=== PATIENT | male | born 1945 | race Caucasian/White ===

== ENCOUNTER 2024-10-03 12:27 | Outpatient (AMB) | payer OTHER, SELFPAY ==
--- OUTSIDE RECORDS SUMMARY | 2003-08-25 14:45 | XMS_ITS | Continuity of Care Document ---
Author Organization [facility] Address [address] [place] [phone] Phone Care Team Providers Care Acquisition Marketing Manager Name Role Phone Unavailable Unavailable Unavailable Advance Directives Directive Yes / No Effective Date File Name No Information Encounters Encounter Description Practice Location Reason(s) For Visit Diagnoses Date Provider [facility], [address] [place] [address], [place], [place], [id number], [place] tel:[phone] [facility] No Information 2003 No Information Family History Family Member Type Diagnosis Age At Onset No Information Payers Payer name Insurance type Covered democrat ID Authoriza tion(s) No Information Social History Type Description Quantity Date Captured Comments Sex Male Smoking Status No Information Chief Complaint And Reason For Visit No Information History Of Present Illness Encounter Date Complaint History Of Prese nt Illness No Information Instructions Date Instruction Additional Infor mation No Information Assessments Type Assessment Date No Information
--- NOTE | 2024-10-03 12:31 | A.OFFVIS_ITS ---
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 He was actually referred by his prior PCP Dr. [place], but patient states that his new PCP is now Dr. Doe. Any case, he does not have any known cardiac issues including coronary disease or myocardial infarction or cardiomyopathy. He states that he can randomly feels some heart fluttering. He has had that for the last 6 months or so. He does not have any clear-cut exertional angina. However, he states that sometimes when he runs to catch a bus he has noticed some shortness of breath/pressure. [facility] Medical History Macular degeneration of left eye Thyroiditis Primary hypertension Surgical History (Updated 10/03/24 @ 13:01 by Kevin Oglesby MD) Hx of partial adrenalectomy History of cataract surgery Family History (Updated 10/03/24 @ 12:36 by Ana Rosa Yo CMA) Father Heart attack Cerebral hemorrhage Social History (Updated 10/03/24 @ 12:37 by Ana Rosa Yo CMA) Alcohol intake: current Alcohol type: beer and wine Patient Tobacco Use Status: Never used Tobacco Review of Systems Const Denies chills, Denies fatigue, Denies fever(s), Denies frequent falls, Denies weakness, Denies weight gain and Denies weight loss ENT Denies dizziness Card Denies chest pain, Denies leg edema, Denies lightheadedness, Denies palpitations, Denies dyspnea, Denies dyspnea on exertion and Denies orthopnea Resp Denies cough, Denies dyspnea and Denies dyspnea on exertion GI Denies bloating and Denies change in bowel habits Musc Denies muscle weakness, Denies numbness and Denies tingling Neuro Denies dizziness, Denies frequent falls, Denies numbness, Denies tingling and Denies weakness Endo Denies fatigue and Denies palpitations Physical Exam Vital Signs: Last Vital Signs Pulse 91 10/03/24 12:33 BP 142/80 H 10/03/24 12:33 BMI result Body Mass Index 16.8 Const General: comfortable and no acute distress Orientation/consciousness: patient oriented x3 HEENT Other: Unremarkable Head: Yes normal to inspection Neck Neck: Yes normal visual inspection Chest Chest palpation & inspection: normal inspection of the chest Resp Auscultation: clear to auscultation bilaterally Cardio Palpation: normal PMI Heart sounds: S1 normal heart sound present, S2 normal heart sound present, no gallops, no murmurs and no rubs GI Palpation (GI): Soft to palpation Back/Spine/Pelvis Other: unremarkable Skin General skin exam: no rashes or lesions noted Neuro General: patient oriented x3 Extrem General: Yes normal to inspection Psych Mental Status: mental status grossly normal Office Procedures EKG Details: EKG with underlying sinus rhythm at 91/Min; frequent PVCs with right bundle morphology. [id number], Complete Assessment & Plan Assessment & Plan (1) PVC (premature ventricular contraction): Code(s): I49.3 - Ventricular premature depolarization Category: Medical Plan: Frequent PVCs on EKG. We will start with a comprehensive workup including echocardiogram, Holter monitor and exercise stress test. We discussed about this today and he is agreeable. (2) Primary hypertension: Code(s): I10 - Essential (primary) hypertension Category: Medical Plan: On lisinopril. Borderline blood pressures. May possibly need higher dosage in the future. Plan Discussion Notes I discussed with the patient the need for further cardiac evaluation to better understand the irregular heart rhythm and chest pain experienced during exertion. We talked about the importance of monitoring blood pressure and potentially adjusting the lisinopril dosage. Patient was informed and verbally consented to the use of an ambient scribe for clinic note documentation during this visit. He will need to do the lab work ordered before his testing. Orders: Orders ECG 3 day holter monitor Today I49.3 - Ventricular premature depolarization, R00.2 - Palpitations CA echo transthoracic complete Today I49.3 - Ventricular premature depolarization CA stress test Today I49.3 - Ventricular premature depolarization, R07.2 - Precordial pain NM cardiolite stress test Today I49.3 - Ventricular premature depolarization, R07.2 - Precordial pain Patient Instructions: - Undergo the scheduled echocardiogram, Holter monitor, and stress test. - Monitor blood pressure regularly and report any significant changes. - Follow up with the physician to discuss test results and any necessary adjustments to medication. Coding Level of Care Code New Pt Level 4 (57279) Complex EM visit Add On G2211 Diagnoses PVC (premature ventricular contraction) I49.3 Primary hypertension I10 CPT Codes EKG - CPT: 51575-Emudbxorodjwsdeul, Complete ([id number])
[2024-10-03 12:33] VITALS: BP 142/80; PULSE 91; BMI 16.8
--- OUTSIDE RECORDS SUMMARY | 2024-10-03 12:43 | XMS_ITS | Encounter Summary ---
Author Organization [facility] Address [address] [place] [address] Care Team Providers Care Social Science Professor Name Role Phone Physician, Pcp Unknown Primary Care Provider Susan vailable Encounter Details Date Type Department Care Team (Late st Contact Info) Description 08/07/2024 Lab Requisition [facility] - Main Lab [address] [facility] [place] [address] Vikram Soto PA [address] [facility] [address] [place], [place] [id number] Essential (primary) hypertension; Unspecified abdominal hernia without obstruction or gangrene; Other snf (current) drug therapy; Encounter for screening for malignant neoplasm of prostate Social History Tobacco Use Types Packs/Day Years Used Date Smoking Tobacco: Never Assessed Sex and Gender Information Value Date Recorded Sex Assigned at Not on file Legal Sex Male 8:38 PM EST Gender Identity Not on file Sexual Orientation Not on file documented as of this encounter Plan of Treatment Not on file documented as of this encounter Procedures Procedure Name Priority Date/Time Associated Diagnosis Comments PROSTATE SPECIFIC ANTIGEN SCREEN Routine 08/07/2024 12:00 AM EDT Essential (primary) hypertension Unspecified abdominal hernia without obstruction or gangrene 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 Encounter for screening for malignant neoplasm of prostate URINALYSIS WITH REFLEX MICROSCOPIC AND CULTURE Routine 08/07/2024 12:00 AM EDT Essential (primary) hypertension Unspecified abdominal hernia without obstruction or gangrene Other snf (current) drug therapy Encounter for screening for malignant neoplasm of prostate STEWART URINE CULTURE TUBE Routine 08/07/2024 12:00 AM EDT Essential (primary) hypertension Unspecified abdominal hernia without obstruction or gangrene Other snf (current) drug therapy Encounter for screening for malignant neoplasm of prostate SST - GOLD Routine 08/07/2024 12:00 AM EDT Essential (primary) hypertension Unspecified abdominal hernia without obstruction or gangrene 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 Encounter for screening for malignant neoplasm of prostate DRUG ABUSE SCREEN 8A PANEL, URINE Routine 08/07/2024 12:00 AM EDT Essential (primary) hypertension Unspecified abdominal hernia without obstruction or gangrene 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 Encounter for screening for malignant neoplasm of prostate CBC WITH AUTO DIFFERENTIAL Routine 08/07/2024 12:00 AM EDT Essential (primary) hypertension Unspecified abdominal hernia without obstruction or gangrene 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 Encounter for screening for malignant neoplasm of prostate LAVENDER - EDTA Routine 08/07/2024 12:00 AM EDT Essential (primary) hypertension Unspecified abdominal hernia without obstruction or gangrene Other snf (current) drug therapy Encounter for screening for malignant neoplasm of prostate VITAMIN D 25 HYDROXY Routine 08/07/2024 12:00 AM EDT Essential (primary) hypertension Unspecified abdominal hernia without obstruction or gangrene 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 Encounter for screening for malignant neoplasm of prostate URINALYSIS WITH REFLEX MICROSCOPIC AND CULTURE Routine 08/07/2024 12:00 AM EDT Essential (primary) hypertension Unspecified abdominal hernia without obstruction or gangrene Other snf (current) drug therapy Encounter for screening for malignant neoplasm of prostate CBC AND DIFFERENTIAL Routine 08/07/2024 12:00 AM EDT Essential (primary) hypertension Unspecified abdominal hernia without obstruction or gangrene Other snf (current) drug therapy Encounter for screening for malignant neoplasm of prostate C-REACTIVE PROTEIN Routine 08/07/2024 12 :00 AM EDT Essential (primary) hypertension Unspecified abdominal hernia without obstruction or gangrene 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 Encounter for screening for malignant neoplasm of prostate THYROID STIMULATING HORMONE Routine 08/07/2024 12:00 AM EDT Essential (primary) hypertension Unspecified abdominal hernia without obstruction or gangrene Other snf (current) drug therapy Encounter for screening for malignant neoplasm of prostate THYROXINE FREE Routine 08/07/2024 12:00 AM EDT Essential (primary) hypertension Unspecified abdominal hernia without obstruction or gangrene Other snf (current) drug therapy Encounter for screening for malignant neoplasm of prostate MAGNESIUM Routine 08/07/2024 12:00 AM EDT Essential (primary) hypertension Unspecified abdominal hernia without obstruction or gangrene 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 Encounter for screening for malignant neoplasm of prostate HEMOGLOBIN A1C Routine 08/07/2024 12:00 AM EDT Essential (primary) hypertension Unspecified abdominal hernia without obstruction or gangrene 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 Encounter for screening for malignant neoplasm of prostate VITAMIN B12 Routine 08/07/2024 12:00 AM EDT Essential (primary) hypertension Unspecified abdominal hernia without obstruction or gangrene Other snf (current) drug therapy Encounter for screening for malignant neoplasm of prostate COMPREHENSIVE METABOLIC PANEL Routine 08/07/2024 12:00 AM EDT Essential (primary) hypertension Unspecified abdominal hernia without obstruction or gangrene Other snf (current) drug therapy Encounter for screening for malignant neoplasm of prostate documented in this encounter Results * Urinalysis with reflex microscopic and culture (08/07/2024 12:00 AM EDT) [facility] Specific [place] Urine 1.010 1.003 - 1.030 LAB URINALYSIS - AUTOMATED METHOD 08/07/2024 7:53 PM [facility] pH, Urine 7.0 5.0 - 8.0 pH LAB URINALYSIS - AUTOMATED METHOD 08/07/2024 7:53 PM [facility] Leukocytes, Urine Negative Negative LAB URINALYSIS - AUTOMATED METHOD 08/07/2024 7:[address] [facility] Nitrite, Urine Negative Negative LAB URINALYSIS - AUTOMATED METHOD 08/07/2024 7:[address] [facility] Protein, Urine Negative <=Trace mg/dL LAB UR[facility]ALYSIS - [facility]OMATED METHOD [facility]07[facility]2024 7[facility] Glucose, Urine Negative Negative mg/dL LAB URINALYSIS - AUTOMATED METHOD 08/07/2024 7:53 [facility] Ketones, Urine Negative Negative mg/dL LAB URINALYSIS - AUTOMATED METHOD 08/07/2024 7:53 PM [facility] Urobilinogen, Urine 0.2 0.2 - 1.0 mg/dL LAB URINALYSIS - AUTOMATED METHOD 08/07/2024 7:53 PM [facility] Bilirubin, Urine Negative Negative LAB URINALYSIS - AUTOMATED METHOD 08/07/2024 7:53 [facility] Blood, Urine Negative Negative LAB URINALYSIS - AUTOMATED METHOD 08/07/2024 7:53 PM [facility] Urine Urine specimen obtained by clean catch procedure / Unknown 08/07/2024 08/07/2024 7:11 PM EDT Vikram AMARO LAB URINE ORDERABLES Final Res ult [facility] [address] [place] [address], * Stewart urine culture tube (08/07/2024 12:00 AM EDT) Extra Tube Hold for add-ons. 08/07/2024 9:[address] [facility] Comment:Auto resulted. Urine Urine specimen obtained by clean catch procedure / Unknown 08/07/2024 08/07/2024 7:05 PM EDT Vikram AMARO LAB URINE ORDERABLES Final Res ult Performing Organization Address [facility]/ZIP Co de Phone Number [facility] [address] [place] [address], [place] [phone] * Lavender tube (08/07/2024 12:00 AM EDT) Extra Tube Hold for add-ons. 08/07/2024 9:[address] [facility] Comment:Auto resulted. Blood Venous blood specimen / Unknown 08/07/2024 08/07/2024 7:05 PM EDT Vikram AMARO LAB BLOOD ORDERABLES Final Res ult Performing Organization Address [facility] Co de Phone Number [facility] [address] [place] [address], [place] [phone] * SST tube (08/07/2024 12:00 AM EDT) Extra Tube Hold for add-ons. 08/07/2024 9:[address] [facility] Comment:Auto resulted. Blood Venous blood specimen / Unknown 08/07/2024 08/07/2024 7:05 PM EDT Vikram AMARO LAB BLOOD ORDERABLES Final Res ult Performing Organization Address City/[facility]/ZIP Co de Phone Number [facility] [address] [place] [address], [place] [phone] * (ABNORMAL) CBC auto differential (08/07/2024 12:00 AM EDT) WBC 5.1 4.8 - 10.8 K/[facility] LAB HEMETOLOGY METHOD 08/07/2024 7:[address] [facility] RBC 4.80 4.50 - 5.50 M/mcL LAB HEMETOLOGY METHOD 08/07/2024 7:[address] [facility] Hemoglobin 14.1 13.5 - 17.5 g/dL LAB HEMETOLOGY METHOD 08/07/2024 7:28 PM [facility] Hematocrit 42.6 42.0 - 54.0 % LAB HEMETOLOGY METHOD 08/07/2024 7:28 PM [facility] MCV 89.5 79.0 - 98.0 FL LAB HEMETOLOGY METHOD 08/07/2024 7:28 [facility] MCH 29.6 27.0 - 32.0 pcg LAB HEMETOLOGY METHOD 08/07/2024 7:28 PM [facility] MCHC 33.1 32.0 - 37.0 g/dL LAB HEMETOLOGY METHOD 08/07/2024 7:28 PM [facility] RDW 12.7 11.0 - 15.0 % LAB HEMETOLOGY METHOD 08/07/2024 7:28 PM [facility] Platelets 162 130 - 400 K/mcL LAB HEMETOLOGY METHOD 08/07/2024 7:28 PM [facility] MPV 11.5(H) 7.0 - 11.0 FL LAB HEMETOLOGY METHOD 08/07/2024 7:28 PM [facility] NRBC 0.0 <1.0 % LAB HEMETOLOGY METHOD 08/07/2024 7:28 PM [facility] NRBC Absolute 0.00 <0.10 K/mcL LAB HEMETOLOGY METHOD 08/07/2024 7:28 [facility] Neutrophils Relative 48.3 % LAB HEMETOLOGY METHOD 08/07/2024 7:28 PM [facility] Lymphocytes Relative 36.5 % LAB HEMETOLOGY METHOD 08/07/2024 7:[address] [facility] Monocytes Relative 7.7 % LAB HEMETOLOGY METHOD 08/07/2024 7:[address] [facility] Eosinophils Relative 6.7 % LAB HEMETOLOGY METHOD 08/07/2024 7:28 [facility] Basophils Relative 0.6 % LAB HEMETOLOGY METHOD 08/07/2024 7:[address] [facility] Immature Granulocytes Relative 0.2 % LAB HEMETOLOGY METHOD 08/07/2024 7:[address] [facility] Neutrophils Absolute 2.45 1.50 - 7.00 K/mcL LAB HEMETOLOGY METHOD 08/07/2024 7:28 [facility] Lymphocytes Absolute 1.85 1.00 - 5.00 K/mcL LAB HEMETOLOGY METHOD 08/07/2024 7:[address] [facility] Monocytes Absolute 0.39 0.20 - 1.00 K/mcL LAB HEMETOLOGY METHOD 08/07/2024 7:[address] [facility] Eosinophils Absolute 0.34 0.00 - 0.50 K/mcL LAB HEMETOLOGY METHOD 08/07/2024 7:28 [facility] Basophils Absolute 0.03 0.00 - 0.20 K/mcL LAB HEMETOLOGY METHOD 08/07/2024 7:28 [facility] Immature Granulocytes Absolute 0.01 0.00 - 0.03 K/mcL LAB HEMETOLOGY METHOD 08/07/2024 7:[address] [facility] Blood Venous blood specimen / Unknown 08/07/2024 08/07/2024 7:05 PM EDT us Vikram AMARO LAB BLOOD ORDERABLES Final Res ult [facility] [address] [place] [address], [place] [phone] * Vitamin D 25 hydroxy (08/07/2024 12:00 AM EDT) Vit D, 25-Hydroxy 66.8 30.0 - 80.0 ng/mL LAB CHEMISTRY METHOD 08/07/2024 9:[address] [facility] Blood Venous blood specimen / Unknown 08/07/2024 08/07/2024 7:05 PM EDT us Vikram AMARO LAB BLOOD ORDERABLES Final Res ult [facility] [address] [place] [address], [place] [phone] * Thyroid stimulating hormone (08/07/2024 12:00 AM EDT) Pathologist [facility] TSH 1.14 0.40 - 4.00 mcIU/mL LAB CHEMISTRY METHOD 08/07/2024 9:[address] [facility] Blood Venous blood specimen / Unknown 08/07/2024 08/07/2024 7:05 PM EDT us Vikram AMARO LAB BLOOD ORDERABLES Final Res ult [facility] [address] [place] [address], [place] [phone] * Prostate specific antigen screen (08/07/2024 12:00 AM EDT) PSA 1.33 0.00 - 4.00 ng/mL LAB CHEMISTRY METHOD 08/07/2024 9:[address] [facility] Blood Venous blood specimen / Unknown 08/07/2024 08/07/2024 7:[address] [facility] - 08/07/2024 9:12 PM EDT The Siemens Advia Centaur Chemiluminescent Immunoassay is used. Results obtained with different assay methods or kits cannot be used interchangeably. Results cannot be interpreted as absolute evidence of the presence or absence of malignant disease. Vikram AMARO LAB BLOOD ORDERABLES Final Res ult Performing Organization Address [facility]/ZIP Co de Phone Number [facility] [address] [place] [address], [place] [phone] * Magnesium (08/07/2024 12:00 AM EDT) Magnesium 2.1 1.9 - 2.6 mg/dL LAB CHEMISTRY METHOD 08/07/2024 8:[address] [facility] Blood Venous blood specimen / Unknown 08/07/2024 08/07/2024 7:05 PM EDT Vikram AMARO LAB BLOOD ORDERABLES Final Res ult Performing Organization Address [facility] Co de Phone Number [facility] [address] [place] [address], [place] [phone] * (ABNORMAL) Hemoglobin A1c (08/07/2024 12:00 AM EDT) Hemoglobin A1C 6.5(H) <6.5 % LAB CHEMISTRY METHOD 08/07/2024 9:[address] [facility] Mean Bld Glu Estim. 140 mg/dL LAB CHEMISTRY METHOD 08/07/2024 9:[address] [facility] Blood Venous blood specimen / Unknown 08/07/2024 08/07/2024 7:05 PM EDT Vikram AMARO LAB BLOOD ORDERABLES Final Res ult Performing Organization Address [facility]/ZIP Co de Phone Number [facility] [address] [place] [address], [place] [phone] * Thyroxine free (08/07/2024 12:00 AM EDT) Free T4 1.20 0.70 - 1.80 ng/dL LAB CHEMISTRY METHOD 08/07/2024 9:[address] [facility] Blood Venous blood specimen / Unknown 08/07/2024 08/07/2024 7:05 PM EDT us Vikram AMARO LAB BLOOD ORDERABLES Final Res ult [facility] [address] [place] [address], * C-reactive protein (08/07/2024 12:00 AM EDT) [facility] C-Reactive Protein <0.29 <=0.50 mg/dL LAB CHEMISTRY METHOD 08/07/2024 8:[address] [facility] Blood Venous blood specimen / Unknown 08/07/2024 08/07/2024 7:05 PM EDT us Vikram AMARO LAB BLOOD ORDERABLES Final Res ult [facility] [address] [place] [address], [place] [phone] * (ABNORMAL) Vitamin B12 (08/07/2024 12:00 AM EDT) Pathologist [facility] Vitamin B-12 939(H) 250 - 900 pcg/mL LAB CHEMISTRY METHOD 08/07/2024 9:[address] [facility] Blood Venous blood specimen / Unknown 08/07/2024 08/07/2024 7:05 PM EDT us Vikram AMARO LAB BLOOD ORDERABLES Final Res ult [facility] [address] [place] [address], * (ABNORMAL) Drug abuse screen 8a panel, urine (08/07/2024 12:00 AM EDT) Amphetamine Screen, Ur Negative Negative LAB CHEMISTRY METHOD 5 8:[address] [facility] Comment:Certain OTC medicati ons containing ephedrine, phenylephrine, pseudoephedrine and phenylpropanolamine can cause false positive results. Barbiturate Screen, Ur Negative Negative LAB CHEMISTRY METHOD 5 8:[address] [facility] Benzodiazepine Screen, Ur Positive(A ) Negative LAB CHEMISTRY METHOD 5 8:[address] [facility] Cocaine Screen, Ur Negative Negative [facility] Opiate Screen, Ur Negative Negative LAB CHEMISTRY METHOD 5 8:55 PM [facility] Cannabinoid (THC) Screen, Ur Negative Negative LAB CHEMISTRY METHOD 5 8:[address] [facility] Comment:Specimens from patie nts taking pantoprazole sodium (Protonix) have been shown to produce false positive results. Oxycodone Screen, Ur Negative Negative LAB CHEMISTRY METHOD 5 8:[address] [facility] Fentanyl, Ur Negative Negative LAB CHEMISTRY METHOD 5 8:55 PM [facility] Urine Urine specimen obtained by clean catch procedure / Unknown 08/07/2024 08/07/2024 7:[address] [facility] - 08/07/2024 8:55 PM EDT Assay cutoffs: Amphetamines 1000 ng/mL Barbiturates 200 ng/mL Benzodiazepines 200 ng/mL Cocaine 300 ng/mL Fentanyl 1 ng/mL Opiates 300 ng/mL Oxycodone 100 ng/mL THC 50 ng/mL Semi-quantitative assay for screening purposes only. Unconfirmed screening result should not be used for non-medical purposes. *ALTERNATE METHOD CONFIRMATION DONE UPON REQUEST ONLY* us Vikram AMARO LAB URINE ORDERABLES Final Res ult [facility] [address] [place] [address], [place] [phone] * (ABNORMAL) Comprehensive metabolic panel (08/07/2024 12:00 AM EDT) Sodium 140 133 - 145 mmol/L LAB CHEMISTRY METHOD 08/07/2024 9:16 PM [facility] Potassium 4.1 3.5 - 5.5 mmol/L LAB CHEMISTRY METHOD 08/07/2024 9:16 PM [facility] Chloride 109 96 - 110 mmol/L LAB CHEMISTRY METHOD 08/07/2024 9:16 PM [facility] CO2 25 21 - 32 mmol/L LAB CHEMISTRY METHOD 08/07/2024 9:16 PM [facility] Anion Gap 6 3 - 11 LAB CHEMISTRY METHOD 08/07/2024 9:16 PM [facility] Glucose 103(H) 70 - 100 mg/dL LAB CHEMISTRY METHOD 08/07/2024 9:16 PM [facility] BUN 20 5 - 25 mg/dL LAB CHEMISTRY METHOD 08/07/2024 9:16 PM [facility] Creatinine 1.06 0.70 - 1.30 mg/dL LAB CHEMISTRY METHOD 08/07/2024 9:16 PM [facility] eGFR 73 >=60 mL/min/1. 73m2 LAB CHEMISTRY METHOD 08/07/2024 9:16 PM [facility] Comment:Calculation based on the Chronic Kidney Disease Epidemiology Collaboration (CKD-EPI) equation refit without adjustment for race. BUN/Creatinine Ratio 18.9 LAB CHEMISTRY METHOD 08/07/2024 9:16 PM [facility] Calcium 8.9 8.5 - 10.5 mg/dL LAB CHEMISTRY METHOD 08/07/2024 9:16 PM [facility] AST (SGOT) 20 10 - 42 unit/L LAB CHEMISTRY METHOD 08/07/2024 9:16 PM [facility] ALT (SGPT) 27 10 - 60 unit/L LAB CHEMISTRY METHOD 08/07/2024 9:16 PM [facility] Alkaline Phosphatase 58 42 - 121 unit/L LAB CHEMISTRY METHOD 08/07/2024 9:16 PM [facility] Total Protein 7.3 6.0 - 8.0 g/dL LAB CHEMISTRY METHOD 08/07/2024 9:16 PM [facility] Albumin 4.1 3.2 - 5.0 g/dL LAB CHEMISTRY METHOD 08/07/2024 9:16 PM [facility] Total Bilirubin 0.6 0.0 - 1.4 mg/dL LAB CHEMISTRY METHOD 08/07/2024 9:16 PM [facility] Blood Venous blood specimen / Unknown 08/07/2024 08/07/2024 7:05 PM EDT us Vikram AMARO LAB BLOOD ORDERABLES Final Res ult 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
--- OUTSIDE RECORDS SUMMARY | 2024-10-03 12:43 | XMS_ITS | Encounter Summary ---
Author Organization [employer] Address [address] [place] [address] Care Team Providers Care Explosive Operator Name Role Phone Kd Eaton DMD Unavailable Reason for Visit * Reason Onset Date Comments emergency dental insurance 03/22/2024 Encounter Details Date Type Department Care Team (Late Contact Info) Description 03/22/2024 Telephone [facility] [address] [place] [address] Kd Eaton DMD [address] [place] [address] emergency dental insurance Social History Tobacco Use Types Packs/Day Years Used Date Smoking Tobacco: Never Smokeless Tobacco: Never Alcohol Use Standard Drinks/Week Comments Yes 5 (1 standard drink = 0.6 oz pur e alcohol) Sex and Gender Information Value Date Recorded Sex Assigned at Male 01/31/2022 10:23 AM EDT Legal Sex Male 10:23 AM EDT Gender Identity Male 11/02/2023 10:36 AM EDT Sexual Orientation Choose not to disclose 2021 10:23 AM EDT documented as of this encounter Miscellaneous Notes * Telephone Encounter - Anjelica Coppola - 03/22/2024 8:14 AM EST Patient states he has dentaquest but did not have the id number on hand. Coming in as emergency appt at 11:30. Informed he should be bringing his insurance card with him to visit and present at checkin. Patient understood DR documented in this encounter Plan of Treatment Upcoming Encounters Date Type Department Care Team (Late Contact Info) Description 01/27/2025 1:00 PM EDT Office Visit [facility] [address] [place] [address] Maribel Blanco documented as of this encounter Visit Diagnoses Not on filedocumented in this encounter Care Teams Explosive Operator Relationship Specialty Start Date End Date Kd Eaton DMD [address] [place] [address] Dental Corner Former 04/01/24 documented as of this encounter
== END 2024-10-03 13:16 | disposition home or self-care (01) ==
LOC: HO.HCS 12:27
PROVIDERS: PCP Internal Medicine; Visit Provider Internal Medicine
DX: I49.3 Ventricular premature depolarization (principal); I10 Essential (primary) hypertension
CPT/HCPCS: 93010; 99204; G2211

== ENCOUNTER → 2024-10-03 12:27 | Outpatient (BNVA) | payer OTHER, SELFPAY | PROVIDERS: PCP Internal Medicine; Visit Provider Internal Medicine | DX: I49.3 Ventricular premature depolarization (principal); I10 Essential (primary) hypertension; R07.2 Precordial pain | CPT/HCPCS: 93005; 99202 ==

== ENCOUNTER → 2024-11-14 12:47 | Outpatient (REF) | payer OTHER, SELFPAY ==
--- OUTSIDE RECORDS SUMMARY | 2003-08-25 14:45 | XMS_ITS | Continuity of Care Document ---
Author Organization [facility] Address [address] [place] [phone] Phone Care Team Providers Care Map And Chart Mounter Name Role Phone Unavailable Unavailable Unavailable Advance Directives Directive Yes / No Effective Date File Name No Information Encounters Encounter Description Practice Location Reason(s) For Visit Diagnoses Date Provider [facility], [address] [place] [address], [place], [place], [id number], [place] tel:[phone] [facility] No Information 2003 No Information Family History Family Member Type Diagnosis Age At Onset No Information Payers Payer name Insurance type Covered alliance party ID Authoriza tion(s) No Information Social History Type Description Quantity Date Captured Comments Sex Male Smoking Status No Information Chief Complaint And Reason For Visit No Information History Of Present Illness Encounter Date Complaint History Of Prese nt Illness No Information Instructions Date Instruction Additional Infor mation No Information Assessments Type Assessment Date No Information
--- NOTE | 2024-11-14 12:50 | CA_ITS ---
Transthoracic Echocardiogram Patient (Last, First, Middle): Edgar Ling, Gender: Male Date of : 1945 Age: 79 Procedure Date: 11/14/2024 Procedure Type: Transthoracic Echocardiogram Location: OP Height: 175.26 cm Weight: 89.36 kg BSA: 2.05 m2 Heart Rate: bpm BP: 150 / 64 mmHg Mat Linker: TO Referring MD: Kevin Oglesby MD Bulk Pigment Reducer: Jaiden Carmona MD Symptoms: I49.3 - Ventricular premature depolarization Study Quality: Adequate ECG Rhythm: Frequent ventricular premature beats Conclusions: - 1. Normal LV ejection fraction of 60 65% with impaired relaxation filling pattern 2. Mild left atrial enlargement 3. Mild mitral regurgitation 4. Mildly dilated ascending aorta at 4 cm 5. No gross pericardial effusion Findings Left Ventricle Normal left ventricular size, thickness, and systolic function. The visually estimated ejection fraction is between 60-65%. Spectral Doppler is indicative of an impaired relaxation filling pattern. E/E prime ratio is between 8 and 15 consistent with indeterminate filling pressures. Right Ventricle Normal right ventricular cavity size and systolic function. Atria The left atrium is mildly dilated. There is no evidence of interatrial shunt. The right atrium is normal in size. Aortic Valve Normal aortic valve structure and function. There is no aortic valve stenosis. There is no aortic valve regurgitation. Mitral Valve Normal mitral valve structure and function. There is mild mitral valve regurgitation. There is no mitral valve stenosis. Pulmonic Valve The pulmonic valve is likely normal. There is trace pulmonic valve regurgitation. Tricuspid Valve Normal tricuspid valve structure. Tricuspid regurgitation envelope is inadequate for calculation of right ventricular systolic pressure. Normal right atrial pressure. Great Vessels The pulmonary artery was not well visualized. There is mild dilatation of the ascending aorta measuring 4.00 cm. Venous The inferior vena cava is normal in size and collapses greater than 50% with inspiration. Pericardium/Pleural There is no evidence of pericardial effusion. Prior Study Comparison No prior study available for comparison. Measurements 2D Linear Measurements IVSd: 0.93 0.6-0.9/0.6-1.0 cm LVIDd: 5.12 3.9-5.3/4.2-5.9 cm LVIDd Index: 2.50 2.4-3.2/2.2-3.1 cm/m2 LVIDs: 3.98 2.0-3.6 cm LVPWd: 0.70 0.7-1.1 cm LA Diam: 3.90 2.7-3.8/3.0-4.0 cm LAIDs Index: 1.90 1.5-2.3 cm/m2 LV Mass: 180.55 67-162/88-224 g LV Mass Index: 88.07 43-95/49-115 g/m2 LVOT Diam: 2.50 3.0+(-)1.3 cm 2D Systolic Function EF 4C: 62.70 >55% EF 2C: 60.10 >55% EF BiP: 61.20 >55% Mitral Valve E'Lateral: 8.49 E'Medial: 7.83 Aortic Valve AoV Pk Patrick: 0.98 AoV Pk Grad: 4.00 LVOT LVOT Pk Patrick: 1.16 LVOT Mn Patrick: 0.83 LVOT VTI: 0.22 LVOT Pk Grad: 5.00 LVOT Mn Grad: 3.00 LVOT Diam: 2.50 LVOT Area: 4.91 Diastolic Function E'Medial: 7.83 E' Laterial: 8.49 Right Ventricle TAPSE (mm): 27.40 TVS' Patrick: 12.00 Tricuspid Valve RA Press: 3.00 Great Vessels Aorta Sinus of Valsalva: 3.52 2.0-3.5 cm Ao Asc: 4.00 2.1-3.4 cm Updated in Other Vendor System with Status of Final Jaiden Carmona MD electronically signed on 11/14/2024 4:18:54 PM with status of Final
--- NOTE | 2024-11-14 12:50 | HM_ITS ---
* Total monitoring time 3 days. * Underlying rhythm is sinus with an average rate of 79/Min. * Frequent supraventricular ectopy with a burden of 27%. * Rare ventricular ectopy. Rare couplets and triplets. * No significant pauses or high-grade AV blocks. * No patient markers or diary events. * No patient markers. * Diary entries without any specific times. MTDD
--- OUTSIDE RECORDS SUMMARY | 2024-11-14 13:31 | XMS_ITS | Encounter Summary ---
Author Organization [facility] Address [address] [facility] [address] [place] [address] Phone Care Team Providers Care Cook'S Assistant Name Role Phone Dorian Villalobos MD Unavailable [phone] Vladimir Jones MD Unavailable [phone] Karen Love MD Primary Care Provide r Roger Benedict MD Primary Care Provider + Encounter Details Date Type Department Care Team (Latest Contact Info) Description 06/17/2020 Transcribe Orders [facility] [address] [place] [address] Karen Love MD [address] [place] [address] Essential hypertension, malignant (Primary Dx); Anxiety hyperventilation Social History Tobacco Use Types Packs/Day Years Used Date Smoking Tobacco: Never Smokeless Tobacco: Never Alcohol Use Standard Drinks/Week Comments Yes 0 (1 standard drink = 0.6 oz pur e alcohol) 1 shot per day Sex and Gender Information Value Date Recorded Sex Assigned at Male 05/14/2020 12:12 PM EST Legal Sex Male 6:52 PM EST Gender Identity Male 05/14/2020 12:12 PM EST Sexual Orientation Something else 05/29/2020 4: 19 PM EST documented as of this encounter Functional Status * Calculated C-SSRS Risk Score (Lifetime/Recent) Answer Date of Assessment Author No Risk Indicated 06/17/2020 12:40 PM EDT Luz Lin RN * [place] Suicide Severity Rating Scale (Screener/Recent Self-Report) Question Answer Date of Assessment Author 1. Wish to be (Past 1 Month) No 021 12:40 PM EDT Luz Lin, KAYY 2. Non-Specific Active Suici cory Thoughts (Past 1 Month) No 06/17/2020 12:40 PM EDT Qian Lin RN 6. Suicidal Behavior (Lifetime) No 12:40 PM EDT Luz Lin, KAYY documented as of this encounter Plan of Treatment Not on file documented as of this encounter Results * Microalbumin/creatinine ratio, random urine (06/17/2020 2:24 PM EDT) URINE MICROALBUMIN <1.2 0 - 2.3 mg/dL [facility] URINE CREATININE 61 mg/dL [facility] MICROALB/CRE RATIO NOT CALCULATED 0 - 20 mg/g Cre [facility] Comment:due to Microalbumin <1.2 Urine (Urine) 06/17/2020 2:2 4 PM EDT 06/17/2020 2:30 PM EDT us Karen Love MD URINE ORDERABLES Мария l Result Performing Organization Address [facility]/ZIP Co de Phone Number [address] [address] * (ABNORMAL) Hemoglobin A1c (06/17/2020 2:24 PM EDT) HEMOGLOBIN A1C 6.1(H) 4.3 - 5.8 % [facility] Blood 06/17/2020 2:24 PM EDT 06/17/2020 2:29 PM EDT us Karen Love MD LAB BLOOD ORDERABLES Final Result Performing Organization Address City/[facility]/ZIP Co de Phone Number [address] [address] * TSH with reflex (06/17/2020 2:24 PM EDT) TSH 1.14 0.27 - 4.20 uIU/mL [facility] Blood 06/17/2020 2:24 PM EDT 06/17/2020 2:29 PM EDT Karen Love MD LAB BLOOD ORDERABLES Final Result [address] [address] * PSA (screening) (06/17/2020 2:24 PM EDT) PSA 1.57 0 - 4.00 ng/mL [facility] Blood 06/17/2020 2:24 PM EDT 06/17/2020 2:30 PM EDT Karen Love MD LAB BLOOD ORDERABLES Final Result Performing Organization Address City/[facility]/ZIP Co de Phone Number [address] [address] * (ABNORMAL) Lipid panel (06/17/2020 2:24 PM EDT) HDL 59 mg/dL [facility] Comment: Interpretation <40 mg/dL: Low HDL cholesterol (major risk factor for CHD) Greater than or equal to 60 mg/dL: High HDL cholesterol ( negative risk factor for CHD) HDL - cholesterol is affected by a number of factors, e.g. smoking, excerise, hormones, sex and age. CHOLESTEROL 196 0 - 240 mg/dL [facility] TRIGLYCERIDES 106 30 - 160 mg/dL [facility] LDL 116 50 - 129 mg/dL [facility] Comment: LDL levels in terms of risk for coronary heart disease: <100 mg/dL: Optimal 100-129 mg/dL: Near or above optimal 130-159 mg/dL: Borderline high 160-189 mg/dL: High >190 mg/dL: Very High CARDIAC RISK RATIO 3.3(L) 3.4 - 5.0 C [facility] Blood 06/17/2020 2:24 PM EDT 06/17/2020 2:29 PM EDT us Karen Love MD LAB BLOOD ORDERABLES Final Result Performing Organization Address City/[facility] Co de Phone Number [address] [address] * (ABNORMAL) Comprehensive metabolic panel (06/17/2020 2:24 PM EDT) SODIUM 140 133 - 146 mmol/L [facility] POTASSIUM 4.7 3.3 - 5.1 mmol/L [facility] CHLORIDE 104 96 - 108 mmol/L [facility] CO2 27 21 - 35 mmol/L [facility] BUN 19 6 - 19 mg/dL [facility] CREATININE 0.90 0.5 - 1.5 mg/dL [facility] GLUCOSE 105(H) 70 - 99 mg/dL [facility] ALBUMIN 4.6 3.9 - 4.8 g/dL [facility] TOTAL PROTEIN 7.4 6.5 - 8.0 g/dL [facility] CALCIUM 9.5 8.4 - 10.3 mg/dL [facility] ALKALINE PHOSPHATASE 52 39 - 117 U/L [facility] TOTAL BILIRUBIN 0.4 0.0 - 1.2 mg/dL [facility] AST 24 0 - 37 U/L [facility] ALT 20 0 - 40 U/L [facility] GLOBULIN 2.8 1 - 4.8 g/dL [facility] EGFR 85 >59 mL/min/1.7 3m2 [facility] Comment:Estimated glomerular filtration rate calculated using the CKD-EPI equation. ANION GAP 14 10 - 20 mmol/L [facility] Blood 06/17/2020 2:24 PM EDT 06/17/2020 2:29 PM EDT us Karen Love MD LAB BLOOD ORDERABLES Final Result [facility] [address] [place] [address] * CBC and differential (06/17/2020 2:24 PM EDT) WBC 4.71 4.00 - 11.00 K/uL [facility] RBC 4.70 3.90 - 5.69 M/uL [facility] HGB 14.4 12.4 - 17.3 g/dL [facility] HCT 42.0 37.0 - 51.0 % [facility] PLT 154 140 - 430 K/uL [facility] MCV 89.4 78.0 - 97.0 fL [facility] MCH 30.6 25.0 - 33.0 pg [facility] MCHC 34.3 32.0 - 36.0 g/dL [facility] RDW 12.1 11.0 - 15.0 % [facility] MPV 11.3 8.4 - 12.8 fl [facility] NRBC 0.00 0 /100 WBCs [facility] ABSOLUTE NRBC 0.00 0 K/uL [facility] DIFF METHOD Auto [facility] NEUTS 50.2 43.0 - 75.0 % [facility] LYMPHS 33.5 18.2 - 47.4 % [facility] MONOS 7.6 4.00 - 11.00 % [facility] EOS 7.4 0.0 - 8.0 % [facility] BASOS 1.1 0.0 - 2.0 % [facility] Granulocytes, immature (%) 0.2 0.0 - 0.9 % [facility] ABSOLUTE NEUTS 2.36 1.80 - 7.70 K/uL [facility] ABSOLUTE LYMPHS 1.58 1.00 - 3.10 K/uL [facility] ABSOLUTE MONOS 0.36 0.20 - 0.80 K/uL [facility] ABSOLUTE EOS 0.35 0.00 - 0.80 K/uL [facility] ABSOLUTE BASOS 0.05 0.00 - 0.09 K/uL [facility] Granulocytes, immature 0.01 0.00 - 0.05 K/uL [facility] Blood 06/17/2020 2:24 PM EDT 06/17/2020 2:29 PM EDT Karen Love MD LAB BLOOD ORDERABLES Final Result [facility] [address] [place] [address] documented in this encounter Visit Diagnoses Diagnosis Essential hypertension, malignant- Primary Anxiety hyperventilation Respiratory malfunction arising from mental factors documented in this encounter Care Teams Cook'S Assistant Relationship Specialty Start Date End Date Karen Love MD [address] [place] [address] PCP - General Internal Medicine 05/29/20 12/21/21 Roger Benedict MD [address] [place] [id number] PCP - General Internal Medicine 12/22/21 Dorian Villalobos MD [address] [place] [address] [address] [place] [address] [email or web address] Historical LMR Provider 01/18/17 04/10/21 Vladimir Jones MD [address] [place] [id number] Historical LMR Provider 01/18/17 documented as of this encounter Additional Source Comments The information contained in this document represents components of the legal health record. It is not the complete legal health record.[facility]
--- OUTSIDE RECORDS SUMMARY | 2024-11-14 13:31 | XMS_ITS | Clinical Summary ---
Author Organization [employer] Address [address] [facility] [address] [place] [address] Care Team Providers Care Tools Developer Name Role Phone Kd Eaton DMD Unavailable Allergies Active Allergy Reactions Criticality Noted Date Comments Acetaminophen 08/20/2018 Makes him ill Clindamycin 03/09/2020 Bleeding when patient uses bathroom Clonazepam 06/17/2020 Fluoxetine 06/30/2020 Penicillins Itching 07/21/2016 Propranolol Other 03/29/2015 paresthesia Medications ALPRAZolam (Xanax) 1 MG tablet Take 1 tablet by mouth every 8 (eight) hours. 07/21/2016 Active lisinopril 5 MG tablet Take 15 mg by mouth Once per day. Active Active Problems Problem Noted Date Diagnosed Date Severe dental caries 04/17/2024 Retained dental root 04/17/2024 Social History Tobacco Use Types Packs/Day Years Used Date Smoking Tobacco: Never Smokeless Tobacco: Never Tobacco Cessation:Counseling Given: Not Answered Alcohol Use Standard Drinks/Week Comments Yes 5 (1 standard drink = 0.6 oz pur e alcohol) Sex and Gender Information Value Date Recorded Sex Assigned at Male 01/31/2022 10:23 AM EDT Legal Sex Male 10:23 AM EDT Gender Identity Male 11/02/2023 10:36 AM EDT Sexual Orientation Choose not to disclose 2021 10:23 AM EDT Last Filed Vital Signs Vital Sign Reading Time Taken Comments Blood Pressure 140/66 08/05/2024 10:36 AM EDT Pulse 48 08/05/2024 10:36 AM EDT Temperature - - Respiratory Rate - - Oxygen Saturation - - Inhaled Oxygen Concentration - - Weight - - Height - - Body Mass Index - - Plan of Treatment Upcoming Encounters Date Type Department Care Team (Late st Contact Info) Description 01/27/2025 1:00 PM EDT Office Visit [facility] [address] [place] [address] Maribel Blanco Health Maintenance Due Date Last Done Comments Depression Screening 1945 Lipid Panel 1945 SDOH Screening 1945 Alcohol/Substance Use Screening 1959 Hepatitis C Screening 09/12/1965 Zoster Vaccines (1 of 2) 09/12/1997 Pneumococcal Vaccine: 50+ Years (2 of 2 - PPSV23) 12/01/2020 12/02/2019 RSV Patients and Patients Aged 60 years or older (1 - 1-dose 75+ series) 09/12/2022 COVID-19 Vaccine (3 - season) 2023 02/16/2021, 07/29/2020 Dental Oral Exam 11/15/2024 05/17/2024 Influenza Vaccine (#1) 2024 , 01/15/2022, 12/30/2020, Additional history exists Dental Prophylaxis 01/08/2025 07/08/2024 Dental X-Ray: Bitewings 05/18/2025 05/17/2024, 03/22 Tobacco Screening 08/05/2025 08/05/2024 Dental X-Ray: Full Mouth 05/18/2027 05/17/2024 DTaP/Tdap/Td Vaccines (2 - Td or Tdap) 08/01/2030 08/01/2020 HIB Vaccines Aged Out No longer eligi ble based on patient's age to complete this topic HPV Vaccines Aged Out No longer eligi ble based on patient's age to complete this topic Hepatitis A Vaccines Aged Out No long er eligible based on patient's age to complete this topic Hepatitis B Vaccines Aged Out No long er eligible based on patient's age to complete this topic IPV Vaccines Aged Out No longer eligi ble based on patient's age to complete this topic Meningococcal B Vaccine Aged Out No l onger eligible based on patient's age to complete this topic Meningococcal Vaccine Aged Out No geeta charan eligible based on patient's age to complete this topic RSV under 20 months Aged Out No longe r eligible based on patient's age to complete this topic Rotavirus Vaccines Aged Out No longer eligible based on patient's age to complete this topic Procedures Procedure Name Priority Date/Time Associated Diagnosis Comments PROPHYLAXIS - ADULT Routine 07/08/2024 1 1:00 AM EDT Dental calculus Dental plaque INTRAORAL - COMPLETE SERIES OF RADIOGRAPHIC IMAGES Routine 05/17/2024 1:30 PM EST PERIODIC ORAL EVALUATION - ESTABLISHED PATIENT Routine 05/17/2024 1:30 PM EST from Last 3 Months or Most Recently Relevant to Health Maintenance Insurance DENTAL - DQ [facility] [employer] Care Teams Tools Developer Relationship Specialty Start Date End Date Kd Eaton DMD [address] [place] [id number] Dental Fire Boss 04/01/24
--- OUTSIDE RECORDS SUMMARY | 2024-11-14 13:32 | XMS_ITS | Encounter Summary ---
Author Organization [facility] Address [address] [place] [address] Care Team Providers Care Acoustical Material Worker Name Role Phone Physician, Pcp Unknown Primary Care Provider Susan vailable Encounter Details Date Type Department Care Team (Late st Contact Info) Description 08/07/2024 Lab Requisition [facility] - Main Lab [address] [facility] [place] [address] Vikram Soto PA [address] [facility] [address] [place], [place] [id number] Essential (primary) hypertension; Unspecified abdominal hernia without obstruction or gangrene; 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; Encounter for screening for [...] abdominal hernia without obstruction or gangrene Other prison (current) drug therapy Encounter for screening for malignant neoplasm of prostate URINALYSIS WITH REFLEX MICROSCOPIC AND CULTURE Routine 08/07/2024 12:00 AM EDT Essential (primary) hypertension Unspecified abdominal hernia without obstruction or gangrene 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 Encounter for screening for malignant neoplasm of prostate STEWART URINE CULTURE TUBE Routine 08/07/2024 12:00 AM EDT Essential (primary) hypertension Unspecified abdominal hernia without obstruction or gangrene Other prison (current) drug therapy Encounter for screening for malignant neoplasm of prostate SST - GOLD Routine 08/07/2024 12:00 AM EDT Essential (primary) hypertension Unspecified abdominal hernia without obstruction or gangrene 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 Encounter for screening for malignant neoplasm of prostate DRUG ABUSE SCREEN 8A PANEL, URINE Routine 08/07/2024 12:00 AM EDT Essential (primary) hypertension Unspecified abdominal hernia without obstruction or gangrene 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 Encounter for screening for malignant neoplasm of prostate CBC WITH AUTO DIFFERENTIAL Routine 08/07/2024 12:00 AM EDT Essential (primary) hypertension Unspecified abdominal hernia without obstruction or gangrene Other prison (current) drug therapy Encounter for screening for malignant neoplasm of prostate LAVENDER - EDTA Routine 08/07/2024 12:00 AM EDT Essential (primary) hypertension Unspecified abdominal hernia without obstruction or gangrene Other prison (current) drug therapy Encounter for screening for malignant neoplasm of prostate VITAMIN D 25 HYDROXY Routine 08/07/2024 12:00 AM EDT Essential (primary) hypertension Unspecified abdominal hernia without obstruction or gangrene 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 Encounter for screening for malignant neoplasm of prostate URINALYSIS WITH REFLEX MICROSCOPIC AND CULTURE Routine 08/07/2024 12:00 AM EDT Essential (primary) hypertension Unspecified abdominal hernia without obstruction or gangrene 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 Encounter for screening for malignant neoplasm of prostate CBC AND DIFFERENTIAL Routine 08/07/2024 12:00 AM EDT Essential (primary) hypertension Unspecified abdominal hernia without obstruction or gangrene Other prison (current) drug therapy Encounter for screening for malignant neoplasm of prostate C-REACTIVE PROTEIN Routine 08/07/2024 12 :00 AM EDT Essential (primary) hypertension Unspecified abdominal hernia without obstruction or gangrene 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 Encounter for screening for malignant neoplasm of prostate THYROID STIMULATING HORMONE Routine 08/07/2024 12:00 AM EDT Essential (primary) hypertension Unspecified abdominal hernia without obstruction or gangrene 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 Encounter for screening for malignant neoplasm of prostate THYROXINE FREE Routine 08/07/2024 12:00 AM EDT Essential (primary) hypertension Unspecified abdominal hernia without obstruction or gangrene 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 Encounter for screening for malignant neoplasm of prostate MAGNESIUM Routine 08/07/2024 12:00 AM EDT Essential (primary) hypertension Unspecified abdominal hernia without obstruction or gangrene 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 Encounter for screening for malignant neoplasm of prostate HEMOGLOBIN A1C Routine 08/07/2024 12:00 AM EDT Essential (primary) hypertension Unspecified abdominal hernia without obstruction or gangrene 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 Encounter for screening for malignant neoplasm of prostate VITAMIN B12 Routine 08/07/2024 12:00 AM EDT Essential (primary) hypertension Unspecified abdominal hernia without obstruction or gangrene Other prison (current) drug therapy Encounter for screening for malignant neoplasm of prostate COMPREHENSIVE METABOLIC PANEL Routine 08/07/2024 12:00 AM EDT Essential (primary) hypertension Unspecified abdominal hernia without obstruction or gangrene Other prison (current) drug therapy Encounter for screening for malignant neoplasm of prostate documented in this encounter Results * Urinalysis with reflex microscopic and culture (08/07/2024 12:00 AM EDT) [facility] Specific [place]ott Urine 1.010 1.003 - 1.030 LAB URINALYSIS - AUTOMATED METHOD 08/07/2024 7:53 PM [facility] pH, Urine 7.0 5.0 - 8.0 pH LAB URINALYSIS - AUTOMATED METHOD 08/07/2024 7:53 PM [facility] Leukocytes, Urine Negative Negative LAB URINALYSIS - AUTOMATED METHOD 08/07/2024 7:53 PM EDT [facility] Nitrite, Urine Negative Negative LAB URINALYSIS - AUTOMATED METHOD 08/07/2024 7:53 PM EDT [facility] Protein, Urine Negative <=Trace mg/dL LAB URINALYSIS - AUTOMATED METHOD [facility]07[facility]24 [facility] Glucose, Urine Negative Negative mg/dL LAB URINALYSIS - AUTOMATED METHOD 08/07/2024 7:[facility] Ketones, Urine Negative Negative mg/dL LAB URINALYSIS - AUTOMATED METHOD 08/07/2024 7:53 PM [facility] Urobilinogen, Urine 0.2 0.2 - 1.0 mg/dL LAB URINALYSIS - AUTOMATED METHOD 08/07/2024 7:53 PM [facility] Bilirubin, Urine Negative Negative LAB URINALYSIS - AUTOMATED METHOD 08/07/2024 7:53 [facility] Blood, Urine Negative Negative LAB URINALYSIS - AUTOMATED METHOD 08/07/2024 7:53 PM [facility] Urine Urine specimen obtained by clean catch procedure / Unknown 08/07/2024 08/07/2024 7:11 PM EDT Vikram AMARO LAB URINE ORDERABLES Final Res ult [facility] [address] [place] [address], * Stewart urine culture tube (08/07/2024 12:00 AM EDT) Extra Tube Hold for add-ons. 08/07/2024 9:01 PM EDT [facility] Comment:Auto resulted. Urine Urine specimen obtained by clean catch procedure / Unknown 08/07/2024 08/07/2024 7:05 PM EDT Vikram AMARO LAB URINE ORDERABLES Final Res ult Performing Organization Address [facility]/ZIP Co de Phone Number [facility] [address] [place] [address], [place] [phone] * Lavender tube (08/07/2024 12:00 AM EDT) Extra Tube Hold for add-ons. 08/07/2024 9:01 PM EDT [facility] Comment:Auto resulted. Blood Venous blood specimen / Unknown 08/07/2024 08/07/2024 7:05 PM EDT Vikram AMARO LAB BLOOD ORDERABLES Final Res ult Performing Organization Address [facility] Co de Phone Number [facility] [address] [place] [address], [place] [phone] * SST tube (08/07/2024 12:00 AM EDT) Extra Tube Hold for add-ons. 08/07/2024 9:01 PM EDT [facility] Comment:Auto resulted. Blood Venous blood specimen / Unknown 08/07/2024 08/07/2024 7:05 PM EDT Vikram AMARO LAB BLOOD ORDERABLES Final Res ult Performing Organization Address City/[facility]/ZIP Co de Phone Number [facility] [address] [place] [address], [place] [phone] * (ABNORMAL) CBC auto differential (08/07/2024 12:00 AM EDT) WBC 5.1 4.8 - 10.8 K/[facility] LAB HEMETOLOGY METHOD 08/07/2024 7:28 PM EDT [facility] RBC 4.80 4.50 - 5.50 M/mcL LAB HEMETOLOGY METHOD 08/07/2024 7:28 PM EDT [facility] Hemoglobin 14.1 13.5 - 17.5 g/dL LAB HEMETOLOGY METHOD 08/07/2024 7:28 PM [facility] Hematocrit 42.6 42.0 - 54.0 % LAB HEMETOLOGY METHOD 08/07/2024 7:28 PM [facility] MCV 89.5 79.0 - 98.0 FL LAB HEMETOLOGY METHOD 08/07/2024 7:28 [facility] MCH 29.6 27.0 - 32.0 pcg LAB HEMETOLOGY METHOD 08/07/2024 7:28 PM [facility] MCHC 33.1 32.0 - 37.0 g/dL LAB HEMETOLOGY METHOD 08/07/2024 7:28 PM [facility] RDW 12.7 11.0 - 15.0 % LAB HEMETOLOGY METHOD 08/07/2024 7:28 PM [facility] Platelets 162 130 - 400 K/mcL LAB HEMETOLOGY METHOD 08/07/2024 7:28 PM [facility] MPV 11.5(H) 7.0 - 11.0 FL LAB HEMETOLOGY METHOD 08/07/2024 7:28 PM [facility] NRBC 0.0 <1.0 % LAB HEMETOLOGY METHOD 08/07/2024 7:28 PM [facility] NRBC Absolute 0.00 <0.10 K/mcL LAB HEMETOLOGY METHOD 08/07/2024 7:28 PM [facility] Neutrophils Relative 48.3 % LAB HEMETOLOGY METHOD 08/07/2024 7:28 PM [facility] Lymphocytes Relative 36.5 % LAB HEMETOLOGY METHOD 08/07/2024 7:28 PM EDT [facility] Monocytes Relative 7.7 % LAB HEMETOLOGY METHOD 08/07/2024 7:28 PM EDT [facility] Eosinophils Relative 6.7 % LAB HEMETOLOGY METHOD 08/07/2024 7:28 [facility] Basophils Relative 0.6 % LAB HEMETOLOGY METHOD 08/07/2024 7:28 PM EDT [facility] Immature Granulocytes Relative 0.2 % LAB HEMETOLOGY METHOD 08/07/2024 7:28 PM EDT [facility] Neutrophils Absolute 2.45 1.50 - 7.00 K/mcL LAB HEMETOLOGY METHOD 08/07/2024 7:28 PM [facility] Lymphocytes Absolute 1.85 1.00 - 5.00 K/mcL LAB HEMETOLOGY METHOD 08/07/2024 7:28 PM EDT [facility] Monocytes Absolute 0.39 0.20 - 1.00 K/mcL LAB HEMETOLOGY METHOD 08/07/2024 7:28 PM EDT [facility] Eosinophils Absolute 0.34 0.00 - 0.50 K/mcL LAB HEMETOLOGY METHOD 08/07/2024 7:[facility] Basophils Absolute 0.03 0.00 - 0.20 K/mcL LAB HEMETOLOGY METHOD 08/07/2024 7:28 [facility] Immature Granulocytes Absolute 0.01 0.00 - 0.03 K/mcL LAB HEMETOLOGY METHOD 08/07/2024 7:28 PM EDT [facility] Blood Venous blood specimen / Unknown 08/07/2024 08/07/2024 7:05 PM EDT us Vikram AMARO LAB BLOOD ORDERABLES Final Res ult [facility] [address] [place] [address], [place] [phone] * Vitamin D 25 hydroxy (08/07/2024 12:00 AM EDT) Vit D, 25-Hydroxy 66.8 30.0 - 80.0 ng/mL LAB CHEMISTRY METHOD 08/07/2024 9:11 PM EDT [facility] Blood Venous blood specimen / Unknown 08/07/2024 08/07/2024 7:05 PM EDT us Vikram AMARO LAB BLOOD ORDERABLES Final Res ult [facility] [address] [place] [address], [place] [phone] * Thyroid stimulating hormone (08/07/2024 12:00 AM EDT) Pathologist [facility] TSH 1.14 0.40 - 4.00 mcIU/mL LAB CHEMISTRY METHOD 08/07/2024 9:50 PM EDT [facility] Blood Venous blood specimen / Unknown 08/07/2024 08/07/2024 7:05 PM EDT us Vikram AMARO LAB BLOOD ORDERABLES Final Res ult [facility] [address] [place] [address], [place] [phone] * Prostate specific antigen screen (08/07/2024 12:00 AM EDT) PSA 1.33 0.00 - 4.00 ng/mL LAB CHEMISTRY METHOD 08/07/2024 9:12 PM EDT [facility] Blood Venous blood specimen / Unknown 08/07/2024 08/07/2024 7:05 PM EDT Narrative [facility] - 08/07/2024 9:12 PM EDT The Siemens Advia Centaur Chemiluminescent Immunoassay is used. Results obtained with different assay methods or kits cannot be used interchangeably. Results cannot be interpreted as absolute evidence of the presence or absence of malignant disease. Vikram AMARO LAB BLOOD ORDERABLES Final Res ult Performing Organization Address [facility]/ZIP Co de Phone Number [facility] [address] [place] [address], [place] [phone] * Magnesium (08/07/2024 12:00 AM EDT) Magnesium 2.1 1.9 - 2.6 mg/dL LAB CHEMISTRY METHOD 08/07/2024 8:48 PM EDT [facility] Blood Venous blood specimen / Unknown 08/07/2024 08/07/2024 7:05 PM EDT Vikram AMARO LAB BLOOD ORDERABLES Final Res ult Performing Organization Address [facility] Co de Phone Number [facility] [address] [place] [address], [place] [phone] * (ABNORMAL) Hemoglobin A1c (08/07/2024 12:00 AM EDT) Hemoglobin A1C 6.5(H) <6.5 % LAB CHEMISTRY METHOD 08/07/2024 9:36 PM EDT [facility] Mean Bld Glu Estim. 140 mg/dL LAB CHEMISTRY METHOD 08/07/2024 9:36 PM EDT [facility] Blood Venous blood specimen / Unknown 08/07/2024 08/07/2024 7:05 PM EDT Vikram AMARO LAB BLOOD ORDERABLES Final Res ult Performing Organization Address [facility]/ZIP Co de Phone Number [facility] [address] [place] [address], [place] [phone] * Thyroxine free (08/07/2024 12:00 AM EDT) Free T4 1.20 0.70 - 1.80 ng/dL LAB CHEMISTRY METHOD 08/07/2024 9:11 PM EDT [facility] Blood Venous blood specimen / Unknown 08/07/2024 08/07/2024 7:05 PM EDT us Vikram AMARO LAB BLOOD ORDERABLES Final Res ult [facility] [address] [place] [address], * C-reactive protein (08/07/2024 12:00 AM EDT) [facility] C-Reactive Protein <0.29 <=0.50 mg/dL LAB CHEMISTRY METHOD 08/07/2024 8:48 PM EDT [facility] Blood Venous blood specimen / Unknown 08/07/2024 08/07/2024 7:05 PM EDT us Vikram AMARO LAB BLOOD ORDERABLES Final Res ult [facility] [address] [place] [address], [place] [phone] * (ABNORMAL) Vitamin B12 (08/07/2024 12:00 AM EDT) Pathologist [facility] Vitamin B-12 939(H) 250 - 900 pcg/mL LAB CHEMISTRY METHOD 08/07/2024 9:16 PM EDT [facility] Blood Venous blood specimen / Unknown 08/07/2024 08/07/2024 7:05 PM EDT us Vikram AMARO LAB BLOOD ORDERABLES Final Res ult [facility] [address] [place] [address], * (ABNORMAL) Drug abuse screen 8a panel, urine (08/07/2024 12:00 AM EDT) Amphetamine Screen, Ur Negative Negative LAB CHEMISTRY METHOD 5 8:55 PM EDT [facility] Comment:Certain OTC medicati ons containing ephedrine, phenylephrine, pseudoephedrine and phenylpropanolamine can cause false positive results. Barbiturate Screen, Ur Negative Negative LAB CHEMISTRY METHOD 5 8:55 PM EDT [facility] Benzodiazepine Screen, Ur Positive(A ) Negative LAB CHEMISTRY METHOD 5 8:55 PM EDT [facility] Cocaine Screen, Ur Negative Negative [facility] Opiate Screen, Ur Negative Negative LAB CHEMISTRY METHOD 5 8:55 PM [facility] Cannabinoid (THC) Screen, Ur Negative Negative LAB CHEMISTRY METHOD 5 8:55 PM T [facility] Comment:Specimens from patie nts taking pantoprazole sodium (Protonix) have been shown to produce false positive results. Oxycodone Screen, Ur Negative Negative LAB CHEMISTRY METHOD 5 8:55 PM EDT [facility] Fentanyl, Ur Negative Negative LAB CHEMISTRY METHOD 5 8:55 PM [facility] Urine Urine specimen obtained by clean catch procedure / Unknown 08/07/2024 08/07/2024 7:05 PM EDT Narrative [facility] - 08/07/2024 8:55 PM EDT [...] AMARO LAB URINE ORDERABLES Final Res ult [facility] [address] [place] [address], [place] [phone] * (ABNORMAL) Comprehensive metabolic panel (08/07/2024 12:00 AM EDT) Sodium 140 133 - 145 mmol/L LAB CHEMISTRY METHOD 08/07/2024 9:16 PM [facility] Potassium 4.1 3.5 - 5.5 mmol/L LAB CHEMISTRY METHOD 08/07/2024 9:16 PM [facility] Chloride 109 96 - 110 mmol/L LAB CHEMISTRY METHOD 08/07/2024 9:16 PM [facility] CO2 25 21 - 32 mmol/L LAB CHEMISTRY METHOD 08/07/2024 9:16 PM [facility] Anion Gap 6 3 - 11 LAB CHEMISTRY METHOD 08/07/2024 9:16 PM [facility] Glucose 103(H) 70 - 100 mg/dL LAB CHEMISTRY METHOD 08/07/2024 9:16 PM [facility] BUN 20 5 - 25 mg/dL LAB CHEMISTRY METHOD 08/07/2024 9:16 PM [facility] Creatinine 1.06 0.70 - 1.30 mg/dL LAB CHEMISTRY METHOD 08/07/2024 9:16 PM [facility] eGFR 73 >=60 mL/min/1. 73m2 LAB CHEMISTRY METHOD 08/07/2024 9:16 PM [facility] Comment:Calculation based on the Chronic Kidney Disease Epidemiology Collaboration (CKD-EPI) equation refit without adjustment for race. BUN/Creatinine Ratio 18.9 LAB CHEMISTRY METHOD 08/07/2024 9:16 PM [facility] Calcium 8.9 8.5 - 10.5 mg/dL LAB CHEMISTRY METHOD 08/07/2024 9:16 PM [facility] AST (SGOT) 20 10 - 42 unit/L LAB CHEMISTRY METHOD 08/07/2024 9:16 PM [facility] ALT (SGPT) 27 10 - 60 unit/L LAB CHEMISTRY METHOD 08/07/2024 9:16 PM [facility] Alkaline Phosphatase 58 42 - 121 unit/L LAB CHEMISTRY METHOD 08/07/2024 9:16 PM [facility] Total Protein 7.3 6.0 - 8.0 g/dL LAB CHEMISTRY METHOD 08/07/2024 9:16 PM [facility] Albumin 4.1 3.2 - 5.0 g/dL LAB CHEMISTRY METHOD 08/07/2024 9:16 PM [facility] Total Bilirubin 0.6 0.0 - 1.4 mg/dL LAB CHEMISTRY METHOD 08/07/2024 9:16 PM [facility] Blood Venous blood specimen / Unknown 08/07/2024 08/07/2024 7:05 PM EDT us Vikram AMARO LAB BLOOD ORDERABLES Final Res ult [facility] [address] [place] [address], [place] [phone] documented in this encounter Visit Diagnoses Diagnosis Essential (primary) hypertension Unspecified essential hypertension Unspecified abdominal hernia without obstruction or gangrene Other prison (current) drug therapy Encounter for screening for malignant neoplasm of prostate documented in this encounter Care Teams Acoustical Material Worker Relationship Specialty Start Date End Date Physician, Pcp Unknown PCP - General 08/08/24 documented as of this encounter
== END ==
LOC: HO.CARD 12:47
PROVIDERS: PCP Internal Medicine; Visit Provider Internal Medicine
DX: I49.3 Ventricular premature depolarization (principal); R00.2 Palpitations
CPT/HCPCS: 93242; 93306

== ENCOUNTER → 2024-11-14 12:50 | Outpatient (BNV) | payer OTHER, SELFPAY | PROVIDERS: PCP Internal Medicine; Visit Provider Internal Medicine Cardiovascular Disease | DX: I49.3 Ventricular premature depolarization (principal) | CPT/HCPCS: 93306 ==

== ENCOUNTER → 2024-12-03 09:46 | Outpatient (REF) | payer OTHER, SELFPAY ==
--- OUTSIDE RECORDS SUMMARY | 2003-08-25 14:45 | XMS_ITS | Continuity of Care Document ---
Author Organization [facility] Address [address] [place] [phone] Phone Care Team Providers Care Plexiglas Former Name Role Phone Unavailable Unavailable Unavailable Advance Directives Directive Yes / No Effective Date File Name No Information Encounters Encounter Description Practice Location Reason(s) For Visit Diagnoses Date Provider [facility], [address] [place] [address], [place], [place], [id number], [place] tel:[phone] [facility] No Information 2003 No Information Family History Family Member Type Diagnosis Age At Onset No Information Payers Payer name Insurance type Covered green party ID Authoriza tion(s) No Information Social History Type Description Quantity Date Captured Comments Sex Male Smoking Status No Information Chief Complaint And Reason For Visit No Information History Of Present Illness Encounter Date Complaint History Of Prese nt Illness No Information Instructions Date Instruction Additional Infor mation No Information Assessments Type Assessment Date No Information
--- NOTE | ~2024-12-03 | NM_ITS ---
EXERCISE MYOCARDIAL PERFUSION STUDY INDICATION: Premature ventricular contraction TECHNIQUE: The patient was brought in for an exercise perfusion study on 12/03/2024. Patient performed exercise as per Zeyad protocol and was injected 25 mCi of sestamibi once target heart rate was achieved. Images were obtained using the SPECT gamma camera interlaced with the gating device. Images were obtained in supine position. Patient refused to complete resting acquisition Images were processed with the software and compared side to side in short axis, horizontal long axis and vertical long axis views. FINDINGS: Raw aquisition reviewed. The stress perfusion study showed mildly diminished tracer uptake in the inferior wall. There is improvement with CT attenuation correction suggestive of diaphragmatic attenuation artifact. The gated study shows mildly reduced LV systolic function with calculated LVEF of 49%. LV cavity is normal in size. The gated study shows reduced inferior wall contractility in the basal portion. The findings are consistent with inferior perfusion defect, most prominent in base. Cannot distinguish ischemia versus artifactual. NM/NM delores perf SPECT rest or str IMPRESSION: 1. Myocardial perfusion imaging study shows inferior perfusion defect. Cannot distinguish ischemia versus infarct vs artifactual. Patient refused resting acquisition. 2. Gated LVEF is 49% during stress. EKG component of the test reported separately. Electronically signed by: Kevin Oglesby MD 12/05/2024 03:57 PM EDT
--- NOTE | 2024-12-03 09:49 | CA_ITS ---
Acquisition Time: 2024-12-03 10:07:35 Total Exercise Time: 00:05:05 Test Indications: PVC'S,Palpitations HTN Medications: ALPRAZOLAM LISINOPRIL Protocol: GINI Max HR: 151 BPM 105% of Pred: 143 BPM Max BP: 210/100 mmHG Max Work Load: 4.6 METS Exercise stress test with exercise 5 mins 5 secs of Gini Protocol held at Stage 1, achieving 105% MPHR, with reports of 4/10 chest pressure and SOB, with isolated PACs adn frequent PVCs, with vent couplets, with hypertensive response to exercise- max BP at 210/100. Without any EKG changes meeting criteria for ischemia. In recovery, chest pressure resolved and breathing returned to baseline. BP improved to 128/90. Nuclear images pending.Test reviewed with Dr. Arora. Referred By: Kevin Oglesby Electronically Signed By: Bobby Silva
--- OUTSIDE RECORDS SUMMARY | 2024-12-03 10:53 | XMS_ITS | Encounter Summary ---
Author Organization [facility] Address [address] [facility] [address] [place] [id number] Phone Care Team Providers Care Grill Cook Name Role Phone Dorian Villalobos MD Unavailable [phone] Vladimir Jones MD Unavailable [phone] Karen Love MD Primary Care Provide r Roger Benedict MD Primary Care Provider + Encounter Details Date Type Department Care Team (Latest Contact Info) Description 06/17/2020 Transcribe Orders [facility] Laboratory [address] [place] [address] Karen Love MD [address] [place] [address] Essential hypertension, malignant (Primary Dx); Anxiety hyperventilation [...] 12:40 PM EDT Luz Lin RN * [place] Suicide Severity Rating Scale (Screener/Recent Self-Report) Question [...] URINE MICROALBUMIN <1.2 0 - 2.3 mg/dL [facility] URINE CREATININE 61 mg/dL [facility] MICROALB/CRE RATIO NOT CALCULATED 0 - 20 mg/g Cre [facility] Comment:due to Microalbumin <1.2 Urine (Urine) 06/17/2020 2:2 4 PM EDT 06/17/2020 2:30 PM EDT us Karen Love MD URINE ORDERABLES Мария l Result Performing Organization Address [facility]/ZIP Co de Phone Number [address] [address] * (ABNORMAL) Hemoglobin A1c (06/17/2020 2:24 PM EDT) HEMOGLOBIN A1C 6.1(H) 4.3 - 5.8 % [facility] Blood 06/17/2020 2:24 PM EDT 06/17/2020 2:29 PM EDT us Karen Love MD LAB BLOOD ORDERABLES Final Result Performing Organization Address City/[facility]/ZIP Co de Phone Number [address] [phone] * TSH with reflex (06/17/2020 2:24 PM EDT) TSH 1.14 0.27 - 4.20 uIU/mL [facility] Blood 06/17/2020 2:24 PM EDT 06/17/2020 2:29 PM EDT Kraen Love MD LAB BLOOD ORDERABLES Final Result [address] [address] * PSA (screening) (06/17/2020 2:24 PM EDT) PSA 1.57 0 - 4.00 ng/mL [facility] Blood 06/17/2020 2:24 PM EDT 06/17/2020 2:30 PM EDT Karen Love MD LAB BLOOD ORDERABLES Final Result Performing Organization Address City/[facility]/ZIP Co de Phone Number [address] [address] * (ABNORMAL) Lipid panel (06/17/2020 2:24 PM EDT) HDL 59 mg/dL [facility] Comment: Interpretation <40 mg/dL: Low HDL cholesterol (major risk factor for CHD) Greater than or equal to 60 mg/dL: High HDL cholesterol ( negative risk factor for CHD) HDL - cholesterol is affected by a number of factors, e.g. smoking, excerise, hormones, sex and age. CHOLESTEROL 196 0 - 240 mg/dL [facility] TRIGLYCERIDES 106 30 - 160 mg/dL [facility] LDL 116 50 - 129 mg/dL [facility] Comment: LDL levels in terms of risk for coronary heart disease: <100 mg/dL: Optimal 100-129 mg/dL: Near or above optimal 130-159 mg/dL: Borderline high 160-189 mg/dL: High >190 mg/dL: Very High CARDIAC RISK RATIO 3.3(L) 3.4 - 5.0 [facility] Blood 06/17/2020 2:24 PM EDT 06/17/2020 2:29 PM EDT us Karen Love MD LAB BLOOD ORDERABLES Final Result Performing Organization Address City/[facility] Co de Phone Number [address] [address] * (ABNORMAL) Comprehensive metabolic panel (06/17/2020 2:24 PM EDT) SODIUM 140 133 - 146 mmol/L [facility] POTASSIUM 4.7 3.3 - 5.1 mmol/L [facility] CHLORIDE 104 96 - 108 mmol/L [facility] CO2 27 21 - 35 mmol/L [facility] BUN 19 6 - 19 mg/dL [facility] CREATININE 0.90 0.5 - 1.5 mg/dL [facility] GLUCOSE 105(H) 70 - 99 mg/dL [facility] ALBUMIN 4.6 3.9 - 4.8 g/dL [facility] TOTAL PROTEIN 7.4 6.5 - 8.0 g/dL [facility] CALCIUM 9.5 8.4 - 10.3 mg/dL [facility] ALKALINE PHOSPHATASE 52 39 - 117 U/L [facility] TOTAL BILIRUBIN 0.4 0.0 - 1.2 mg/dL [facility] AST 24 0 - 37 U/L [facility] ALT 20 0 - 40 U/L [facility] GLOBULIN 2.8 1 - 4.8 g/dL [facility] EGFR 85 >59 mL/min/1.7 3m2 [facility] Comment:Estimated glomerular filtration rate calculated using the CKD-EPI equation. ANION GAP 14 10 - 20 mmol/L [facility] Blood 06/17/2020 2:24 PM EDT 06/17/2020 2:29 PM EDT us Karen Love MD LAB BLOOD ORDERABLES Final Result [facility] [address] [place] [address] * CBC and differential (06/17/2020 2:24 PM EDT) WBC 4.71 4.00 - 11.00 K/uL [facility] RBC 4.70 3.90 - 5.69 M/uL [facility] HGB 14.4 12.4 - 17.3 g/dL [facility] HCT 42.0 37.0 - 51.0 % [facility] PLT 154 140 - 430 K/uL [facility] MCV 89.4 78.0 - 97.0 fL [facility] MCH 30.6 25.0 - 33.0 pg [facility] MCHC 34.3 32.0 - 36.0 g/dL [facility] RDW 12.1 11.0 - 15.0 % [facility] MPV 11.3 8.4 - 12.8 fl [facility] NRBC 0.00 0 /100 WBCs [facility] ABSOLUTE NRBC 0.00 0 K/uL [facility] DIFF METHOD Auto [facility] NEUTS 50.2 43.0 - 75.0 % [facility] LYMPHS 33.5 18.2 - 47.4 % [facility] MONOS 7.6 4.00 - 11.00 % [facility] EOS 7.4 0.0 - 8.0 % [facility] BASOS 1.1 0.0 - 2.0 % [facility] Granulocytes, immature (%) 0.2 0.0 - 0.9 % [facility] ABSOLUTE NEUTS 2.36 1.80 - 7.70 K/uL [facility] ABSOLUTE LYMPHS 1.58 1.00 - 3.10 K/uL [facility] ABSOLUTE MONOS 0.36 0.20 - 0.80 K/uL [facility] ABSOLUTE EOS 0.35 0.00 - 0.80 K/uL [facility] ABSOLUTE BASOS 0.05 0.00 - 0.09 K/uL [facility] Granulocytes, immature 0.01 0.00 - 0.05 K/uL [facility] Blood 06/17/2020 2:24 PM EDT 06/17/2020 2:29 PM EDT Karen Love MD LAB BLOOD ORDERABLES Final Result [facility] [address] [place] [address] documented in this encounter Visit Diagnoses Diagnosis Essential hypertension, malignant- Primary Anxiety hyperventilation Respiratory malfunction arising from mental factors documented in this encounter Care Teams Grill Cook Relationship Specialty Start Date End Date Karen Love MD [address] [place] [address] PCP - General Internal Medicine 05/29/20 12/21/21 Roger Benedict MD [address] [place] [id number] PCP - General Internal Medicine 12/22/21 Dorian Villalobos MD [address] [place] [address] [address] [place] [address] [email or web address] Historical LMR Provider 01/18/17 04/10/21 Vladimir Jones MD [address] [place] [id number] Historical LMR Provider 01/18/17 documented as of this encounter Additional Source Comments The information contained in this document represents components of the legal health record. It is not the complete legal health record.[facility]
--- OUTSIDE RECORDS SUMMARY | 2024-12-03 10:54 | XMS_ITS | Encounter Summary ---
Author Organization [facility] Address [address] [place] [address] Care Team Providers Care Papier Mache Molder Name Role Phone Physician, Pcp Unknown Primary Care Provider Susan vailable Encounter Details Date Type Department Care Team (Late st Contact Info) Description 08/07/2024 Lab Requisition [facility] - Main Lab [address] [facility] [place] [address] Vikram Soto PA [address] [facility] [address] [place], [place] [address] Essential (primary) hypertension; Unspecified abdominal hernia without obstruction or gangrene; Other half-way (current) drug therapy; Encounter for screening for [...] abdominal hernia without obstruction or gangrene Other half-way (current) drug therapy Encounter for screening for malignant neoplasm of prostate URINALYSIS WITH REFLEX MICROSCOPIC AND CULTURE Routine 08/07/2024 12:00 AM EDT Essential (primary) hypertension Unspecified abdominal hernia without obstruction or gangrene 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 Encounter for screening for malignant neoplasm of prostate STEWART URINE CULTURE TUBE Routine 08/07/2024 12:00 AM EDT Essential (primary) hypertension Unspecified abdominal hernia without obstruction or gangrene Other half-way (current) drug therapy Encounter for screening for malignant neoplasm of prostate SST - GOLD Routine 08/07/2024 12:00 AM EDT Essential (primary) hypertension Unspecified abdominal hernia without obstruction or gangrene Other half-way (current) drug therapy Encounter for screening for malignant neoplasm of prostate DRUG ABUSE SCREEN 8A PANEL, URINE Routine 08/07/2024 12:00 AM EDT Essential (primary) hypertension Unspecified abdominal hernia without obstruction or gangrene 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 Encounter for screening for malignant neoplasm of prostate CBC WITH AUTO DIFFERENTIAL Routine 08/07/2024 12:00 AM EDT Essential (primary) hypertension Unspecified abdominal hernia without obstruction or gangrene Other half-way (current) drug therapy Encounter for screening for malignant neoplasm of prostate LAVENDER - EDTA Routine 08/07/2024 12:00 AM EDT Essential (primary) hypertension Unspecified abdominal hernia without obstruction or gangrene 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 Encounter for screening for malignant neoplasm of prostate VITAMIN D 25 HYDROXY Routine 08/07/2024 12:00 AM EDT Essential (primary) hypertension Unspecified abdominal hernia without obstruction or gangrene 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 Encounter for screening for malignant neoplasm of prostate URINALYSIS WITH REFLEX MICROSCOPIC AND CULTURE Routine 08/07/2024 12:00 AM EDT Essential (primary) hypertension Unspecified abdominal hernia without obstruction or gangrene 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 Encounter for screening for malignant neoplasm of prostate CBC AND DIFFERENTIAL Routine 08/07/2024 12:00 AM EDT Essential (primary) hypertension Unspecified abdominal hernia without obstruction or gangrene 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 Encounter for screening for malignant neoplasm of prostate C-REACTIVE PROTEIN Routine 08/07/2024 12 :00 AM EDT Essential (primary) hypertension Unspecified abdominal hernia without obstruction or gangrene 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 Encounter for screening for malignant neoplasm of prostate THYROID STIMULATING HORMONE Routine 08/07/2024 12:00 AM EDT Essential (primary) hypertension Unspecified abdominal hernia without obstruction or gangrene Other half-way (current) drug therapy Encounter for screening for malignant neoplasm of prostate THYROXINE FREE Routine 08/07/2024 12:00 AM EDT Essential (primary) hypertension Unspecified abdominal hernia without obstruction or gangrene 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 Encounter for screening for malignant neoplasm of prostate MAGNESIUM Routine 08/07/2024 12:00 AM EDT Essential (primary) hypertension Unspecified abdominal hernia without obstruction or gangrene 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 Encounter for screening for malignant neoplasm of prostate HEMOGLOBIN A1C Routine 08/07/2024 12:00 AM EDT Essential (primary) hypertension Unspecified abdominal hernia without obstruction or gangrene Other half-way (current) drug therapy Encounter for screening for malignant neoplasm of prostate VITAMIN B12 Routine 08/07/2024 12:00 AM EDT Essential (primary) hypertension Unspecified abdominal hernia without obstruction or gangrene Other half-way (current) drug therapy Encounter for screening for malignant neoplasm of prostate COMPREHENSIVE METABOLIC PANEL Routine 08/07/2024 12:00 AM EDT Essential (primary) hypertension Unspecified abdominal hernia without obstruction or gangrene Other half-way (current) drug therapy Encounter for screening for malignant neoplasm of prostate documented in this encounter Results * Urinalysis with reflex microscopic and culture (08/07/2024 12:00 AM EDT) [facility] Specific [place] Urine 1.010 1.003 - 1.030 LAB URINALYSIS - AUTOMATED METHOD 08/07/2024 7:53 PM [facility] pH, Urine 7.0 5.0 - 8.0 pH LAB URINALYSIS - AUTOMATED METHOD 08/07/2024 7:53 PM [facility] Leukocytes, Urine Negative Negative LAB URINALYSIS - AUTOMATED METHOD 08/07/2024 7:53 PM EDT [facility] Nitrite, Urine Negative Negative LAB URINALYSIS - AUTOMATED METHOD 08/07/2024 7:53 PM EDT [facility] Protein, Urine Negative <=Trace mg/dL LAB URINALYSIS - AUTOMATED METHOD [facility]/07[facility]2024 7:[facility] Glucose, Urine Negative Negative mg/dL LAB URINALYSIS - AUTOMATED METHOD 08/07/2024 7:53 [facility] Ketones, Urine Negative Negative mg/dL LAB URINALYSIS - AUTOMATED METHOD 08/07/2024 7:53 PM [facility] Urobilinogen, Urine 0.2 0.2 - 1.0 mg/dL LAB URINALYSIS - AUTOMATED METHOD 08/07/2024 7:53 PM [facility] Bilirubin, Urine Negative Negative LAB URINALYSIS - AUTOMATED METHOD 08/07/2024 7:53 PM [facility] Blood, Urine Negative Negative LAB URINALYSIS - AUTOMATED METHOD 08/07/2024 7:53 PM [facility] Urine Urine specimen obtained by clean catch procedure / Unknown 08/07/2024 08/07/2024 7:11 PM EDT Vikram AMARO LAB URINE ORDERABLES Final Res ult [facility] [address] [place] [address], * Stewart urine culture tube (08/07/2024 12:00 AM EDT) Extra Tube Hold for add-ons. 08/07/2024 9:01 PM EDT [facility] Comment:Auto resulted. Urine Urine specimen obtained by clean catch procedure / Unknown 08/07/2024 08/07/2024 7:05 PM EDT Vikram AMARO LAB URINE ORDERABLES Final Res ult Performing Organization Address [facility]/ZIP Co de Phone Number [facility] [address] [place] [address], [place] [phone] * Lavender tube (08/07/2024 12:00 AM EDT) Extra Tube Hold for add-ons. 08/07/2024 9:01 PM EDT [facility] Comment:Auto resulted. Blood Venous blood specimen / Unknown 08/07/2024 08/07/2024 7:05 PM EDT Vikram AMARO LAB BLOOD ORDERABLES Final Res ult Performing Organization Address [facility] Co de Phone Number [facility] [address] [place] [address], [place] [phone] * SST tube (08/07/2024 12:00 AM EDT) Extra Tube Hold for add-ons. 08/07/2024 9:01 PM EDT [facility] Comment:Auto resulted. Blood Venous blood specimen / Unknown 08/07/2024 08/07/2024 7:05 PM EDT Vikram AMARO LAB BLOOD ORDERABLES Final Res ult Performing Organization Address City/[facility]/ZIP Co de Phone Number [facility] [address] [place] [address], [place] [phone] * (ABNORMAL) CBC auto differential (08/07/2024 12:00 AM EDT) WBC 5.1 4.8 - 10.8 K/[facility] LAB HEMETOLOGY METHOD 08/07/2024 7:28 PM EDT [facility] RBC 4.80 4.50 - 5.50 M/mcL LAB HEMETOLOGY METHOD 08/07/2024 7:28 PM EDT [facility] Hemoglobin 14.1 13.5 - 17.5 g/dL LAB HEMETOLOGY METHOD 08/07/2024 7:28 PM [facility] Hematocrit 42.6 42.0 - 54.0 % LAB HEMETOLOGY METHOD 08/07/2024 7:28 PM [facility] MCV 89.5 79.0 - 98.0 FL LAB HEMETOLOGY METHOD 08/07/2024 7:28 PM [facility] MCH 29.6 27.0 - 32.0 pcg LAB HEMETOLOGY METHOD 08/07/2024 7:28 PM [facility] MCHC 33.1 32.0 - 37.0 g/dL LAB HEMETOLOGY METHOD 08/07/2024 7:28 PM [facility] RDW 12.7 11.0 - 15.0 % LAB HEMETOLOGY METHOD 08/07/2024 7:28 PM [facility] Platelets 162 130 - 400 K/mcL LAB HEMETOLOGY METHOD 08/07/2024 7:28 PM [facility] MPV 11.5(H) 7.0 - 11.0 FL LAB HEMETOLOGY METHOD 08/07/2024 7:28 PM [facility] NRBC 0.0 <1.0 % LAB HEMETOLOGY METHOD 08/07/2024 7:28 PM [facility] NRBC Absolute 0.00 <0.10 K/mcL LAB HEMETOLOGY METHOD 08/07/2024 7:28 PM [facility] Neutrophils Relative 48.3 % LAB HEMETOLOGY METHOD 08/07/2024 7:28 PM [facility] Lymphocytes Relative 36.5 % LAB HEMETOLOGY METHOD 08/07/2024 7:28 PM EDT [facility] Monocytes Relative 7.7 % LAB HEMETOLOGY METHOD 08/07/2024 7:28 PM EDT [facility] Eosinophils Relative 6.7 % LAB HEMETOLOGY METHOD 08/07/2024 7:28 PM [facility] Basophils Relative 0.6 % LAB HEMETOLOGY METHOD 08/07/2024 7:28 PM EDT [facility] Immature Granulocytes Relative 0.2 % LAB HEMETOLOGY METHOD 08/07/2024 7:28 PM EDT [facility] Neutrophils Absolute 2.45 1.50 - 7.00 K/mcL LAB HEMETOLOGY METHOD 08/07/2024 7:28 PM [facility] Lymphocytes Absolute 1.85 1.00 - 5.00 K/mcL LAB HEMETOLOGY METHOD 08/07/2024 7:28 PM EDT [facility] Monocytes Absolute 0.39 0.20 - 1.00 K/mcL LAB HEMETOLOGY METHOD 08/07/2024 7:28 PM EDT [facility] Eosinophils Absolute 0.34 0.00 - 0.50 K/mcL LAB HEMETOLOGY METHOD 08/07/2024 7:28 PM [facility] Basophils Absolute 0.03 0.00 - 0.20 K/mcL LAB HEMETOLOGY METHOD 08/07/2024 7:28 PM [facility] Immature Granulocytes Absolute 0.01 0.00 - 0.03 K/mcL LAB HEMETOLOGY METHOD 08/07/2024 7:28 PM EDT [facility] Blood Venous blood specimen / Unknown 08/07/2024 08/07/2024 7:05 PM EDT us Vikram AMARO LAB BLOOD ORDERABLES Final Res ult [facility] [address] [place] [address], [place] [phone] * Vitamin D 25 hydroxy (08/07/2024 12:00 AM EDT) Vit D, 25-Hydroxy 66.8 30.0 - 80.0 ng/mL LAB CHEMISTRY METHOD 08/07/2024 9:11 PM EDT [facility] Blood Venous blood specimen / Unknown 08/07/2024 08/07/2024 7:05 PM EDT us Vikram AMARO LAB BLOOD ORDERABLES Final Res ult [facility] [address] [place] [address], [place] [phone] * Thyroid stimulating hormone (08/07/2024 12:00 AM EDT) Pathologist [facility] TSH 1.14 0.40 - 4.00 mcIU/mL LAB CHEMISTRY METHOD 08/07/2024 9:50 PM EDT [facility] Blood Venous blood specimen / Unknown 08/07/2024 08/07/2024 7:05 PM EDT us Vikram AMARO LAB BLOOD ORDERABLES Final Res ult [facility] [address] [place] [address], [place] [phone] * Prostate specific antigen screen (08/07/2024 12:00 AM EDT) PSA 1.33 0.00 - 4.00 ng/mL LAB CHEMISTRY METHOD 08/07/2024 9:12 PM EDT [facility] Blood Venous blood specimen / Unknown 08/07/2024 08/07/2024 7:05 PM EDT Narrative [facility] - 08/07/2024 9:12 PM EDT The Siemens Advia Centaur Chemiluminescent Immunoassay is used. Results obtained with different assay methods or kits cannot be used interchangeably. Results cannot be interpreted as absolute evidence of the presence or absence of malignant disease. Vikram AMARO LAB BLOOD ORDERABLES Final Res ult Performing Organization Address [facility]/ZIP Co de Phone Number [facility] [address] [place] [address], [place] [phone] * Magnesium (08/07/2024 12:00 AM EDT) Magnesium 2.1 1.9 - 2.6 mg/dL LAB CHEMISTRY METHOD 08/07/2024 8:48 PM EDT [facility] Blood Venous blood specimen / Unknown 08/07/2024 08/07/2024 7:05 PM EDT Vikram AMARO LAB BLOOD ORDERABLES Final Res ult Performing Organization Address [facility] Co de Phone Number [facility] [address] [place] [address], [place] [phone] * (ABNORMAL) Hemoglobin A1c (08/07/2024 12:00 AM EDT) Hemoglobin A1C 6.5(H) <6.5 % LAB CHEMISTRY METHOD 08/07/2024 9:36 PM EDT [facility] Mean Bld Glu Estim. 140 mg/dL LAB CHEMISTRY METHOD 08/07/2024 9:36 PM EDT [facility] Blood Venous blood specimen / Unknown 08/07/2024 08/07/2024 7:05 PM EDT Vikram AMARO LAB BLOOD ORDERABLES Final Res ult Performing Organization Address [facility]/ZIP Co de Phone Number [facility] [address] [place] [address], [place] [phone] * Thyroxine free (08/07/2024 12:00 AM EDT) Free T4 1.20 0.70 - 1.80 ng/dL LAB CHEMISTRY METHOD 08/07/2024 9:11 PM EDT [facility] Blood Venous blood specimen / Unknown 08/07/2024 08/07/2024 7:05 PM EDT us Vikram AMARO LAB BLOOD ORDERABLES Final Res ult [facility] [address] [place] [address], * C-reactive protein (08/07/2024 12:00 AM EDT) [facility] C-Reactive Protein <0.29 <=0.50 mg/dL LAB CHEMISTRY METHOD 08/07/2024 8:48 PM EDT [facility] Blood Venous blood specimen / Unknown 08/07/2024 08/07/2024 7:05 PM EDT us Vikram AMARO LAB BLOOD ORDERABLES Final Res ult [facility] [address] [place] [address], [place] [phone] * (ABNORMAL) Vitamin B12 (08/07/2024 12:00 AM EDT) Pathologist [facility] Vitamin B-12 939(H) 250 - 900 pcg/mL LAB CHEMISTRY METHOD 08/07/2024 9:16 PM EDT [facility] Blood Venous blood specimen / Unknown 08/07/2024 08/07/2024 7:05 PM EDT us Vikram AMARO LAB BLOOD ORDERABLES Final Res ult [facility] [address] [place] [address], * (ABNORMAL) Drug abuse screen 8a panel, urine (08/07/2024 12:00 AM EDT) Amphetamine Screen, Ur Negative Negative LAB CHEMISTRY METHOD 5 8:55 PM EDT [facility] Comment:Certain OTC medicati ons containing ephedrine, phenylephrine, pseudoephedrine and phenylpropanolamine can cause false positive results. Barbiturate Screen, Ur Negative Negative LAB CHEMISTRY METHOD 5 8:55 PM EDT [facility] Benzodiazepine Screen, Ur Positive(A ) Negative LAB CHEMISTRY METHOD 5 8:55 PM EDT [facility] Cocaine Screen, Ur Negative Negative [facility]STR[facility] 5 8:[facility] Opiate Screen, Ur Negative Negative LAB CHEMISTRY METHOD 5 8:55 PM [facility] Cannabinoid (THC) Screen, Ur Negative Negative LAB CHEMISTRY METHOD 5 8:55 PM T [facility] Comment:Specimens from patie nts taking pantoprazole sodium (Protonix) have been shown to produce false positive results. Oxycodone Screen, Ur Negative Negative LAB CHEMISTRY METHOD 5 8:55 PM EDT [facility] Fentanyl, Ur Negative Negative LAB CHEMISTRY METHOD 5 8:55 PM [facility] Urine Urine specimen obtained by clean catch procedure / Unknown 08/07/2024 08/07/2024 7:05 PM EDT Narrative [facility] - 08/07/2024 8:55 PM EDT [...] AMARO LAB URINE ORDERABLES Final Res ult [facility] [address] [place] [address], [place] [phone] * (ABNORMAL) Comprehensive metabolic panel (08/07/2024 12:00 AM EDT) Sodium 140 133 - 145 mmol/L LAB CHEMISTRY METHOD 08/07/2024 9:16 PM [facility] Potassium 4.1 3.5 - 5.5 mmol/L LAB CHEMISTRY METHOD 08/07/2024 9:16 PM [facility] Chloride 109 96 - 110 mmol/L LAB CHEMISTRY METHOD 08/07/2024 9:16 PM [facility] CO2 25 21 - 32 mmol/L LAB CHEMISTRY METHOD 08/07/2024 9:16 PM [facility] Anion Gap 6 3 - 11 LAB CHEMISTRY METHOD 08/07/2024 9:16 PM [facility] Glucose 103(H) 70 - 100 mg/dL LAB CHEMISTRY METHOD 08/07/2024 9:16 PM [facility] BUN 20 5 - 25 mg/dL LAB CHEMISTRY METHOD 08/07/2024 9:16 PM [facility] Creatinine 1.06 0.70 - 1.30 mg/dL LAB CHEMISTRY METHOD 08/07/2024 9:16 PM [facility] eGFR 73 >=60 mL/min/1. 73m2 LAB CHEMISTRY METHOD 08/07/2024 9:16 PM [facility] Comment:Calculation based on the Chronic Kidney Disease Epidemiology Collaboration (CKD-EPI) equation refit without adjustment for race. BUN/Creatinine Ratio 18.9 LAB CHEMISTRY METHOD 08/07/2024 9:16 PM [facility] Calcium 8.9 8.5 - 10.5 mg/dL LAB CHEMISTRY METHOD 08/07/2024 9:16 PM [facility] AST (SGOT) 20 10 - 42 unit/L LAB CHEMISTRY METHOD 08/07/2024 9:16 PM [facility] ALT (SGPT) 27 10 - 60 unit/L LAB CHEMISTRY METHOD 08/07/2024 9:16 PM [facility] Alkaline Phosphatase 58 42 - 121 unit/L LAB CHEMISTRY METHOD 08/07/2024 9:16 PM [facility] Total Protein 7.3 6.0 - 8.0 g/dL LAB CHEMISTRY METHOD 08/07/2024 9:16 PM [facility] Albumin 4.1 3.2 - 5.0 g/dL LAB CHEMISTRY METHOD 08/07/2024 9:16 PM [facility] Total Bilirubin 0.6 0.0 - 1.4 mg/dL LAB CHEMISTRY METHOD 08/07/2024 9:16 PM [facility] Blood Venous blood specimen / Unknown 08/07/2024 08/07/2024 7:05 PM EDT us Vikram MAARO LAB BLOOD ORDERABLES Final Res ult [facility] [address] [place] [address], [place] [phone] documented in this encounter Visit Diagnoses Diagnosis Essential (primary) hypertension Unspecified essential hypertension Unspecified abdominal hernia without obstruction or gangrene Other half-way (current) drug therapy Encounter for screening for malignant neoplasm of prostate documented in this encounter Care Teams Papier Mache Molder Relationship Specialty Start Date End Date Physician, Pcp Unknown PCP - General 08/08/24 documented as of this encounter
--- OUTSIDE RECORDS SUMMARY | 2024-12-03 10:54 | XMS_ITS | Encounter Summary ---
Author Organization [facility] Address [address] [facility] [address] [place] [address] Phone Care Team Providers Care Charging Car Operator Name Role Phone Dorian Villalobos MD Unavailable [phone] Vladimir Jones MD Unavailable [phone] Karen Love MD Primary Care Provide r Roger Benedict MD Primary Care Provider + Encounter Details Date Type Department Care Team (Late st Contact Info) Description 08/01/2020 Procedure Pass [facility], Ct Scan - [address] [address] Social History Tobacco Use Types Packs/Day Years [...] Date of Assessment Author No Risk Indicated 08/01/2020 2:11 PM EDT Anna Addison, KAYY * [place] Suicide Severity Rating Scale (Screener/Recent Self-Report) Question Answer Date of Assessment Author 1. Wish to be (Past 1 Month) No 021 2:11 PM EDT Anna Addison, RN 2. Non-Specific Active Suici cory Thoughts (Past 1 Month) No 08/01/2020 2:11 PM EDT Carlin Addison, RN 6. Suicidal Behavior (Lifetime) No 2:11 PM EDT Anna Addison, RN documented as of this encounter Plan of Treatment Not on file documented as of this encounter Visit Diagnoses Not on filedocumented in this encounter Care Teams Charging Car Operator Relationship Specialty Start Date End Date Karen Love MD [address] [place] [address] PCP - General Internal Medicine 05/29/20 12/21/21 Roger Benedict MD [address] [place] [id number] PCP - General Internal Medicine 12/22/21 Dorian Villalobos MD [address] [place] [address] [place] [id number] [email or web address] Historical LMR Provider 01/18/17 04/10/21 Vladimir Jones MD [address] [place] [id number] Historical LMR Provider 01/18/17 documented as of this encounter Additional Source Comments The information contained in this document represents components of the legal health record. It is not the complete legal health record.[facility]
--- OUTSIDE RECORDS SUMMARY | 2024-12-03 10:54 | XMS_ITS | Encounter Summary ---
Author Organization [employer] Address [address] [facility] [address] [place] [address] Care Team Providers Care Ed Teacher Name Role Phone Kd Eaton DMD Unavailable Reason for Visit * Reason Onset Date Comments emergency dental insurance 03/22/2024 Encounter Details Date Type Department Care Team (Late Contact Info) Description 03/22/[address] [facility] [address] [place] [address] Kd Eaton DMD [address] [place] [address] emergency dental insurance Social History Tobacco Use [...] Description 01/27/2025 1:00 PM EDT Office Visit [facility] [address] [place] [address] Maribel Blanco documented as of this encounter Visit Diagnoses Not on filedocumented in this encounter Care Teams Ed Teacher Relationship Specialty Start Date End Date Kd Eaton DMD [address] [place] [address] Dental Painter Apprentice 04/01/24 documented as of this encounter
--- OUTSIDE RECORDS SUMMARY | 2024-12-03 10:54 | XMS_ITS | Encounter Summary ---
Author Organization [facility] Address [address] [place] [address] [place] [address] Phone Care Team Providers Care Sleeping Bag Filler Name Role Phone Vladimir Jones MD Primary Care Provider [phone] Dorian Villalobos MD Unavailable [phone] Vladimir Jones MD Unavailable [phone] Karen Love MD Primary Care Provide r Roger Benedict MD Primary Care Provider + Encounter Details Date Type Department Care Team (Late st Contact Info) Description 08/29/2017 Transcribe Orders [facility] Laboratory [address] [place] [address] Vladimir Jones MD [address] [place] [address] [place], [place] [phone] Hypertension, unspecified type (Primary Dx); Elevated cholesterol; Fatigue, unspecified type Social History Tobacco Use Types Packs/Day Years Used Date Smoking Tobacco: Never Assessed Sex and Gender Information Value Date Recorded Sex Assigned at Male 05/14/2020 12:12 PM EST Legal Sex Male 6:52 PM EST Gender Identity Male 05/14/2020 12:12 PM EST Sexual Orientation Something else 05/29/2020 4: 19 PM EST documented as of this encounter Plan of Treatment Not on file documented as of this encounter Results * Magnesium (08/29/2017 2:27 PM EDT) Pathologist [facility] MAGNESIUM 1.8 1.6 - 2.6 mg/dL [facility] Blood 08/29/2017 2:27 PM EDT 08/29/2017 2:31 PM EDT us Vladimir Jones MD LAB BLOOD ORDERABLES Final Res ult Performing Organization Address [facility]/ZIP Co de Phone Number [address] [address] * TSH (08/29/2017 2:27 PM EDT) [facility] TSH 1.38 0.27 - 4.20 uIU/mL [facility] Blood 08/29/2017 2:27 PM EDT 08/29/2017 2:31 PM EDT us Vladimir Jones MD LAB BLOOD ORDERABLES Final Res ult Performing Organization Address [facility]/ZIP Co de Phone Number [address] [address] * T4, total (08/29/2017 2:27 PM EDT) [facility] THYROXINE 6.6 4.6 - 12.0 ug/dL [facility] Blood 08/29/2017 2:27 PM EDT 08/29/2017 2:31 PM EDT us Vladimir Jones MD LAB BLOOD ORDERABLES Final Res ult Performing Organization Address [facility]/ZIP Co de Phone Number [address] [address] * (ABNORMAL) Lipid panel (08/29/2017 2:27 PM EDT) [facility] HDL 64 mg/dL [facility] Comment: Interpretation: Risk Level Males Decreased >45 mg/dL Average 40-45 mg/dL Increased <40 mg/dL CHOLESTEROL 178 0 - 240 mg/dL [facility] TRIGLYCERIDES 98 30 - 160 mg/dL [facility] LDL 94 50 - 129 mg/dL [facility] Comment: LDL levels in terms of risk for coronary heart disease: <100 mg/dL: Optimal 100-129 mg/dL: Near or above optimal 130-159 mg/dL: Borderline high 160-189 mg/dL: High >190 mg/dL: Very High CARDIAC RISK RATIO 2.8(L) 3.4 - 5.0 [facility] Blood 08/29/2017 2:27 PM EDT 08/29/2017 2:31 PM EDT us Vladimir Jones MD LAB BLOOD ORDERABLES Final Res ult [facility] [address] [place] [address] * (ABNORMAL) Comprehensive metabolic panel (08/29/2017 2:27 PM EDT) SODIUM 139 133 - 146 mmol/L [facility] POTASSIUM 4.3 3.3 - 5.1 mmol/L [facility] CHLORIDE 103 96 - 108 mmol/L [facility] CO2 21 21 - 35 mmol/L [facility] BUN 18 6 - 19 mg/dL [facility] CREATININE 1.10 0.5 - 1.5 mg/dL [facility] GLUCOSE 109(H) 70 - 99 mg/dL [facility] ALBUMIN 4.5 3.9 - 4.8 g/dL [facility] TOTAL PROTEIN 7.4 6.5 - 8.0 g/dL [facility] CALCIUM 9.1 8.4 - 10.3 mg/dL [facility] ALKALINE PHOSPHATASE 46 39 - 117 U/L [facility] TOTAL BILIRUBIN 0.5 0.0 - 1.2 mg/dL [facility] AST 22 0 - 37 U/L [facility] ALT 20 0 - 40 U/L [facility] GLOBULIN 2.9 1 - 4.8 g/dL [facility] EGFR 68 >59 mL/min/1.7 3m2 [facility] Comment:If patient is black, multiply result by 1.159. The eGFR calculation has changed from the MDRD equation to the CKD-EPI equation as of June 06, 2017. ANION GAP 19 10 - 20 mmol/L [facility] Blood 08/29/2017 2:27 PM EDT 08/29/2017 2:31 PM EDT us Vladimir Jones MD LAB BLOOD ORDERABLES Final Res ult Performing Organization Address City/[facility] Co de Phone Number [address] [address] * CBC (08/29/2017 2:27 PM EDT) WBC 5.24 3.40 - 11.20 K/uL [facility] RBC 4.64 4.50 - 5.50 M/uL [facility] HGB 14.0 13.0 - 17.0 g/dL [facility] HCT 40.1 40.0 - 51.0 % [facility] PLT 152 130 - 400 K/uL [facility] MCV 86.4 79.0 - 98.0 fL [facility] MCH 30.2 27.0 - 34.8 pg [facility] MCHC 34.9 31.5 - 36.0 g/dL [facility] RDW 12.6 10.8 - 14.6 % [facility] MPV 10.7 9.4 - 12.4 fl [facility] NRBC 0.00 /100 WBCs [facility] ABSOLUTE NRBC 0.00 K/uL [facility] Blood 08/29/2017 2:27 PM EDT 08/29/2017 2:31 PM EDT us Vladimir Jones MD LAB BLOOD ORDERABLES Final Res ult Performing Organization Address City/[facility]/ZIP Co de Phone Number [address] [address] documented in this encounter Visit Diagnoses Diagnosis Hypertension, unspecified type- Primary Elevated cholesterol Pure hypercholesterolemia Fatigue, unspecified type documented in this encounter Care Teams Sleeping Bag Filler Relationship Specialty Start Date End Date Vladimir Jones MD [address] [place] [address] [place] [address] PCP - General 01/17/17 05/28/20 Karen Love MD [address] [place] [address] PCP - General Internal Medicine 05/29/20 12/21/21 Roger Benedict MD [address] [place] [address] PCP - General Internal Medicine 12/22/21 Dorian Villalobos MD [address] [place] [address] [address] [place] [address] [email or web address] Historical LMR Provider 01/18/17 04/10/21 Vladimir Jones MD [address] [place] [address] Historical LMR Provider 01/18/17 documented as of this encounter Additional Source Comments The information contained in this document represents components of the legal health record. It is not the complete legal health record.[facility]
--- OUTSIDE RECORDS SUMMARY | 2024-12-03 10:54 | XMS_ITS | Clinical Summary ---
Author Organization [facility] Address [address] [place] [address] Phone Care Team Providers Care Mechanical Manufacturing Technician Name Role Phone Physician, Pcp Unknown Primary Care Provider Susan vailable Social History Tobacco Use Types Packs/Day Years Used Date Smoking Tobacco: Never Assessed Sex and Gender Information Value Date Recorded Sex Assigned at Not on file Legal Sex Male 8:38 PM EST Gender Identity Not on file Sexual Orientation Not on file Plan of Treatment Health Maintenance Due Date Last Done Comments DTaP,Tdap,and Td Vaccines (1 - Tdap) 09/12/1966 Pneumococcal Vaccine: 50+ Ye ars (1 of 1 - PCV) 09/12/1997 Zoster Vaccines (1 of 2) 09/12/1997 RSV Immunization Adult Patie nts (1 - 1-dose 75+ series) 09/12/2022 Cholesterol Screening (Lipid Panel) 04/28/2023 Falls Risk Assessment 04/28/2023 Hepatitis C Screening 04/28/2023 Social Influencers of Health Screening 04/28/2023 Depression Screening 04/03/2024 COVID-19 Vaccine (1 - 2023-2 5 season) 2024 Influenza Vaccine (#1) 2024 Hypertension/CHF/CAD Annual BMP Blood Test 08/07/2025 08/07/2024 HIB Vaccines Aged Out No longer eligi [...] on patient's age to complete this topic MMR Vaccines Aged Out No longer eligi ble based on patient's age to complete this topic Meningococcal ACWY Vaccine Aged Out N o longer eligible based on patient's age to complete this topic Meningococcal B Vaccine Aged Out No l onger eligible based on patient's age to complete this topic RSV Immunization Patients Un gretchen 20 months Aged Out No longer eligible b ased on patient's age to complete this topic Varicella Vaccines Aged Out No longer eligible based on patient's age to complete this topic Procedures Procedure Name Priority Date/Time Associated Diagnosis Comments COMPREHENSIVE METABOLIC PANEL Routine 08/07/2024 12:00 AM EDT Essential (primary) hypertension Unspecified abdominal hernia without obstruction or gangrene Other custodial (current) drug therapy Encounter for screening for malignant neoplasm of prostate from Last 3 Months or Most Recently Relevant to Health Maintenance Results * (ABNORMAL) Comprehensive metabolic panel (08/07/2024 12:00 AM EDT) Sodium 140 133 - 145 mmol/L LAB CHEMISTRY METHOD 08/07/2024 9:[address] [facility] Potassium 4.1 3.5 - 5.5 mmol/L LAB CHEMISTRY METHOD 08/07/2024 9:[address] [facility] Chloride 109 96 - 110 mmol/L LAB CHEMISTRY METHOD 08/07/2024 9:[address] [facility] CO2 25 21 - 32 mmol/L LAB CHEMISTRY METHOD 08/07/2024 9:[address] [facility] Anion Gap 6 3 - 11 LAB CHEMISTRY METHOD 08/07/2024 9:[address] [facility] Glucose 103(H) 70 - 100 mg/dL LAB CHEMISTRY METHOD 08/07/2024 9:[address] [facility] BUN 20 5 - 25 mg/dL LAB CHEMISTRY METHOD 08/07/2024 9:[address] [facility] Creatinine 1.06 0.70 - 1.30 mg/dL LAB CHEMISTRY METHOD 08/07/2024 9:[address] [facility] eGFR 73 >=60 mL/min/1. 73m2 LAB CHEMISTRY METHOD 08/07/2024 9:16 PM EDT [facility] Comment:Calculation based on the Chronic Kidney Disease Epidemiology Collaboration (CKD-EPI) equation refit without adjustment for race. BUN/Creatinine Ratio 18.9 LAB CHEMISTRY METHOD 08/07/2024 9:[address] [facility] Calcium 8.9 8.5 - 10.5 mg/dL LAB CHEMISTRY METHOD 08/07/2024 9:[address] [facility] AST (SGOT) 20 10 - 42 unit/L LAB CHEMISTRY METHOD 08/07/2024 9:[address] [facility] ALT (SGPT) 27 10 - 60 unit/L LAB CHEMISTRY METHOD 08/07/2024 9:[address] [facility] Alkaline Phosphatase 58 42 - 121 unit/L LAB CHEMISTRY METHOD 08/07/2024 9:[address] [facility] Total Protein 7.3 6.0 - 8.0 g/dL LAB CHEMISTRY METHOD 08/07/2024 9:[address] [facility] Albumin 4.1 3.2 - 5.0 g/dL LAB CHEMISTRY METHOD 08/07/2024 9:[address] [facility] Total Bilirubin 0.6 0.0 - 1.4 mg/dL LAB CHEMISTRY METHOD 08/07/2024 9:[address] [facility] Blood Venous blood specimen / Unknown 08/07/2024 08/07/2024 7:05 PM EDT us Vikram AMARO LAB BLOOD ORDERABLES Final Res ult [facility] [address] [place] [address], from Last 3 Months or Most Recently Relevant to Health Maintenance Insurance [facility] Care Teams Mechanical Manufacturing Technician Relationship Specialty Start Date End Date Physician, Pcp Unknown PCP - General 08/08/24
--- OUTSIDE RECORDS SUMMARY | 2024-12-03 10:54 | XMS_ITS | Clinical Summary ---
Author Organization [facility] Address [address] [place] [address] Phone Care Team Providers Care Director Of Family Service Center Name Role Phone Vladimir Jones MD Unavailable [phone] Roger Benedict MD Primary Care Provider + Allergies Active Allergy Reactions Criticality Noted Date Comments Amoxicillin 09/14/2018 Clindamycin Hcl 03/09/2020 Clonazepam 06/17/2020 Propranolol 08/20/2018 Penicillins 08/20/2018 Fluoxetine 06/30/2020 Acetaminophen 08/20/2018 Medications Medication-Free Text Bilberry 375 MG Capsule, Sig: Orally Active Medication-Free Text Flax Oil Xtra Capsule, Sig: as directed Orally Active DOCOSAHEXANOIC ACID/EPA (FISH OIL ORAL) as directed BID Acti ve lisinopril (PRINIVIL,ZESTR IL) 10 MG tablet 1 tablet Orally daily Active vitamin E 400 UNIT capsule Take 1 capsule by mouth daily. Active garlic (GARLIC OIL) 1,000 mg Cap as directed Orally Active cholecalciferol , vitamin D3, 1,000 unit capsule 1 capsule Orally Once a day Active vitamin B complex (B-50 COMPLEX) TbER as directed Orally Active Medication-Free Text Vitamin C Plus 1000 MG Tablet, Sig: as directed Orally Active ginkgo biloba leaf extract 60 mg Tab Orally Active amoxicillin (AMOXIL) 500 MG capsule Take 1 capsule (500 mg total) by mouth 3 (three) times a day. 45 capsule 9 Active Additional Information Patient not taking.Reported on 09/14/2018 clindamycin (CLEOCIN) 300 MG capsuleIndicati ons:Dental abscess Take 300 mg by mouth 3 (three) times a day. Indications: Dental abscess Active ALPRAZolam (XANAX) 1 MG tablet Take 0.5 tablets (0.5 mg total) by mouth every 6 (six) hours as needed for anxiety. 36 tablet Active Encounters Date Type Department Care Team Description 10/07/2024 11:11 AM EDT - 10/07/2024 11:59 PM EDT Hospital Encounter [facility] [address] [place] [address] Ana Doe MD Discharge Disposition: Home or Self Care 10/07/2024 Transcribe Orders [facility] Specimen Processing [address] [place] [address] Ana Doe MD Avulsion of cervical nerve root, initial encounter (Primary Dx) from Last 3 Months Immunizations Immunization Administration Dates Next Due Tdap 08/01/2020 Social History Tobacco Use Types Packs/Day Years Used Date Smoking Tobacco: Never Smokeless Tobacco: Never Alcohol Use Standard Drinks/Week Comments Yes 0 (1 standard drink = 0.6 oz pur e alcohol) 1 shot per day Education Answer Date Recorded Are you interested in more education? Not on enoch e 08/11/2022 Are you concerned about learning? Not on file 08/11/2022 No 08/11/2022 No 08/11/2022 Digital Access Answer Date Recorded No 08/28/2022 No 08/28/2022 Reliable internet access at home? Not on file 08/28/2022 Device with a working camera? Not on file Sex and Gender Information Value Date Recorded Sex Assigned at Male 05/14/2020 12:12 PM EST Legal Sex Male 6:52 PM EST Gender Identity Male 05/14/2020 12:12 PM EST Sexual Orientation Something else 05/29/2020 4: 19 PM EST Last Filed Vital Signs Vital Sign Reading Time Taken Comments Blood Pressure 180/94 12/22/2021 12:18 PM EDT Pulse 101 12/22/2021 12:18 PM EDT Temperature 36.1 C (97 F) 12/22/2021 12:18 PM EDT Respiratory Rate 18 12/22/2021 12:18 PM EDT Oxygen Saturation 97% 12/22/2021 12:18 PM EDT Inhaled Oxygen Concentration - - Weight 94.3 kg (208 lb) 12/22/2021 12:18 PM EDT Height 177.8 cm (5' 10 ) 12/22/2021 12:18 PM EDT Body Mass Index 29.84 12/22/2021 12:18 PM EDT Plan of Treatment Health Maintenance Due Date Last Done Comments DEPRESSION SCREENING 1957 HEPATITIS C SCREENING 09/12/1965 HEPATITIS A VACCINES (1 of 2 - Risk 2-dose series) 09/12/1966 ZOSTER VACCINES (1 of 2) 09/12/1997 PNEUMOCOCCAL VACCINES (50+ years) (2 of 2 - PPSV23) 12/01/2020 12/02/2019 RSV VACCINE (1 - 1-dose 75+ series) 09/12/2022 COVID-19 VACCINE (2 - season) 2023 07/29/2020 INFLUENZA VACCINE (#1) 2024 9, 12/05/2017, 05/05/2016, Additional history exists CREATININE LEVEL 10/07/2025 10/07/2024, , 06/17/2020, Additional history exists POTASSIUM LEVEL 10/07/2025 10/07/2024, 07/02, 06/17/2020, Additional history exists LIPID PANEL 10/07/2029 10/07/2024, 06/01, 06/03/2019, Additional history exists Adult Td,Tdap Booster 08/01/2030 08/01/2020 SMOKING STATUS SCREENING (Once After 26 Yrs) Completed 06/17/2020 HIB VACCINES Aged Out No longer eligi ble based on patient's age to complete this topic MENINGOCOCCAL VACCINES (ACWY) Aged Out No longer eligible based on patient's age to complete this topic MENINGOCOCCAL VACCINES (B) Aged Out N o longer eligible based on patient's age to complete this topic Medical Devices Not on file Procedures Procedure Name Priority Date/Time Associated Diagnosis Comments CBC AND DIFFERENTIAL Routine 10/07/2024 12:33 PM EDT Avulsion of cervical nerve root, initial encounter COMPREHENSIVE METABOLIC PANEL Routine 10/07/2024 12:33 PM EDT Avulsion of cervical nerve root, initial encounter LIPID PANEL Routine 10/07/2024 12:33 PM EDT Avulsion of cervical nerve root, initial encounter TSH Routine 10/07/2024 12:33 PM EDT Avulsion of cervical nerve root, initial encounter from Last 3 Months Results * (ABNORMAL) Comprehensive metabolic panel (10/07/2024 12:33 PM EDT) SODIUM 140 133 - 146 mmol/L [facility] POTASSIUM 4.5 3.3 - 5.1 mmol/L [facility] Comment:Specimen slightly he molyzed, result may be falsely elevated. CHLORIDE 105 96 - 108 mmol/L [facility] CO2 23 21 - 35 mmol/L [facility] BUN 20(H) 6 - 19 mg/dL [facility] CREATININE 1.00 0.5 - 1.5 mg/dL [facility] GLUCOSE 111(H) 70 - 99 mg/dL [facility] ALBUMIN 4.6 3.9 - 4.8 g/dL [facility] TOTAL PROTEIN 7.3 6.5 - 8.0 g/dL [facility] CALCIUM 9.6 8.4 - 10.3 mg/dL [facility] ALKALINE PHOSPHATASE 60 39 - 117 U/L [facility] TOTAL BILIRUBIN 0.5 0.0 - 1.2 mg/dL [facility] AST 24 0 - 37 U/L [facility] ALT 18 0 - 40 U/L [facility] GLOBULIN 2.7 1 - 4.8 g/dL [facility] EGFR 78 >59 mL/min/1.7 3m2 [facility] Comment:Estimated glomerular filtration rate calculated using the CKD-EPI refit equation. ANION GAP 17 10 - 20 mmol/L [facility] Blood 10/07/2024 12:3 3 PM EDT 10/07/2024 12:37 PM EDT us Ana Doe MD LAB BLOOD ORDERABLES F inal Result [facility] [address] [place], [place] [phone] * (ABNORMAL) CBC and differential (10/07/2024 12:33 PM EDT) WBC 5.50 4.00 - 11.00 K/uL [facility] RBC 4.86 4.50 - 5.90 M/uL [facility] HGB 14.3 13.5 - 17.5 g/dL [facility] HCT 42.5 41.0 - 53.0 % [facility] PLT 154 150 - 450 K/uL [facility] MCV 87.4 80.0 - 100.0 fL [facility] MCH 29.4 27.0 - 31.0 pg [facility] MCHC 33.6 32.0 - 36.0 g/dL [facility] RDW 12.6 11.5 - 14.5 % [facility] MPV 11.2 8.4 - 12.0 fL [facility] NRBC 0.00 0.00 /100 WBCs [facility] ABSOLUTE NRBC 0.00 0.00 K/uL [facility] DIFF METHOD Auto [facility] NEUTS 49.4 48.0 - 76.0 % [facility] LYMPHS 35.1 18.0 - 41.0 % [facility] MONOS 7.3 4.0 - 11.0 % [facility] EOS 7.3(H) 0.0 - 5.0 % [facility] BASOS 0.7 0.0 - 1.5 % [facility] Granulocytes, immature (%) 0.2 0.0 - 0.9 % [facility] ABSOLUTE NEUTS 2.72 1.92 - 7.60 K/uL [facility] ABSOLUTE LYMPHS 1.93 0.72 - 4.10 K/uL [facility] ABSOLUTE MONOS 0.40 0.16 - 1.10 K/uL [facility] ABSOLUTE EOS 0.40 0.00 - 0.50 K/uL [facility] ABSOLUTE BASOS 0.04 0.00 - 0.15 K/uL [facility] Granulocytes, immature 0.01 0.00 - 0.09 K/uL [facility] Blood 10/07/2024 12:3 3 PM EDT 10/07/2024 12:37 PM EDT us Ana Doe MD LAB BLOOD ORDERABLES F inal Result Performing Organization Address City/[facility]/ZIP Co de Phone Number [address] [address] * TSH (10/07/2024 12:33 PM EDT) TSH 1.03 0.27 - 4.20 uIU/mL [facility] Blood 10/07/2024 12:3 3 PM EDT 10/07/2024 12:37 PM EDT us Ana Doe MD LAB BLOOD ORDERABLES F inal Result Performing Organization Address [facility] Co de Phone Number [address] [address] * (ABNORMAL) Lipid panel (10/07/2024 12:33 PM EDT) HDL 61 mg/dL [facility] Comment: Interpretation <40 mg/dL: Low HDL cholesterol (major risk factor for CHD) Greater than or equal to 60 mg/dL: High HDL cholesterol ( negative risk factor for CHD) HDL - cholesterol is affected by a number of factors, e.g. smoking, excerise, hormones, sex and age. CHOLESTEROL 166 0 - 240 mg/dL [facility] TRIGLYCERIDES 122 30 - 160 mg/dL [facility] LDL 81 50 - 129 mg/dL [facility] Comment: LDL levels in terms of risk for coronary heart disease: <100 mg/dL: Optimal 100-129 mg/dL: Near or above optimal 130-159 mg/dL: Borderline high 160-189 mg/dL: High >190 mg/dL: Very High CARDIAC RISK RATIO 2.7(L) 3.4 - 5.0 [facility] Blood 10/07/2024 12:3 3 PM EDT 10/07/2024 12:37 PM EDT us Ana Doe MD LAB BLOOD ORDERABLES F inal Result [facility] [address] [place] [address] from Last 3 Months Insurance [facility] MED[facility] REPLACEMENT [facility] MEDICARE REPLACEMENT [facility] MEDICARE [facility]PLACEMENT [facility] MEDICARE REPLACEMENT [facility] MEDICARE REPLACEMENT Care Teams Director Of Family Service Center Relationship Specialty Start Date End Date Roger Benedict MD [address] [place] [phone] PCP - General Internal Medicine 12/22/21 Vladimir Jones MD [address] [place] [phone] Historical LMR Provider 01/18/17 Additional Source Comments The information contained in this document represents components of the legal health record. It is not the complete legal health record.[facility]
--- OUTSIDE RECORDS SUMMARY | 2024-12-03 10:54 | XMS_ITS | Clinical Summary ---
Author Organization [employer] Address [address] [facility] [address] [place] [address] Care Team Providers Care Battery Wrecker Operator Name Role Phone Kd Eaton DMD [...] Description 01/27/2025 1:00 PM EDT Office Visit [facility] [address] [place] [address] Maribel Blanco Health Maintenance Due Date Last [...] to Health Maintenance Insurance DENTAL - DQ [facility] Care Teams Battery Wrecker Operator Relationship Specialty Start Date End Date Kd Eaton DMD [address] [place] [phone] Dental [facility] 04/01/24
== END ==
LOC: HO.CARD 09:46
PROVIDERS: PCP Internal Medicine; Visit Provider Internal Medicine
DX: I49.3 Ventricular premature depolarization (principal); R07.2 Precordial pain
CPT/HCPCS: 78451; 93017; A9500

== ENCOUNTER → 2024-12-03 09:49 | Outpatient (BNV) | payer OTHER, SELFPAY | PROVIDERS: PCP Internal Medicine | DX: I49.1 Atrial premature depolarization (principal); I49.3 Ventricular premature depolarization; R07.89 Other chest pain; R06.02 Shortness of breath | CPT/HCPCS: 78451; 93016; 93018 ==

== ENCOUNTER 2024-12-30 13:45 | Outpatient (AMB) | payer OTHER, SELFPAY ==
--- OUTSIDE RECORDS SUMMARY | 2003-08-25 14:45 | XMS_ITS | Continuity of Care Document ---
Author Organization [facility] [place] [address] [place] [phone] Phone Care Team Providers Care Corporate Planning Manager Name Role Phone Unavailable Unavailable Unavailable Advance Directives Directive Yes / No Effective Date File Name No Information Encounters Encounter Description Practice Location Reason(s) For Visit Diagnoses Date Provider [facility], [address] [place] [address], [place], [place], [id number], [place] tel:[phone] [facility] No Information 2003 No Information Family History Family Member Type Diagnosis Age At Onset No Information Payers Payer name Insurance type Covered libertarian ID Authoriza tion(s) No Information Social History Type Description Quantity Date Captured Comments Sex Male Smoking Status No Information Chief Complaint And Reason For Visit No Information History Of Present Illness Encounter Date Complaint History Of Prese nt Illness No Information Instructions Date Instruction Additional Infor mation No Information Assessments Type Assessment Date No Information
[2024-12-30 13:47] VITALS: BP 130/72; PULSE 65; BMI 17.0
--- NOTE | 2024-12-30 13:47 | A.OFFVIS_ITS ---
Vital Signs 12/30/24 13:47 Height 7 ft 7 in Weight 199 lb 11.821 oz BMI 17.0 BP 130/72 Blood Pressure Location Lt brachial Position Sitting Pulse 65 Pulse Source Pulse Oximeter Intake Visit Reasons: f/up-testing Complaint Evaluation Supervisor Required: No Accompanied by: Self / Same As Patient Allergies amoxicillin Allergy (Intermediate, Verified 12/30/24 13:49) Facial Swelling clindamycin Adverse Reaction (Intermediate, Verified 12/30/24 13:50) Blister doxycycline Adverse Reaction (Mild, Verified 12/30/24 13:50) Blister Medication List - Last Reconciled 12/30/24 by KLEVER Diaz alprazolam 0.5 mg PO DAILY lisinopril 5 mg PO DAILY HPI HPI f/up-testing: Details: Edgar is a 79-year-old male past medical history of hypertension, heart palpitations who recently underwent a Holter monitor, echocardiogram and exer cise nuclear stress test and now presents for follow-up. He reports that following his stress test he had 3 weeks of feeling fatigued and short of breath. He believes it was from the radiation exposure. This symptom has resolved and he is now back to his normal self. He is very concerned about radiation exposure due to high exposures in the past. He states his heart palpitations have lessened recently. He is taking a new supplement that is helping him sleep better. No chest discomfort at rest or with activity. He states when he goes dancing he will notice something vague in his chest that he can not describe. He usually has no shortness of breath, no PND, orthopnea or edema. He says he can not take beta-blockers. 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 He prefers natural supplements. He will look into whether he would take a calcium channel jamison or not. He does not want tests with radiation exposure. HPI Comments Details: Edgar has been referred for cardiac consultation. He was actually referred by his prior PCP Dr. Benedict, but patient states that his new PCP is now Dr. Doe. Any case, he does not have any known cardiac issues including coronary disease or myocardial infarction or cardiomyopathy. He states that he can randomly feels some heart fluttering. He has had that for the last 6 months or so. He does not have any clear-cut exertional angina. However, he states that sometimes when he runs to catch a bus he has noticed some shortness of breath/pressure. [facility] Medical History Macular degeneration of left eye Thyroiditis Primary hypertension Surgical History Hx of partial adrenalectomy History of cataract surgery Family History Father Heart attack Cerebral hemorrhage Social History Alcohol intake: current Alcohol type: beer and wine Patient Tobacco Use Status: Never used Tobacco Review of Systems Const All systems reviewed & are unremarkable except as noted in HPI and below Denies chills, Reports fatigue, Denies fever(s), Denies frequent falls, Denies weakness, Denies weight gain and Denies weight loss ENT Denies dizziness Card Denies chest pain, Denies chest pain at rest, Denies chest pain with activity, Denies rapid heart rate, Denies pedal edema, Denies edema, Denies leg edema, Denies lightheadedness, Denies palpitations, Reports dyspnea and Denies orthopnea Resp Denies cough and Reports dyspnea GI Denies hematochezia and Denies change in stool character Musc Denies abnormal gait, Denies limited range of motion, Denies muscle cramps, Denies muscle weakness, Denies numbness, Denies radiating pain into limb, Denies stiffness and Denies tingling Neuro Denies abnormal gait, Denies dizziness, Denies frequent falls, Denies numbness, Denies tingling and Denies weakness Endo Reports fatigue and Denies palpitations Physical Exam Vital Signs: Last Vital Signs Pulse 65 12/30/24 13:47 BP 130/72 12/30/24 13:47 BMI result Body Mass Index 17.0 Const General: cooperative, healthy appearing, comfortable and no acute distress Orientation/consciousness: patient oriented x3 HEENT Other: Unremarkable Head: Yes normal to inspection Neck Neck: Yes normal visual inspection Chest Chest palpation & inspection: normal inspection of the chest Resp Auscultation: clear to auscultation bilaterally, no crackles, no rhonchi and no wheezes Cardio Palpation: normal PMI Heart sounds: S1 normal heart sound present, S2 normal heart sound present, no gallops, no murmurs and no rubs GI Palpation (GI): Soft to palpation Back/Spine/Pelvis Other: unremarkable Skin General skin exam: no rashes or lesions noted Neuro General: patient oriented x3 Extrem General: Yes normal to inspection Psych Mental Status: mental status grossly normal Assessment & Plan Assessment & Plan (1) Abnormal nuclear cardiac imaging test: Code(s): R93.1 - Abnormal findings on diagnostic imaging of heart and coronary circulation Category: Medical Plan: Exercise nuclear stress test done 12/03/2024 with exercise 5 minutes with report of chest discomfort and shortness of breath with frequent PVCs during exercise but no EKG changes of ischemia. He had the stress images only and did not come back for the rest images. Results showed inferior perfusion defect but unable to tell if this was ischemia or infarct. This result was reviewed with him in detail. Informed him that he may have coronary artery disease. Discussed test for further evaluation including CTA of the coronary arteries and diagnostic cardiac catheterization. He declines each of these at this time. Cardiac risk factor modification reviewed with him. Blood pressure is currently controlled. Continue lisinopril. Recommend good cholesterol control. Signs and symptoms of angina reviewed. Cardiology follow-up 3 months for re-evaluation of symptoms and treatment plan. (2) PAC (premature atrial contraction): Code(s): I49.1 - Atrial premature depolarization Category: Medical Plan: Holter monitor done 11/14/2024 shows sinus rhythm with average heart rate 79 beats per minute, SVE 27 %, rare ventricular ectopy and rare couplets and triplets. Discuss this finding with him in detail. Informed him that frequent PACs can lead to atrial fibrillation and he states understanding. Echocardiogram done 11/14/2024 showed EF 60-65%, mildly dilated left atrium, impaired relaxation, mild MR, ascending aorta 4 cm. Discussed beta-jamison use and he reports adverse reaction to Inderal in the past. Discussed calcium channel jamison used to limit number of PACs and he will research this. Recommended reduction in caffeinated beverages. ED care if needed for sustained rapid heart palpitations. (3) PVC (premature ventricular contraction): Code(s): I49.3 - Ventricular premature depolarization Category: Medical Plan: Frequent PVCs seen on prior EKG and during exercise portion of nuclear stress test. Holter monitor done 11/14/2024 showed only rare ventricular ectopy. His echo showed normal EF which is reassuring. (4) Primary hypertension: Code(s): I10 - Essential (primary) hypertension Category: Medical Plan: Blood pressure goal less than 130/80. Controlled at this time. Continue lisinopril. (5) Mild ascending aorta dilatation: Code(s): I77.810 - Thoracic aortic ectasia Category: Medical Plan: Recent echo showing ascending aorta 4 cm. Blood pressure is controlled. Will follow periodically with echocardiogram. Patient Instructions: Time spent on chart review, documentation, interview, assessment Coding Level of Care Code Est Pt Level 4 (32318) Complex EM visit Add On G2211 Diagnoses Abnormal nuclear cardiac imaging test R93.1 PAC (premature atrial contraction) I49.1 PVC (premature ventricular contraction) I49.3 Primary hypertension I10 Mild ascending aorta dilatation I77.810 Time Spent (min) 32
--- OUTSIDE RECORDS SUMMARY | 2024-12-30 15:23 | XMS_ITS | Clinical Summary ---
Author Organization [employer] Address [address] [facility] [address] [place] [address] Care Team Providers Care Production Trainer Name Role Phone Kd Eaton DMD Unavailable [...] Team (Late st Contact Info) Description 01/27/2025 12:45 PM EDT Office Visit [facility] ADULT [facility] [address] [place] [address] Maribel Blanco Health Maintenance Due Date Last Done Comments Depression Screening 1945 Lipid Panel 1945 SDOH Screening 1945 Alcohol/Substance Use Screening 1959 Hepatitis C Screening 09/12/1965 Zoster Vaccines (1 of 2) 09/12/1997 Pneumococcal Vaccine: 50+ Years (2 of 2 - PPSV23) 12/01/2020 12/02/2019 RSV Patients and Patients Aged 60 years or older (1 - 1-dose 75+ series) 09/12/2022 Dental Oral Exam 11/15/2024 05/17/2024 COVID-19 Vaccine (3 - 2024- season) 2024 02/16/2021, 07/29/2020 Influenza Vaccine (#1) 2024 , 01/15/2022, 12/30/2020, [...] to Health Maintenance Insurance DENTAL - [facility] [employer] Care Teams Production Trainer Relationship Specialty Start Date End Date Kd Eaton DMD [address] [place] [id number] Dental Psychology Technician 04/01/24
--- OUTSIDE RECORDS SUMMARY | 2024-12-30 15:23 | XMS_ITS | Clinical Summary ---
Author Organization [facility] Address [address] [place] [phone] Phone Care Team Providers Care Bit Setter Name Role Phone Vladimir Jones MD Unavailable [phone] Roger Benedict MD Primary Care Provider [...] PM EDT Hospital Encounter [facility] [address] [place] [address] Ana Doe MD Discharge Disposition: Home or Self Care 10/07/2024 Transcribe Orders [facility] Specimen Processing [address] [place] [address] Ana Doe MD Avulsion of cervical nerve [...] VACCINE (1 - 1-dose 75+ series) 09/12/2022 INFLUENZA VACCINE (#1) 2024 9, 12/05/2017, 05/05/2016, Additional history exists COVID-19 VACCINE (2 - season) 2024 07/29/2020 CREATININE LEVEL 10/07/2025 10/07/2024, , 06/17/2020, Additional [...] EDT) SODIUM 140 133 - 146 mmol/L [facility] POTASSIUM 4.5 3.3 - 5.1 mmol/L [facility] Comment:Specimen slightly he molyzed, result may be falsely elevated. CHLORIDE 105 96 - 108 mmol/L [facility] CO2 23 21 - 35 mmol/L [facility] BUN 20(H) 6 - 19 mg/dL [facility] CREATININE 1.00 0.5 - 1.5 mg/dL [facility] GLUCOSE 111(H) 70 - 99 mg/dL [facility] ALBUMIN 4.6 3.9 - 4.8 g/dL [facility] TOTAL PROTEIN 7.3 6.5 - 8.0 g/dL [facility] CALCIUM 9.6 8.4 - 10.3 mg/dL [facility] ALKALINE PHOSPHATASE 60 39 - 117 U/L [facility] TOTAL BILIRUBIN 0.5 0.0 - 1.2 mg/dL [facility] AST 24 0 - 37 U/L [facility] ALT 18 0 - 40 U/L [facility] GLOBULIN 2.7 1 - 4.8 g/dL [facility] EGFR 78 >59 mL/min/1.7 3m2 [facility] Comment:Estimated glomerular filtration rate calculated using the CKD-EPI refit equation. ANION GAP 17 10 - 20 mmol/L [facility] Blood 10/07/2024 12:3 3 PM EDT 10/07/2024 12:37 PM EDT us Ana Doe MD LAB BLOOD ORDERABLES F inal Result [facility] [address] [place], [place] [id number] * (ABNORMAL) CBC and differential (10/07/2024 12:33 PM EDT) WBC 5.50 4.00 - 11.00 K/uL [facility] RBC 4.86 4.50 - 5.90 M/uL [facility] HGB 14.3 13.5 - 17.5 g/dL [facility] HCT 42.5 41.0 - 53.0 % [facility] PLT 154 150 - 450 K/uL [facility] MCV 87.4 80.0 - 100.0 fL [facility] MCH 29.4 27.0 - 31.0 pg [facility] MCHC 33.6 32.0 - 36.0 g/dL [facility] RDW 12.6 11.5 - 14.5 % [facility] MPV 11.2 8.4 - 12.0 fL [facility] NRBC 0.00 0.00 /100 WBCs [facility] ABSOLUTE NRBC 0.00 0.00 K/uL [facility] DIFF METHOD Auto [facility] NEUTS 49.4 48.0 - 76.0 % [facility] LYMPHS 35.1 18.0 - 41.0 % [facility] MONOS 7.3 4.0 - 11.0 % [facility] EOS 7.3(H) 0.0 - 5.0 % [facility] BASOS 0.7 0.0 - 1.5 % [facility] Granulocytes, immature (%) 0.2 0.0 - 0.9 % [facility] ABSOLUTE NEUTS 2.72 1.92 - 7.60 K/uL [facility] ABSOLUTE LYMPHS 1.93 0.72 - 4.10 K/uL [facility] ABSOLUTE MONOS 0.40 0.16 - 1.10 K/uL [facility] ABSOLUTE EOS 0.40 0.00 - 0.50 K/uL [facility] ABSOLUTE BASOS 0.04 0.00 - 0.15 K/uL [facility] Granulocytes, immature 0.01 0.00 - 0.09 K/uL [facility] Blood 10/07/2024 12:3 3 PM EDT 10/07/2024 12:37 PM EDT us Ana Doe MD LAB BLOOD ORDERABLES F inal Result Performing Organization Address City/[facility]/ZIP Co de Phone Number [address] [phone] * TSH (10/07/2024 12:33 PM EDT) TSH 1.03 0.27 - 4.20 uIU/mL [facility] Blood 10/07/2024 12:3 3 PM EDT 10/07/2024 12:37 PM EDT us Ana Doe MD LAB BLOOD ORDERABLES F inal Result Performing Organization Address [facility] Co de Phone Number [address] [address] * (ABNORMAL) Lipid panel (10/07/2024 12:33 PM EDT) HDL 61 mg/dL [facility] Comment: Interpretation <40 mg/dL: Low HDL cholesterol (major risk factor for CHD) Greater than or equal to 60 mg/dL: High HDL cholesterol ( negative risk factor for CHD) HDL - cholesterol is affected by a number of factors, e.g. smoking, excerise, hormones, sex and age. CHOLESTEROL 166 0 - 240 mg/dL [facility] TRIGLYCERIDES 122 30 - 160 mg/dL [facility] LDL 81 50 - 129 mg/dL [facility] Comment: LDL levels in terms of risk for coronary heart disease: <100 mg/dL: Optimal 100-129 mg/dL: Near or above optimal 130-159 mg/dL: Borderline high 160-189 mg/dL: High >190 mg/dL: Very High CARDIAC RISK RATIO 2.7(L) 3.4 - 5.0 C [facility] Blood 10/07/2024 12:3 3 PM EDT 10/07/2024 12:37 PM EDT us Ana Doe MD LAB BLOOD ORDERABLES F inal Result [facility] [address] [place] [address] from Last 3 Months Insurance [facility] MEDICARE REPLACEMENT [facility] MEDICARE REPLACEMENT [facility] MEDICARE [facility]PLACEMENT [facility] MEDICARE REPLACEMENT [facility] MEDICARE REPLACEMENT [facility] MEDICARE REPLACEMENT Care Teams Bit Setter Relationship Specialty Start Date End Date Roger Benedict MD [address] [place] [id number] PCP - General Internal Medicine 12/22/21 Vladimir Jones MD [address] [place] [phone] Historical LMR Provider 01/18/17 Additional Source Comments The information contained in this document represents components of the legal health record. It is not the complete legal health record.[facility]
--- OUTSIDE RECORDS SUMMARY | 2024-12-30 15:23 | XMS_ITS | Clinical Summary ---
Author Organization [address] [facility] Address [address] [place] [address] Phone Care Team Providers Care Terrazzo Polisher Helper Name Role Phone Physician, Pcp Unknown Primary [...] abdominal hernia without obstruction or gangrene Other halfway (current) drug therapy Encounter for screening for malignant neoplasm of prostate from Last 3 Months or Most Recently Relevant to Health Maintenance Results * (ABNORMAL) Comprehensive metabolic panel (08/07/2024 12:00 AM EDT) Sodium 140 133 - 145 mmol/L LAB CHEMISTRY METHOD 08/07/2024 9:16 PM [facility] Potassium 4.1 3.5 - 5.5 mmol/L LAB CHEMISTRY METHOD 08/07/2024 9:16 PM [facility] Chloride 109 96 - 110 mmol/L LAB CHEMISTRY METHOD 08/07/2024 9:16 PM [facility] CO2 25 21 - 32 mmol/L LAB CHEMISTRY METHOD 08/07/2024 9:16 PM [facility] Anion Gap 6 3 - 11 LAB CHEMISTRY METHOD 08/07/2024 9:16 PM [facility] Glucose 103(H) 70 - 100 mg/dL LAB CHEMISTRY METHOD 08/07/2024 9:16 PM [facility] BUN 20 5 - 25 mg/dL LAB CHEMISTRY METHOD 08/07/2024 9:16 PM [facility] Creatinine 1.06 0.70 - 1.30 mg/dL LAB CHEMISTRY METHOD 08/07/2024 9:16 PM [facility] eGFR 73 >=60 mL/min/1. 73m2 LAB CHEMISTRY METHOD 08/07/2024 9:16 PM EDT [facility] Comment:Calculation based on the Chronic Kidney Disease Epidemiology Collaboration (CKD-EPI) equation refit without adjustment for race. BUN/Creatinine Ratio 18.9 LAB CHEMISTRY METHOD 08/07/2024 9:16 PM [facility] Calcium 8.9 8.5 - 10.5 mg/dL LAB CHEMISTRY METHOD 08/07/2024 9:16 PM [facility] AST (SGOT) 20 10 - 42 unit/L LAB CHEMISTRY METHOD 08/07/2024 9:16 PM [facility] ALT (SGPT) 27 10 - 60 unit/L LAB CHEMISTRY METHOD 08/07/2024 9:16 PM [facility] Alkaline Phosphatase 58 42 - 121 unit/L LAB CHEMISTRY METHOD 08/07/2024 9:16 PM [facility] Total Protein 7.3 6.0 - 8.0 g/dL LAB CHEMISTRY METHOD 08/07/2024 9:16 PM [facility] Albumin 4.1 3.2 - 5.0 g/dL LAB CHEMISTRY METHOD 08/07/2024 9:16 PM [facility] Total Bilirubin 0.6 0.0 - 1.4 mg/dL LAB CHEMISTRY METHOD 08/07/2024 9:16 PM [facility] Blood Venous blood specimen / Unknown 08/07/2024 08/07/2024 7:05 PM EDT us Vikram AMARO LAB BLOOD ORDERABLES Final Res ult [facility] [address] [place] [address], from Last 3 Months or Most Recently Relevant to Health Maintenance Insurance [facility] Care Teams Terrazzo Polisher Helper Relationship Specialty Start Date End Date Physician, Pcp Unknown PCP - General 08/08/24
--- OUTSIDE RECORDS SUMMARY | 2024-12-30 15:23 | XMS_ITS | Encounter Summary ---
Author Organization [facility] Address [address] [employer] [facility] [address] [place] [phone] Phone Care Team Providers Care Leaded Glass Installer Name Role Phone Dorian Villalobos MD Unavailable [phone] Vladimir Jones MD Unavailable [phone] Karen Love MD Primary Care Provide r Roger Benedict MD Primary Care Provider + Encounter Details Date Type Department Care Team (Late st Contact Info) Description 08/01/2020 Procedure [facility], Ct Scan - [address] [address] Social History Tobacco Use Types Packs/Day Years [...] 2:11 PM EDT Anna Addison, KAYY * [place] Suicide Severity Rating Scale (Screener/Recent Self-Report) Question [...] on filedocumented in this encounter Care Teams Leaded Glass Installer Relationship Specialty Start Date End Date Karen Love MD [address] [place] [address] PCP - General Internal Medicine 05/29/20 12/21/21 Roger Benedict MD [address] [place] [address] PCP - General Internal Medicine 12/22/21 Dorian Villalobos MD [address] [place] [address] [place] [phone] [email or web address] Historical LMR Provider 01/18/17 04/10/21 Vladimir Jones MD [address] [place] [id number] Historical LMR Provider 01/18/17 documented as of this encounter Additional Source Comments The information contained in this document represents components of the legal health record. It is not the complete legal health record.[facility]
--- OUTSIDE RECORDS SUMMARY | 2024-12-30 15:23 | XMS_ITS | Encounter Summary ---
Author Organization [facility] Address [address] [place] [address] [place] [phone] Phone Care Team Providers Care Wrapper Sorter Name Role Phone Vladimir Jones MD Primary Care Provider [phone] Dorian Villalobos MD Unavailable [phone] Vladimir Jones MD Unavailable [phone] Karen Love MD Primary Care Provide r Roger Benedict MD Primary Care Provider + Encounter Details Date Type Department Care Team (Late st Contact Info) Description 08/29/2017 Transcribe Orders [facility] Laboratory [address] [place] [address] Vladimir Jones MD [address] [place] [address] Dr [place], [place] [id number] Hypertension, unspecified type (Primary Dx); Elevated cholesterol; [...] * Magnesium (08/29/2017 2:27 PM EDT) Pathologist [facility] MAGNESIUM 1.8 1.6 - 2.6 mg/dL [facility] Blood 08/29/2017 2:27 PM EDT 08/29/2017 2:31 PM EDT us Vladimir Jones MD LAB BLOOD ORDERABLES Final Res ult Performing Organization Address [facility]/ZIP Co de Phone Number [address] [address] * TSH (08/29/2017 2:27 PM EDT) [facility] TSH 1.38 0.27 - 4.20 uIU/mL [facility] Blood 08/29/2017 2:27 PM EDT 08/29/2017 2:31 PM EDT us Vladimir Jones MD LAB BLOOD ORDERABLES Final Res ult Performing Organization Address [facility]/ZIP Co de Phone Number [address] [address] * T4, total (08/29/2017 2:27 PM EDT) [facility] THYROXINE 6.6 4.6 - 12.0 ug/dL [facility] Blood 08/29/2017 2:27 PM EDT 08/29/2017 2:31 PM EDT us Vladimir Jones MD LAB BLOOD ORDERABLES Final Res ult Performing Organization Address [facility]/ZIP Co de Phone Number [address] [address] * (ABNORMAL) Lipid panel (08/29/2017 2:27 PM EDT) [facility] HDL 64 mg/dL [facility] Comment: Interpretation: Risk Level Males Decreased >45 mg/dL Average 40-45 mg/dL Increased <40 mg/dL CHOLESTEROL 178 0 - 240 mg/dL [facility] TRIGLYCERIDES 98 30 - 160 mg/dL [facility] LDL 94 50 - 129 mg/dL [facility] Comment: LDL levels in terms of risk for coronary heart disease: <100 mg/dL: Optimal 100-129 mg/dL: Near or above optimal 130-159 mg/dL: Borderline high 160-189 mg/dL: High >190 mg/dL: Very High CARDIAC RISK RATIO 2.8(L) 3.4 - 5.0 C [facility] Blood 08/29/2017 2:27 PM EDT 08/29/2017 2:31 PM EDT us Vladimir Jones MD LAB BLOOD ORDERABLES Final Res ult [facility] [address] [place] [address] * (ABNORMAL) Comprehensive metabolic panel (08/29/2017 2:27 PM EDT) SODIUM 139 133 - 146 mmol/L [facility] POTASSIUM 4.3 3.3 - 5.1 mmol/L [facility] CHLORIDE 103 96 - 108 mmol/L [facility] CO2 21 21 - 35 mmol/L [facility] BUN 18 6 - 19 mg/dL [facility] CREATININE 1.10 0.5 - 1.5 mg/dL [facility] GLUCOSE 109(H) 70 - 99 mg/dL [facility] ALBUMIN 4.5 3.9 - 4.8 g/dL [facility] TOTAL PROTEIN 7.4 6.5 - 8.0 g/dL [facility] CALCIUM 9.1 8.4 - 10.3 mg/dL [facility] ALKALINE PHOSPHATASE 46 39 - 117 U/L [facility] TOTAL BILIRUBIN 0.5 0.0 - 1.2 mg/dL [facility] AST 22 0 - 37 U/L [facility] ALT 20 0 - 40 U/L [facility] GLOBULIN 2.9 1 - 4.8 g/dL [facility] EGFR 68 >59 mL/min/1.7 3m2 [facility] Comment:If patient is black, multiply result by 1.159. The eGFR calculation has changed from the MDRD equation to the CKD-EPI equation as of June 06, 2017. ANION GAP 19 10 - 20 mmol/L [facility] Blood 08/29/2017 2:27 PM EDT 08/29/2017 2:31 PM EDT us Vladimir Jones MD LAB BLOOD ORDERABLES Final Res ult Performing Organization Address City/[facility] Co de Phone Number [address] [address] * CBC (08/29/2017 2:27 PM EDT) WBC 5.24 3.40 - 11.20 K/uL [facility] RBC 4.64 4.50 - 5.50 M/uL [facility] HGB 14.0 13.0 - 17.0 g/dL [facility] HCT 40.1 40.0 - 51.0 % [facility] PLT 152 130 - 400 K/uL [facility] MCV 86.4 79.0 - 98.0 fL [facility] MCH 30.2 27.0 - 34.8 pg [facility] MCHC 34.9 31.5 - 36.0 g/dL [facility] RDW 12.6 10.8 - 14.6 % [facility] MPV 10.7 9.4 - 12.4 fl [facility] NRBC 0.00 /100 WBCs [facility] ABSOLUTE NRBC 0.00 K/uL [facility] Blood 08/29/2017 2:27 PM EDT 08/29/2017 2:31 PM EDT us Vladimir Jones MD LAB BLOOD ORDERABLES Final Res ult Performing Organization Address City/[facility]/ZIP Co de Phone Number [address] [address] documented in this encounter Visit Diagnoses Diagnosis Hypertension, unspecified type- Primary Elevated cholesterol Pure hypercholesterolemia Fatigue, unspecified type documented in this encounter Care Teams Wrapper Sorter Relationship Specialty Start Date End Date Vladimir Jones MD [address] [place] [address] [place] [address] PCP - General 01/17/17 05/28/20 Karen Love MD [address] [place] [address] PCP - General Internal Medicine 05/29/20 12/21/21 Roger Benedict MD [address] [place] [id number] PCP - General Internal Medicine 12/22/21 Dorian Villalobos MD [address] [place] [address] [address] [place] [address] [email or web address] Historical [facility] Provider 01/18/17 04/10/21 Vladimir Jones MD [address] [place] [id number] Historical LMR Provider 01/18/17 documented as of this encounter Additional Source Comments The information contained in this document represents components of the legal health record. It is not the complete legal health record.[facility]
--- OUTSIDE RECORDS SUMMARY | 2024-12-30 15:23 | XMS_ITS | Encounter Summary ---
Author Organization [facility] Address [address] [place] [address] Care Team Providers Care Shop Director Name Role Phone Physician, Pcp Unknown Primary Care Provider Susan vailable Encounter Details Date Type Department Care Team (Late st Contact Info) Description 08/07/2024 Lab Requisition [facility] - Main Lab [address] [facility] [place] [address] Vikram Soto PA [address] [facility] [address] [place], [place] [id number] Essential (primary) hypertension; Unspecified abdominal hernia without obstruction or gangrene; Other retirement (current) drug therapy; Encounter for screening for [...] abdominal hernia without obstruction or gangrene Other long term care social worker (current) drug therapy Encounter for screening for malignant neoplasm of prostate URINALYSIS WITH REFLEX MICROSCOPIC AND CULTURE Routine 08/07/2024 12:00 AM EDT Essential (primary) hypertension Unspecified abdominal hernia without obstruction or gangrene Other retirement (current) drug therapy Encounter for screening for malignant neoplasm of prostate STEWART URINE CULTURE TUBE Routine 08/07/2024 12:00 AM EDT Essential (primary) hypertension Unspecified abdominal hernia without obstruction or gangrene Other retirement (current) drug therapy Encounter for screening for malignant neoplasm of prostate SST - GOLD Routine 08/07/2024 12:00 AM EDT Essential (primary) hypertension Unspecified abdominal hernia without obstruction or gangrene Other long term care social worker (current) drug therapy Encounter for screening for malignant neoplasm of prostate DRUG ABUSE SCREEN 8A PANEL, URINE Routine 08/07/2024 12:00 AM EDT Essential (primary) hypertension Unspecified abdominal hernia without obstruction or gangrene Other long term care social worker (current) drug therapy Encounter for screening for malignant neoplasm of prostate CBC WITH AUTO DIFFERENTIAL Routine 08/07/2024 12:00 AM EDT Essential (primary) hypertension Unspecified abdominal hernia without obstruction or gangrene Other retirement (current) drug therapy Encounter for screening for malignant neoplasm of prostate LAVENDER - EDTA Routine 08/07/2024 12:00 AM EDT Essential (primary) hypertension Unspecified abdominal hernia without obstruction or gangrene Other long term care social worker (current) drug therapy Encounter for screening for malignant neoplasm of prostate VITAMIN D 25 HYDROXY Routine 08/07/2024 12:00 AM EDT Essential (primary) hypertension Unspecified abdominal hernia without obstruction or gangrene Other retirement (current) drug therapy Encounter for screening for malignant neoplasm of prostate URINALYSIS WITH REFLEX MICROSCOPIC AND CULTURE Routine 08/07/2024 12:00 AM EDT Essential (primary) hypertension Unspecified abdominal hernia without obstruction or gangrene Other long term care social worker (current) drug therapy Encounter for screening for malignant neoplasm of prostate CBC AND DIFFERENTIAL Routine 08/07/2024 12:00 AM EDT Essential (primary) hypertension Unspecified abdominal hernia without obstruction or gangrene Other retirement (current) drug therapy Encounter for screening for malignant neoplasm of prostate C-REACTIVE PROTEIN Routine 08/07/2024 12 :00 AM EDT Essential (primary) hypertension Unspecified abdominal hernia without obstruction or gangrene Other retirement (current) drug therapy Encounter for screening for malignant neoplasm of prostate THYROID STIMULATING HORMONE Routine 08/07/2024 12:00 AM EDT Essential (primary) hypertension Unspecified abdominal hernia without obstruction or gangrene Other retirement (current) drug therapy Encounter for screening for malignant neoplasm of prostate THYROXINE FREE Routine 08/07/2024 12:00 AM EDT Essential (primary) hypertension Unspecified abdominal hernia without obstruction or gangrene Other retirement (current) drug therapy Encounter for screening for malignant neoplasm of prostate MAGNESIUM Routine 08/07/2024 12:00 AM EDT Essential (primary) hypertension Unspecified abdominal hernia without obstruction or gangrene Other long term care social worker (current) drug therapy Encounter for screening for malignant neoplasm of prostate HEMOGLOBIN A1C Routine 08/07/2024 12:00 AM EDT Essential (primary) hypertension Unspecified abdominal hernia without obstruction or gangrene Other long term care social worker (current) drug therapy Encounter for screening for malignant neoplasm of prostate VITAMIN B12 Routine 08/07/2024 12:00 AM EDT Essential (primary) hypertension Unspecified abdominal hernia without obstruction or gangrene Other retirement (current) drug therapy Encounter for screening for malignant neoplasm of prostate COMPREHENSIVE METABOLIC PANEL Routine 08/07/2024 12:00 AM EDT Essential (primary) hypertension Unspecified abdominal hernia without obstruction or gangrene Other long term care social worker (current) drug therapy Encounter for screening for malignant neoplasm of prostate documented in this encounter Results * Urinalysis with reflex microscopic and culture (08/07/2024 12:00 AM EDT) [facility] Specific [place] Urine 1.010 1.003 - 1.030 LAB URINALYSIS - AUTOMATED METHOD 08/07/2024 7:[address] [facility] pH, Urine 7.0 5.0 - 8.0 pH LAB URINALYSIS - AUTOMATED METHOD 08/07/2024 7:[address] [facility] Leukocytes, Urine Negative Negative LAB URINALYSIS - AUTOMATED METHOD 08/07/2024 7:53 PM EDT [facility] Nitrite, Urine Negative Negative LAB URINALYSIS - AUTOMATED METHOD 08/07/2024 7:53 PM EDT [facility] Protein, Urine Negative <=Trace mg/dL LAB URINALYSIS - AUTOMATED METHOD [facility]/07[facility]24 [facility] Glucose, Urine Negative Negative mg/dL LAB URINALYSIS - AUTOMATED METHOD 08/07/2024 7:[facility] Ketones, Urine Negative Negative mg/dL LAB URINALYSIS - AUTOMATED METHOD 08/07/2024 7:[address] [facility] Urobilinogen, Urine 0.2 0.2 - 1.0 mg/dL LAB URINALYSIS - AUTOMATED METHOD 08/07/2024 7:[address] [facility] Bilirubin, Urine Negative Negative LAB URINALYSIS - AUTOMATED METHOD 08/07/2024 7:53 [facility] Blood, Urine Negative Negative LAB URINALYSIS - AUTOMATED METHOD 08/07/2024 7:[address] [facility] Urine Urine specimen obtained by clean catch procedure / Unknown 08/07/2024 08/07/2024 7:11 PM EDT Vikram AMARO LAB URINE ORDERABLES Final Res ult [facility] [address] [place] [address], * Stewart urine culture tube (08/07/2024 12:00 AM EDT) Extra Tube Hold for add-ons. 08/07/2024 9:01 PM EDT [facility] Comment:Auto resulted. Urine Urine specimen obtained by clean catch procedure / Unknown 08/07/2024 08/07/2024 7:05 PM EDT Vikram AMARO LAB URINE ORDERABLES Final Res ult Performing Organization Address [facility]/ZIP Co de Phone Number [facility] [address] [place] [address], [place] [phone] * Lavender tube (08/07/2024 12:00 AM EDT) Extra Tube Hold for add-ons. 08/07/2024 9:01 PM EDT [facility] Comment:Auto resulted. Blood Venous blood specimen / Unknown 08/07/2024 08/07/2024 7:05 PM EDT Vikram AMARO LAB BLOOD ORDERABLES Final Res ult Performing Organization Address [facility] Co de Phone Number [facility] [address] [place] [address], [place] [phone] * SST tube (08/07/2024 12:00 AM EDT) Extra Tube Hold for add-ons. 08/07/2024 9:01 PM EDT [facility] Comment:Auto resulted. Blood Venous blood specimen / Unknown 08/07/2024 08/07/2024 7:05 PM EDT Vikram AMARO LAB BLOOD ORDERABLES Final Res ult Performing Organization Address City/[facility]/ZIP Co de Phone Number [facility] [address] [place] [address], [place] [phone] * (ABNORMAL) CBC auto differential (08/07/2024 12:00 AM EDT) WBC 5.1 4.8 - 10.8 K/[facility] LAB HEMETOLOGY METHOD 08/07/2024 7:28 PM EDT [facility] RBC 4.80 4.50 - 5.50 M/mcL LAB HEMETOLOGY METHOD 08/07/2024 7:28 PM EDT [facility] Hemoglobin 14.1 13.5 - 17.5 g/dL LAB HEMETOLOGY METHOD 08/07/2024 7:[address] [facility] Hematocrit 42.6 42.0 - 54.0 % LAB HEMETOLOGY METHOD 08/07/2024 7:[address] [facility] MCV 89.5 79.0 - 98.0 FL LAB HEMETOLOGY METHOD 08/07/2024 7:28 [facility] MCH 29.6 27.0 - 32.0 pcg LAB HEMETOLOGY METHOD 08/07/2024 7:[address] [facility] MCHC 33.1 32.0 - 37.0 g/dL LAB HEMETOLOGY METHOD 08/07/2024 7:[address] [facility] RDW 12.7 11.0 - 15.0 % LAB HEMETOLOGY METHOD 08/07/2024 7:[address] [facility] Platelets 162 130 - 400 K/mcL LAB HEMETOLOGY METHOD 08/07/2024 7:[address] [facility] MPV 11.5(H) 7.0 - 11.0 FL LAB HEMETOLOGY METHOD 08/07/2024 7:[address] [facility] NRBC 0.0 <1.0 % LAB HEMETOLOGY METHOD 08/07/2024 7:[address] [facility] NRBC Absolute 0.00 <0.10 K/mcL LAB HEMETOLOGY METHOD 08/07/2024 7:28 PM [facility] Neutrophils Relative 48.3 % LAB HEMETOLOGY METHOD 08/07/2024 7:[address] [facility] Lymphocytes Relative 36.5 % LAB HEMETOLOGY METHOD 08/07/2024 7:28 PM EDT [facility] Monocytes Relative 7.7 % LAB HEMETOLOGY METHOD 08/07/2024 7:28 PM EDT [facility] Eosinophils Relative 6.7 % LAB HEMETOLOGY METHOD 08/07/2024 7:28 [facility] Basophils Relative 0.6 % LAB HEMETOLOGY METHOD 08/07/2024 7:28 PM EDT [facility] Immature Granulocytes Relative 0.2 % LAB HEMETOLOGY METHOD 08/07/2024 7:28 PM EDT [facility] Neutrophils Absolute 2.45 1.50 - 7.00 K/mcL LAB HEMETOLOGY METHOD 08/07/2024 7:28 [facility] Lymphocytes Absolute 1.85 1.00 - 5.00 K/mcL LAB HEMETOLOGY METHOD 08/07/2024 7:28 PM EDT [facility] Monocytes Absolute 0.39 0.20 - 1.00 K/mcL LAB HEMETOLOGY METHOD 08/07/2024 7:28 PM EDT [facility] Eosinophils Absolute 0.34 0.00 - 0.50 K/mcL LAB HEMETOLOGY METHOD 08/07/2024 7:28 [facility] Basophils Absolute 0.03 0.00 - 0.20 K/mcL LAB HEMETOLOGY METHOD 08/07/2024 7:28 [facility] Immature Granulocytes Absolute 0.01 0.00 - 0.03 K/mcL LAB HEMETOLOGY METHOD 08/07/2024 7:28 PM EDT [facility] Blood Venous blood specimen / Unknown 08/07/2024 08/07/2024 7:05 PM EDT us Vikram AMARO LAB BLOOD ORDERABLES Final Res ult [facility] [address] [place] [address], [place] [phone] * Vitamin D 25 hydroxy (08/07/2024 12:00 AM EDT) Vit D, 25-Hydroxy 66.8 30.0 - 80.0 ng/mL LAB CHEMISTRY METHOD 08/07/2024 9:11 PM EDT [facility] Blood Venous blood specimen / Unknown 08/07/2024 08/07/2024 7:05 PM EDT us Vikram AMARO LAB BLOOD ORDERABLES Final Res ult [facility] [address] [place] [address], [place] [phone] * Thyroid stimulating hormone (08/07/2024 12:00 AM EDT) Pathologist [facility] TSH 1.14 0.40 - 4.00 mcIU/mL LAB CHEMISTRY METHOD 08/07/2024 9:50 PM EDT [facility] Blood Venous blood specimen / Unknown 08/07/2024 08/07/2024 7:05 PM EDT us Vikram AMARO LAB BLOOD ORDERABLES Final Res ult [facility] [address] [place] [address], [place] [phone] * Prostate specific antigen screen (08/07/2024 12:00 AM EDT) PSA 1.33 0.00 - 4.00 ng/mL LAB CHEMISTRY METHOD 08/07/2024 9:12 PM EDT [facility] Blood Venous blood specimen / Unknown 08/07/2024 08/07/2024 7:05 PM EDT Narrative [facility] - 08/07/2024 9:12 PM EDT The Siemens Advia Centaur Chemiluminescent Immunoassay is used. Results obtained with different assay methods or kits cannot be used interchangeably. Results cannot be interpreted as absolute evidence of the presence or absence of malignant disease. Vikram AMARO LAB BLOOD ORDERABLES Final Res ult Performing Organization Address [facility]/ZIP Co de Phone Number [facility] [address] [place] [address], [place] [phone] * Magnesium (08/07/2024 12:00 AM EDT) Magnesium 2.1 1.9 - 2.6 mg/dL LAB CHEMISTRY METHOD 08/07/2024 8:48 PM EDT [facility] Blood Venous blood specimen / Unknown 08/07/2024 08/07/2024 7:05 PM EDT Vikram AMARO LAB BLOOD ORDERABLES Final Res ult Performing Organization Address [facility] Co de Phone Number [facility] [address] [place] [address], [place] [phone] * (ABNORMAL) Hemoglobin A1c (08/07/2024 12:00 AM EDT) Hemoglobin A1C 6.5(H) <6.5 % LAB CHEMISTRY METHOD 08/07/2024 9:36 PM EDT [facility] Mean Bld Glu Estim. 140 mg/dL LAB CHEMISTRY METHOD 08/07/2024 9:36 PM EDT [facility] Blood Venous blood specimen / Unknown 08/07/2024 08/07/2024 7:05 PM EDT Vikram AMARO LAB BLOOD ORDERABLES Final Res ult Performing Organization Address [facility]/ZIP Co de Phone Number [facility] [address] [place] [address], [place] [phone] * Thyroxine free (08/07/2024 12:00 AM EDT) Free T4 1.20 0.70 - 1.80 ng/dL LAB CHEMISTRY METHOD 08/07/2024 9:11 PM EDT [facility] Blood Venous blood specimen / Unknown 08/07/2024 08/07/2024 7:05 PM EDT us Vikram AMARO LAB BLOOD ORDERABLES Final Res ult [facility] [address] [place] [address], * C-reactive protein (08/07/2024 12:00 AM EDT) [facility] C-Reactive Protein <0.29 <=0.50 mg/dL LAB CHEMISTRY METHOD 08/07/2024 8:48 PM EDT [facility] Blood Venous blood specimen / Unknown 08/07/2024 08/07/2024 7:05 PM EDT us Vikram AMARO LAB BLOOD ORDERABLES Final Res ult [facility] [address] [place] [address], [place] [phone] * (ABNORMAL) Vitamin B12 (08/07/2024 12:00 AM EDT) Pathologist [facility] Vitamin B-12 939(H) 250 - 900 pcg/mL LAB CHEMISTRY METHOD 08/07/2024 9:16 PM EDT [facility] Blood Venous blood specimen / Unknown 08/07/2024 08/07/2024 7:05 PM EDT us Vikram AMARO LAB BLOOD ORDERABLES Final Res ult [facility] [address] [place] [address], * (ABNORMAL) Drug abuse screen 8a panel, urine (08/07/2024 12:00 AM EDT) Amphetamine Screen, Ur Negative Negative LAB CHEMISTRY METHOD 5 8:55 PM EDT [facility] Comment:Certain OTC medicati ons containing ephedrine, phenylephrine, pseudoephedrine and phenylpropanolamine can cause false positive results. Barbiturate Screen, Ur Negative Negative LAB CHEMISTRY METHOD 5 8:55 PM EDT [facility] Benzodiazepine Screen, Ur Positive(A ) Negative LAB CHEMISTRY METHOD 5 8:55 PM EDT [facility] Cocaine Screen, Ur Negative Negative LAB [facility]STRY [facility] 5 8:[facility] Opiate Screen, Ur Negative Negative LAB CHEMISTRY METHOD 5 8:[address] [facility] Cannabinoid (THC) Screen, Ur Negative Negative LAB CHEMISTRY METHOD 5 8:55 PM T [facility] Comment:Specimens from patie nts taking pantoprazole sodium (Protonix) have been shown to produce false positive results. Oxycodone Screen, Ur Negative Negative LAB CHEMISTRY METHOD 5 8:55 PM EDT [facility] Fentanyl, Ur Negative Negative LAB CHEMISTRY METHOD 5 8:[address] [facility] Urine Urine specimen obtained by clean catch procedure / Unknown 08/07/2024 08/07/2024 7:05 PM EDT Narrative [facility] - 08/07/2024 8:55 PM EDT Assay [...] AMARO LAB URINE ORDERABLES Final Res ult [facility] [address] [place] [address], [place] [phone] * (ABNORMAL) Comprehensive metabolic panel (08/07/2024 12:00 AM EDT) Sodium 140 133 - 145 mmol/L LAB CHEMISTRY METHOD 08/07/2024 9:[address] [facility] Potassium 4.1 3.5 - 5.5 mmol/L LAB CHEMISTRY METHOD 08/07/2024 9:[address] [facility] Chloride 109 96 - 110 mmol/L LAB CHEMISTRY METHOD 08/07/2024 9:[address] [facility] CO2 25 21 - 32 mmol/L LAB CHEMISTRY METHOD 08/07/2024 9:[address] [facility] Anion Gap 6 3 - 11 LAB CHEMISTRY METHOD 08/07/2024 9:[address] [facility] Glucose 103(H) 70 - 100 mg/dL LAB CHEMISTRY METHOD 08/07/2024 9:[address] [facility] BUN 20 5 - 25 mg/dL LAB CHEMISTRY METHOD 08/07/2024 9:[address] [facility] Creatinine 1.06 0.70 - 1.30 mg/dL LAB CHEMISTRY METHOD 08/07/2024 9:[address] [facility] eGFR 73 >=60 mL/min/1. 73m2 LAB CHEMISTRY METHOD 08/07/2024 9:[address] [facility] Comment:Calculation based on the Chronic Kidney Disease Epidemiology Collaboration (CKD-EPI) equation refit without adjustment for race. BUN/Creatinine Ratio 18.9 LAB CHEMISTRY METHOD 08/07/2024 9:[address] [facility] Calcium 8.9 8.5 - 10.5 mg/dL LAB CHEMISTRY METHOD 08/07/2024 9:[address] [facility] AST (SGOT) 20 10 - 42 unit/L LAB CHEMISTRY METHOD 08/07/2024 9:[address] [facility] ALT (SGPT) 27 10 - 60 unit/L LAB CHEMISTRY METHOD 08/07/2024 9:[address] [facility] Alkaline Phosphatase 58 42 - 121 unit/L LAB CHEMISTRY METHOD 08/07/2024 9:[address] [facility] Total Protein 7.3 6.0 - 8.0 g/dL LAB CHEMISTRY METHOD 08/07/2024 9:[address] [facility] Albumin 4.1 3.2 - 5.0 g/dL LAB CHEMISTRY METHOD 08/07/2024 9:[address] [facility] Total Bilirubin 0.6 0.0 - 1.4 mg/dL LAB CHEMISTRY METHOD 08/07/2024 9:[address] [facility] Blood Venous blood specimen / Unknown 08/07/2024 08/07/2024 7:05 PM EDT us Vikram AMARO LAB BLOOD ORDERABLES Final Res ult [facility] [address] [place] [address], [place] [phone] documented in this encounter Visit Diagnoses Diagnosis Essential (primary) hypertension Unspecified essential hypertension Unspecified abdominal hernia without obstruction or gangrene Other retirement (current) drug therapy Encounter for screening for malignant neoplasm of prostate documented in this encounter Care Teams Shop Director Relationship Specialty Start Date End Date Physician, Pcp Unknown PCP - General 08/08/24 documented as of this encounter
--- OUTSIDE RECORDS SUMMARY | 2024-12-30 15:23 | XMS_ITS | Encounter Summary ---
Author Organization [employer] Address [address] [facility] [address] [facility] [address] [place] [address] Care Team Providers Care Furnace Charger Name Role Phone Kd Eaton DMD Unavailable Reason for Visit * Reason Onset Date Comments emergency dental insurance 03/22/2024 Encounter Details Date Type Department Care Team (Late Contact Info) Description 03/22/2024 Telephone [facility] [address] [place] [address] Kd Eaton DMD [address] [place] [address] emergency dental insurance Social History Tobacco Use [...] Care Team (Late Contact Info) Description 01/27/2025 12:45 PM EDT Office Visit [facility] [address] [place] [address] Maribel Blanco documented as of this encounter Visit Diagnoses Not on filedocumented in this encounter Care Teams Furnace Charger Relationship Specialty Start Date End Date Kd Eaton DMD [address] [place] [address] Dental Outside Sales Advertising Executive 04/01/24 documented as of this encounter
--- OUTSIDE RECORDS SUMMARY | 2024-12-30 15:23 | XMS_ITS | Encounter Summary ---
Author Organization [facility] Address [address] [facility] [address] [place] [address] Phone Care Team Providers Care Cryptographic Center Specialist Name Role Phone Dorian Villalobos MD Unavailable [phone] Vladimir Jones MD Unavailable [phone] Karen Love MD Primary Care Provide r Roger Benedict MD Primary Care Provider + Encounter Details Date Type Department Care Team (Latest Contact Info) Description 06/17/2020 Transcribe Orders [facility] Laboratory [address] [place] [address] Karen Love MD [address] [place] [address] Essential hypertension, malignant (Primary Dx); Anxiety hyperventilation [...] 12:40 PM EDT Luz Lin RN * [place] Suicide Severity Rating Scale (Screener/Recent Self-Report) Question [...] URINE MICROALBUMIN <1.2 0 - 2.3 mg/dL [facility] URINE CREATININE 61 mg/dL [facility] MICROALB/CRE RATIO NOT CALCULATED 0 - 20 mg/g Cre [facility] Comment:due to Microalbumin <1.2 Urine (Urine) 06/17/2020 2:2 4 PM EDT 06/17/2020 2:30 PM EDT us Karen Love MD URINE ORDERABLES Мария l Result Performing Organization Address [facility]/ZIP Co de Phone Number [address] [address] * (ABNORMAL) Hemoglobin A1c (06/17/2020 2:24 PM EDT) HEMOGLOBIN A1C 6.1(H) 4.3 - 5.8 % [facility] Blood 06/17/2020 2:24 PM EDT 06/17/2020 2:29 PM EDT us Karen Love MD LAB BLOOD ORDERABLES Final Result Performing Organization Address City/[facility]/ZIP Co de Phone Number [address] [address] * TSH with reflex (06/17/2020 2:24 PM EDT) TSH 1.14 0.27 - 4.20 uIU/mL [facility] Blood 06/17/2020 2:24 PM EDT 06/17/2020 2:29 PM EDT Karen Love MD LAB BLOOD ORDERABLES Final Result [address] [address] * PSA (screening) (06/17/2020 2:24 PM EDT) PSA 1.57 0 - 4.00 ng/mL [facility] Blood 06/17/2020 2:24 PM EDT 06/17/2020 2:30 PM EDT Karen Love MD LAB BLOOD ORDERABLES Final Result Performing Organization Address City/[facility]/ZIP Co de Phone Number [address] [address] * (ABNORMAL) Lipid panel (06/17/2020 2:24 PM EDT) HDL 59 mg/dL [facility] Comment: Interpretation <40 mg/dL: Low HDL cholesterol (major risk factor for CHD) Greater than or equal to 60 mg/dL: High HDL cholesterol ( negative risk factor for CHD) HDL - cholesterol is affected by a number of factors, e.g. smoking, excerise, hormones, sex and age. CHOLESTEROL 196 0 - 240 mg/dL [facility] TRIGLYCERIDES 106 30 - 160 mg/dL [facility] LDL 116 50 - 129 mg/dL [facility] Comment: LDL levels in terms of risk for coronary heart disease: <100 mg/dL: Optimal 100-129 mg/dL: Near or above optimal 130-159 mg/dL: Borderline high 160-189 mg/dL: High >190 mg/dL: Very High CARDIAC RISK RATIO 3.3(L) 3.4 - 5.0 [facility] Blood 06/17/2020 2:24 PM EDT 06/17/2020 2:29 PM EDT us Karen Love MD LAB BLOOD ORDERABLES Final Result Performing Organization Address City/[facility] Co de Phone Number [address] [address] * (ABNORMAL) Comprehensive metabolic panel (06/17/2020 2:24 PM EDT) SODIUM 140 133 - 146 mmol/L [facility] POTASSIUM 4.7 3.3 - 5.1 mmol/L [facility] CHLORIDE 104 96 - 108 mmol/L [facility] CO2 27 21 - 35 mmol/L [facility] BUN 19 6 - 19 mg/dL [facility] CREATININE 0.90 0.5 - 1.5 mg/dL [facility] GLUCOSE 105(H) 70 - 99 mg/dL [facility] ALBUMIN 4.6 3.9 - 4.8 g/dL [facility] TOTAL PROTEIN 7.4 6.5 - 8.0 g/dL [facility] CALCIUM 9.5 8.4 - 10.3 mg/dL [facility] ALKALINE PHOSPHATASE 52 39 - 117 U/L [facility] TOTAL BILIRUBIN 0.4 0.0 - 1.2 mg/dL [facility] AST 24 0 - 37 U/L [facility] ALT 20 0 - 40 U/L [facility] GLOBULIN 2.8 1 - 4.8 g/dL [facility] EGFR 85 >59 mL/min/1.7 3m2 [facility] Comment:Estimated glomerular filtration rate calculated using the CKD-EPI equation. ANION GAP 14 10 - 20 mmol/L [facility] Blood 06/17/2020 2:24 PM EDT 06/17/2020 2:29 PM EDT us Karen Love MD LAB BLOOD ORDERABLES Final Result [facility] [address] [place] [address] * CBC and differential (06/17/2020 2:24 PM EDT) WBC 4.71 4.00 - 11.00 K/uL [facility] RBC 4.70 3.90 - 5.69 M/uL [facility] HGB 14.4 12.4 - 17.3 g/dL [facility] HCT 42.0 37.0 - 51.0 % [facility] PLT 154 140 - 430 K/uL [facility] MCV 89.4 78.0 - 97.0 fL [facility] MCH 30.6 25.0 - 33.0 pg [facility] MCHC 34.3 32.0 - 36.0 g/dL [facility] RDW 12.1 11.0 - 15.0 % [facility] MPV 11.3 8.4 - 12.8 fl [facility] NRBC 0.00 0 /100 WBCs [facility] ABSOLUTE NRBC 0.00 0 K/uL [facility] DIFF METHOD Auto [facility] NEUTS 50.2 43.0 - 75.0 % [facility] LYMPHS 33.5 18.2 - 47.4 % [facility] MONOS 7.6 4.00 - 11.00 % [facility] EOS 7.4 0.0 - 8.0 % [facility] BASOS 1.1 0.0 - 2.0 % [facility] Granulocytes, immature (%) 0.2 0.0 - 0.9 % [facility] ABSOLUTE NEUTS 2.36 1.80 - 7.70 K/uL [facility] ABSOLUTE LYMPHS 1.58 1.00 - 3.10 K/uL [facility] ABSOLUTE MONOS 0.36 0.20 - 0.80 K/uL [facility] ABSOLUTE EOS 0.35 0.00 - 0.80 K/uL [facility] ABSOLUTE BASOS 0.05 0.00 - 0.09 K/uL [facility] Granulocytes, immature 0.01 0.00 - 0.05 K/uL [facility] Blood 06/17/2020 2:24 PM EDT 06/17/2020 2:29 PM EDT Karen Love MD LAB BLOOD ORDERABLES Final Result [facility] [address] [place] [address] documented in this encounter Visit Diagnoses Diagnosis Essential hypertension, malignant- Primary Anxiety hyperventilation Respiratory malfunction arising from mental factors documented in this encounter Care Teams Cryptographic Center Specialist Relationship Specialty Start Date End Date Karen Love MD [address] [place] [address] PCP - General Internal Medicine 05/29/20 12/21/21 Roger eBnedict MD [address] [place] [address] PCP - General Internal Medicine 12/22/21 Dorian Villalobos MD [address] [place] [address] [address] [place] [address] [email or web address] Historical LMR Provider 01/18/17 04/10/21 Vladimir Jones MD [address] [place] [address] Historical LMR Provider 01/18/17 documented as of this encounter Additional Source Comments The information contained in this document represents components of the legal health record. It is not the complete legal health record.[facility]
== END 2024-12-30 14:20 | disposition home or self-care (01) ==
LOC: HO.HCS 13:45
PROVIDERS: PCP Internal Medicine; Visit Provider Nurse Practitioner Family
DX: R93.1 Abnormal findings on diagnostic imaging of heart and coronary circulation (principal); I49.1 Atrial premature depolarization; I49.3 Ventricular premature depolarization; I10 Essential (primary) hypertension; I77.810 Thoracic aortic ectasia
CPT/HCPCS: 99214; G2211

== ENCOUNTER → 2024-12-30 13:45 | Outpatient (BNVA) | payer OTHER, SELFPAY | PROVIDERS: PCP Internal Medicine; Visit Provider Nurse Practitioner Family | DX: I49.1 Atrial premature depolarization (principal); R93.1 Abnormal findings on diagnostic imaging of heart and coronary circulation; I49.3 Ventricular premature depolarization; I10 Essential (primary) hypertension; I77.810 Thoracic aortic ectasia | CPT/HCPCS: 99212 ==

== ENCOUNTER 2025-02-19 09:42 | Outpatient (AMB) | payer OTHER, SELFPAY ==
--- OUTSIDE RECORDS SUMMARY | 2003-08-25 13:45 | XMS_ITS | Continuity of Care Document ---
Author Organization [facility] Address [address] [place] [phone] Phone Care Team Providers Care Information Services Consultant Name Role Phone Unavailable Unavailable Unavailable Advance Directives Directive Yes / No Effective Date File Name No Information Encounters Encounter Description Practice Location Reason(s) For Visit Diagnoses Date Provider Encounter Disposition [facility], [address] [place] [address], [place], [place], [id number], [place] tel:[phone] [facility] No Information 4 No Information Family History Family Member Type Diagnosis Age At Onset No Information Payers Payer name Insurance type Identifiers Authorization(s) Com ments No Information Social History Type Description Quantity Date Captured Comments Sex Male Smoking Status No Information Current Gender Male (finding) Chief Complaint And Reason For Visit No Information History Of Present Illness Encounter Date Complaint History Of Prese nt Illness No Information Functional Status Date Description Comments No Information Instructions Date Instruction Additional Infor mation No Information Assessments Type Assessment Date No Information
--- OUTSIDE RECORDS SUMMARY | 2003-08-25 13:45 | XMS_ITS | Continuity of Care Document ---
Author Organization [facility] [place] [address] [place] [phone] Phone Care Team Providers Care Ham Clerk Name Role Phone Unavailable Unavailable Unavailable Advance Directives Directive Yes / No Effective Date File Name No Information Encounters Encounter Description Practice Location Reason(s) For Visit Diagnoses Date Provider Encounter Disposition [facility], [address] [place] [address], [place], [place], [id number], [place] tel:[phone] [facility] No Information 4 No Information Family History [...]
--- OUTSIDE RECORDS SUMMARY | 2003-08-25 13:45 | XMS_ITS | Continuity of Care Document ---
Author Organization [facility] Address [address] [place] [phone] Phone Care Team Providers Care Tube Tester Name Role Phone Unavailable Unavailable Unavailable Advance Directives Directive Yes / No Effective Date File Name No Information Encounters Encounter Description Practice Location Reason(s) For Visit Diagnoses Date Provider Encounter Disposition [facility], [address] [place] [address], [place], [place], [id number], [place] tel:[phone] [facility] No Information 4 No Information Family [...]
--- OUTSIDE RECORDS SUMMARY | 2003-08-25 13:45 | XMS_ITS | Continuity of Care Document ---
Author Organization [facility] Address [address] [place] [phone] Phone Care Team Providers Care Supervisor Files Name Role Phone Unavailable Unavailable Unavailable Advance Directives Directive Yes / No Effective Date File Name No Information Encounters Encounter Description Practice Location Reason(s) For Visit Diagnoses Date Provider Encounter Disposition [facility], [address] [place] [address], [place], [place], [id number], [place] tel:[phone] [facility] No Information 4 No Information [...]
--- OUTSIDE RECORDS SUMMARY | 2003-08-25 13:45 | XMS_ITS | Continuity of Care Document ---
Author Organization [facility] Address [address] [place] [phone] Phone Care Team Providers Care College Athletic Director Name Role Phone Unavailable Unavailable Unavailable Advance Directives Directive Yes / No Effective Date File Name No Information Encounters Encounter Description Practice Location Reason(s) For Visit Diagnoses Date Provider Encounter Disposition [facility], [address] [place] [address], [place], [place], [id number], [place] tel:[phone] [facility] No Information 4 No Information [...]
--- OUTSIDE RECORDS SUMMARY | 2003-08-25 13:45 | XMS_ITS | Continuity of Care Document ---
Author Organization [facility] Address [address] [place] [phone] Phone Care Team Providers Care Senior Sales Consultant Name Role Phone Unavailable Unavailable Unavailable Advance Directives Directive Yes / No Effective Date File Name No Information Encounters Encounter Description Practice Location Reason(s) For Visit Diagnoses Date Provider Encounter Disposition [facility], [address] [place] [address], [place], [place], [id number], [place] tel:[phone] [facility] No Information 4 No Information Family [...]
--- NOTE | 2025-02-19 09:50 | A.OFFVIS_ITS ---
Vital Signs 02/19/25 10:18 Height 5 ft 9 in Weight 204 lb BMI 30.1 BP 140/70 H Blood Pressure Location Rt brachial Position Sitting Pulse 98 Intake Visit Reasons: inguinal hernia Intake Note: This patient was referred by Dr. Doe for an assessment for right inguinal hernia. Pt c/o; NO DI ordered by pcp for hernia, right inguinal region, reports discomfort, denies changes to bowel habits. Medical Hx: *cardiovascular disease ([facility]) Testin12/03/2024; myocardial perfusion scan nuc med ([facility]) 11/14/2024: Holter monitor ([facility]) 11/14/2024: Transthoracic Ecocardiogram ([facility]) Residential Leasing Manager Required: No Accompanied by: Self / Same As Patient Allergies amoxicillin Allergy (Intermediate, Verified 02/19/25 10:27) Facial Swelling clindamycin Adverse Reaction (Intermediate, Verified 02/19/25 10:27) Blister doxycycline Adverse Reaction (Mild, Verified 02/19/25 10:27) Blister Medication List - Last Reconciled 02/19/25 by Homero Anaya MD alprazolam 0.5 mg PO DAILY lisinopril 5 mg PO DAILY HPI HPI inguinal hernia: Details: 79-year-old male referred for a right inguinal hernia. He said he has noticed this reducible mass on his right groin for over 5 years now. However says that this has been increasing in size and has been causing more discomfort. He therefore wants this repaired He said he had a left inguinal hernia repaired more than 10 years ago He says he in good health overall. He denies GI complaints. [facility] Medical History (Updated 02/19/25 @ 10:41 by Homero Anaya MD) Right inguinal hernia Macular degeneration of left eye Thyroiditis Primary hypertension Surgical History Hx of partial adrenalectomy History of cataract surgery Family History Father Heart attack Cerebral hemorrhage Social History Alcohol intake: current Alcohol type: beer and wine Patient Tobacco Use Status: Never used Tobacco Review of Systems Const Denies chills and Denies fever(s) Card Denies chest pain, Denies dyspnea and Denies dyspnea on exertion Resp Denies cough, Denies dyspnea and Denies dyspnea on exertion GI Denies hematochezia and Denies change in bowel habits Denies hematuria and Denies difficulty urinating Musc Denies back pain and Denies limited range of motion Neuro Denies focal weakness and Denies convulsions Psych Denies depression and Denies mood swings Physical Exam Vital Signs: Last Vital Signs Pulse 98 02/19/25 10:18 BP 140/70 H 02/19/25 10:18 BMI result Body Mass Index 30.1 Const General: comfortable and no acute distress Orientation/consciousness: patient oriented x3 Neck Neck: Yes no lymphadenopathy Resp Auscultation: clear to auscultation bilaterally Cardio Rhythm: regular rhythm GI Other: Reducible right inguinal hernia Palpation (GI): Soft to palpation, nontender and no guarding Neuro General: patient oriented x3 Assessment & Plan Assessment & Plan (1) Right inguinal hernia: Code(s): K40.90 - Unilateral inguinal hernia, without obstruction or gangrene, not specified as recurrent Category: Medical Plan: He wants to proceed with the repair. I explained to him the technique of repair of the right inguinal hernia with mesh placement. I reviewed the risks including but not limited to bleeding, infections, injury to other organs including bowel, vas deferens, recurrence, postop pain, as well as the benefits and alternatives. I explained to him what to expect postoperatively He says he understands and wants to proceed. Coding Level of Care Code New Pt Level 3 (79531) Diagnoses Right inguinal hernia K40.90
[2025-02-19 10:18] VITALS: BP 140/70; PULSE 98; BMI 30.1
--- OUTSIDE RECORDS SUMMARY | 2025-02-19 17:58 | XMS_ITS | Clinical Summary ---
Author Organization [facility] Address [address] [place] [address] Phone Care Team Providers Care Tar Kettle Runner Name Role Phone Vladimir Jones MD Unavailable [phone] Roger Benedict MD Primary Care Provider [...] as needed for anxiety. 36 tablet Active Immunizations Immunization Administration Dates Next Due Tdap [...] VACCINES (50+ years) (2 of 2 - PCV20 or PCV21) 12/01/2020 12/02/2019 RSV VACCINE (1 - 1-dose 75+ series) 09/12/2022 INFLUENZA VACCINE (#1) 2024 9, 12/05/2017, 05/05/2016, Additional history exists COVID-19 VACCINE (2 - 2024- season) 2024 07/29/2020 CREATININE LEVEL 10/07/2025 10/07/2024, , 06/17/2020, Additional history exists POTASSIUM LEVEL 10/07/2025 10/07/2024, 07/02, 06/17/2020, Additional history exists LIPID PANEL 10/07/2029 10/07/2024, 06/01, 06/03/2019, Additional history exists Adult Td,Tdap Booster 08/01/2030 08/01/2020 SMOKING STATUS SCREENING (Once After 26 Yrs) Completed 06/17/2020 HIB VACCINES Aged Out No longer eligi ble based on patient's age to complete this topic IPV VACCINES Aged Out No longer eligi ble based on patient's age to complete this topic MENINGOCOCCAL VACCINES (ACWY) Aged Out No longer eligible based on patient's age to complete this topic MENINGOCOCCAL VACCINES (B) Aged Out N o longer eligible based on patient's age to complete this topic Medical Devices Not on file Procedures Procedure Name Priority Date/Time Associated Diagnosis Comments LIPID PANEL Routine 10/07/2024 12:33 PM EDT Avulsion of cervical nerve root, initial encounter COMPREHENSIVE METABOLIC PANEL (CMP) Routine 10/07/2024 12:33 PM EDT Avulsion of cervical nerve root, initial encounter from Last 3 Months or Most Recently Relevant to Health Maintenance Results * (ABNORMAL) Comprehensive metabolic panel (10/07/2024 12:33 PM EDT) SODIUM 140 133 - 146 mmol/L [facility] POTASSIUM 4.5 3.3 - 5.1 mmol/L [facility] Comment:Specimen slightly he molyzed, result may be falsely elevated. CHLORIDE 105 96 - 108 mmol/L [facility] CO2 23 21 - 35 mmol/L [facility] BUN 20(H) 6 - 19 mg/dL [facility] CREATININE 1.00 0.5 - 1.5 mg/dL [facility] GLUCOSE 111(H) 70 - 99 mg/dL [facility] ALBUMIN 4.6 3.9 - 4.8 g/dL [facility] TOTAL PROTEIN 7.3 6.5 - 8.0 g/dL [facility] CALCIUM 9.6 8.4 - 10.3 mg/dL [facility] ALKALINE PHOSPHATASE 60 39 - 117 U/L [facility] TOTAL BILIRUBIN 0.5 0.0 - 1.2 mg/dL [facility] AST 24 0 - 37 U/L [facility] ALT 18 0 - 40 U/L [facility] GLOBULIN 2.7 1 - 4.8 g/dL [facility] EGFR 78 >59 mL/min/1.7 3m2 [facility] Comment:Estimated glomerular filtration rate calculated using the CKD-EPI refit equation. ANION GAP 17 10 - 20 mmol/L [facility] Blood 10/07/2024 12:3 3 PM EDT 10/07/2024 12:37 PM EDT us Ana Doe MD LAB BLOOD BKR ORDERABL ES Final Result [address] [address] * (ABNORMAL) Lipid panel (10/07/2024 12:33 PM EDT) HDL 61 mg/dL [facility] Comment: Interpretation <40 mg/dL: Low HDL cholesterol (major risk factor for CHD) Greater than or equal to 60 mg/dL: High HDL cholesterol ( negative risk factor for CHD) HDL - cholesterol is affected by a number of factors, e.g. smoking, excerise, hormones, sex and age. CHOLESTEROL 166 0 - 240 mg/dL [facility] TRIGLYCERIDES 122 30 - 160 mg/dL [facility] LDL 81 50 - 129 mg/dL [facility] Comment: LDL levels in terms of risk for coronary heart disease: <100 mg/dL: Optimal 100-129 mg/dL: Near or above optimal 130-159 mg/dL: Borderline high 160-189 mg/dL: High >190 mg/dL: Very High CARDIAC RISK RATIO 2.7(L) 3.4 - 5.0 [facility] Blood 10/07/2024 12:3 3 PM EDT 10/07/2024 12:37 PM EDT us Ana Doe MD LAB BLOOD BKR ORDERABL ES Final Result [facility] [address] [place] [address] from Last 3 Months or Most Recently Relevant to Health Maintenance Insurance [facility] REPLACEMENT PRE[place] [employer] [id number] [facility] MEDICARE [facility]PLACEMENT [facility] MEDICARE REPLACEMENT [facility] MEDICARE REPLACEMENT [facility] MEDICARE REPLACEMENT Care Teams Tar Kettle Runner Relationship Specialty Start Date End Date Roger Benedict MD [address] [place] [address] PCP - General Internal Medicine 12/22/21 Vladimir Jones MD [address] [place] [address] [place] [address] Historical LMR Provider 01/18/17 Additional Source Comments The information contained in this document represents components of the legal health record. It is not the complete legal health record.[facility]
--- OUTSIDE RECORDS SUMMARY | 2025-02-19 17:58 | XMS_ITS | Clinical Summary ---
Author Organization [employer] Address [address] [facility] 7[address] [place] [address] Care Team Providers Care Medical Pathology Teacher Name Role Phone Kd Eaton DMD [...] Mass Index - - Plan of Treatment Health Maintenance Due Date Last Done Comments Depression Screening 1945 Lipid Panel 1945 SDOH Screening 1945 Alcohol/Substance Use Screening 1959 Hepatitis C Screening 09/12/1965 Zoster Vaccines (1 of 2) 09/12/1997 Pneumococcal Vaccine: 50+ Years (2 of 2 - PCV20 or PCV21) 12/01/2020 12/02/2019 RSV Patients and Patients Aged 60 years or older (1 - 1-dose 75+ series) 09/12/2022 Dental Oral Exam 11/15/2024 05/17/2024 COVID-19 Vaccine (3 - season) 2024 02/16/2021, 07/29/2020 Influenza Vaccine (#1) [...] to Health Maintenance Insurance DENTAL - DQ [facility] Care Teams Medical Pathology Teacher Relationship Specialty Start Date End Date Kd Eaton DMD [address] [place] [address] Dental Core Analyst 04/01/24
--- OUTSIDE RECORDS SUMMARY | 2025-02-19 17:58 | XMS_ITS | Encounter Summary ---
Author Organization Located [facility] Address [address] [facility] [address] [place] [address] Phone Care Team Providers Care Complex Director Name Role Phone Dorian Villalobos MD Unavailable [phone] Vladimir Jones MD Unavailable [phone] Karen Love MD Primary Care Provide r Roger Benedict MD Primary Care Provider + Encounter Details Date Type Department Care Team (Latest Contact Info) Description 06/17/2020 Transcribe Orders [facility] [address] [place] [address] Karen Love MD [address] [place] [address] Essential hypertension, malignant (Primary Dx); Anxiety hyperventilation [...] 12:40 PM EDT Luz Lin RN * [place] Suicide Severity Rating Scale (Screener/Recent Self-Report) Question [...] URINE MICROALBUMIN <1.2 0 - 2.3 mg/dL [facility] URINE CREATININE 61 mg/dL [facility] MICROALB/CRE RATIO NOT CALCULATED 0 - 20 mg/g Cre [facility] Comment:due to Microalbumin <1.2 Urine (Urine) 06/17/2020 2:2 4 PM EDT 06/17/2020 2:30 PM EDT us Karen Love MD LAB URINE ORDERABLES Final Result Performing Organization Address [facility]/ZIP Co de Phone Number [address] [address] * (ABNORMAL) Hemoglobin A1c (06/17/2020 2:24 PM EDT) HEMOGLOBIN A1C 6.1(H) 4.3 - 5.8 % [facility] Blood 06/17/2020 2:24 PM EDT 06/17/2020 2:29 PM EDT us Karen Love MD LAB BLOOD BKR ORDERAB LES Final Result Performing Organization Address City/[facility]/ZIP Co de Phone Number [address] [address] * TSH with reflex (06/17/2020 2:24 PM EDT) TSH 1.14 0.27 - 4.20 uIU/mL [facility] Blood 06/17/2020 2:24 PM EDT 06/17/2020 2:29 PM EDT us Karen Love MD LAB BLOOD BKR ORDERAB LES Final Result [address] [address] * PSA (screening) (06/17/2020 2:24 PM EDT) Pathologist [facility] PSA 1.57 0 - 4.00 ng/mL [facility] Blood 06/17/2020 2:24 PM EDT 06/17/2020 2:30 PM EDT us Karen Love MD LAB BLOOD BKR ORDERAB LES Final Result [address] [address] * (ABNORMAL) Lipid panel (06/17/2020 2:24 PM EDT) Pathologist [facility] HDL 59 mg/dL [facility] Comment: Interpretation <40 mg/dL: Low HDL cholesterol (major risk factor for CHD) Greater than or equal to 60 mg/dL: High HDL cholesterol ( negative risk factor for CHD) HDL - cholesterol is affected by a number of factors, e.g. smoking, excerise, hormones, sex and age. CHOLESTEROL 196 0 - 240 mg/dL [facility] TRIGLYCERIDES 106 30 - 160 mg/dL [facility] LDL 116 50 - 129 mg/dL [facility] Comment: LDL levels in terms of risk for coronary heart disease: <100 mg/dL: Optimal 100-129 mg/dL: Near or above optimal 130-159 mg/dL: Borderline high 160-189 mg/dL: High >190 mg/dL: Very High CARDIAC RISK RATIO 3.3(L) 3.4 - 5.0 [facility] Blood 06/17/2020 2:24 PM EDT 06/17/2020 2:29 PM EDT us Karen Love MD LAB BLOOD BKR ORDERAB LES Final Result [address] [address] * (ABNORMAL) Comprehensive metabolic panel (06/17/2020 2:24 PM EDT) SODIUM 140 133 - 146 mmol/L [facility] POTASSIUM 4.7 3.3 - 5.1 mmol/L [facility] CHLORIDE 104 96 - 108 mmol/L [facility] CO2 27 21 - 35 mmol/L [facility] BUN 19 6 - 19 mg/dL [facility] CREATININE 0.90 0.5 - 1.5 mg/dL [facility] GLUCOSE 105(H) 70 - 99 mg/dL [facility] ALBUMIN 4.6 3.9 - 4.8 g/dL [facility] TOTAL PROTEIN 7.4 6.5 - 8.0 g/dL [facility] CALCIUM 9.5 8.4 - 10.3 mg/dL [facility] ALKALINE PHOSPHATASE 52 39 - 117 U/L [facility] TOTAL BILIRUBIN 0.4 0.0 - 1.2 mg/dL [facility] AST 24 0 - 37 U/L [facility] ALT 20 0 - 40 U/L [facility] GLOBULIN 2.8 1 - 4.8 g/dL [facility] EGFR 85 >59 mL/min/1.7 3m2 [facility] Comment:Estimated glomerular filtration rate calculated using the CKD-EPI equation. ANION GAP 14 10 - 20 mmol/L [facility] Blood 06/17/2020 2:24 PM EDT 06/17/2020 2:29 PM EDT us Karen Love MD LAB BLOOD BKR ORDERAB LES Final Result [facility] [address] [place] [address] * CBC and differential (06/17/2020 2:24 PM EDT) WBC 4.71 4.00 - 11.00 K/uL [facility] RBC 4.70 3.90 - 5.69 M/uL [facility] HGB 14.4 12.4 - 17.3 g/dL [facility] HCT 42.0 37.0 - 51.0 % [facility] PLT 154 140 - 430 K/uL [facility] MCV 89.4 78.0 - 97.0 fL [facility] MCH 30.6 25.0 - 33.0 pg [facility] MCHC 34.3 32.0 - 36.0 g/dL [facility] RDW 12.1 11.0 - 15.0 % [facility] MPV 11.3 8.4 - 12.8 fl [facility] NRBC 0.00 0 /100 WBCs [facility] ABSOLUTE NRBC 0.00 0 K/uL [facility] DIFF METHOD Auto [facility] NEUTS 50.2 43.0 - 75.0 % [facility] LYMPHS 33.5 18.2 - 47.4 % [facility] MONOS 7.6 4.00 - 11.00 % [facility] EOS 7.4 0.0 - 8.0 % [facility] BASOS 1.1 0.0 - 2.0 % [facility] Granulocytes, immature (%) 0.2 0.0 - 0.9 % [facility] ABSOLUTE NEUTS 2.36 1.80 - 7.70 K/uL [facility] ABSOLUTE LYMPHS 1.58 1.00 - 3.10 K/uL [facility] ABSOLUTE MONOS 0.36 0.20 - 0.80 K/uL [facility] ABSOLUTE EOS 0.35 0.00 - 0.80 K/uL [facility] ABSOLUTE BASOS 0.05 0.00 - 0.09 K/uL [facility] Granulocytes, immature 0.01 0.00 - 0.05 K/uL [facility] Blood 06/17/2020 2:24 PM EDT 06/17/2020 2:29 PM EDT Karen Love MD LAB BLOOD BKR ORDERAB LES Final Result [facility] [address] [place] [address] documented in this encounter Visit Diagnoses Diagnosis Essential hypertension, malignant- Primary Anxiety hyperventilation Respiratory malfunction arising from mental factors documented in this encounter Care Teams Complex Director Relationship Specialty Start Date End Date Karen Love MD [address] [place] [address] PCP - General Internal Medicine 05/29/20 12/21/21 Roger Benedict MD [address] [place] [address] PCP - General Internal Medicine 12/22/21 Dorian Villalobos MD [address] [place] [address] [address] [place] [address] [email or web address] Historical LMR Provider 01/18/17 04/10/21 Vladimir Jones MD [address] [place] [address] Historical LMR Provider 01/18/17 documented as of this encounter Additional Source Comments The information contained in this document represents components of the legal health record. It is not the complete legal health record.[facility]
--- OUTSIDE RECORDS SUMMARY | 2025-02-19 17:59 | XMS_ITS | Encounter Summary ---
Author Organization [facility] Address [address] [place] [address] Care Team Providers Care Timekeeping Supervisor Name Role Phone Physician, Pcp Unknown Primary Care Provider Susan vailable Encounter Details Date Type Department Care Team (Late st Contact Info) Description 08/07/2024 Lab Requisition [facility] - Main Lab [address] [facility] [place] [address] Vikram Soto PA [address] [facility] [address] [place] [address] Essential (primary) hypertension; Unspecified abdominal hernia without obstruction or gangrene; Other custodial (current) drug therapy; Encounter for screening for [...] abdominal hernia without obstruction or gangrene Other bed bug exterminator (current) drug therapy Encounter for screening for [...] abdominal hernia without obstruction or gangrene Other bed bug exterminator (current) drug therapy Encounter for screening for malignant neoplasm of prostate CBC WITH AUTO DIFFERENTIAL Routine 08/07/2024 12:00 AM EDT Essential (primary) hypertension Unspecified abdominal hernia without obstruction or gangrene Other custodial (current) drug therapy Encounter for screening for malignant neoplasm of prostate LAVENDER - EDTA Routine 08/07/2024 12:00 AM EDT Essential (primary) hypertension Unspecified abdominal hernia without obstruction or gangrene Other bed bug exterminator (current) drug therapy Encounter for screening for malignant neoplasm of prostate VITAMIN D 25 HYDROXY Routine 08/07/2024 12:00 AM EDT Essential (primary) hypertension Unspecified abdominal hernia without obstruction or gangrene Other bed bug exterminator (current) drug therapy Encounter for screening for malignant neoplasm of prostate URINALYSIS WITH REFLEX MICROSCOPIC AND CULTURE Routine 08/07/2024 12:00 AM EDT Essential (primary) hypertension Unspecified abdominal hernia without obstruction or gangrene Other bed bug exterminator (current) drug therapy Encounter for screening for malignant neoplasm of prostate CBC AND DIFFERENTIAL Routine 08/07/2024 12:00 AM EDT Essential (primary) hypertension Unspecified abdominal hernia without obstruction or gangrene Other bed bug exterminator (current) drug therapy Encounter for screening for malignant neoplasm of prostate C-REACTIVE PROTEIN Routine 08/07/2024 12 :00 AM EDT Essential (primary) hypertension Unspecified abdominal hernia without obstruction or gangrene Other bed bug exterminator (current) drug therapy Encounter for screening for malignant neoplasm of prostate THYROID STIMULATING HORMONE Routine 08/07/2024 12:00 AM EDT Essential (primary) hypertension Unspecified abdominal hernia without obstruction or gangrene Other custodial (current) drug therapy Encounter for screening for malignant neoplasm of prostate THYROXINE FREE Routine 08/07/2024 12:00 AM EDT Essential (primary) hypertension Unspecified abdominal hernia without obstruction or gangrene Other bed bug exterminator (current) drug therapy Encounter for screening for malignant neoplasm of prostate MAGNESIUM Routine 08/07/2024 12:00 AM EDT Essential (primary) hypertension Unspecified abdominal hernia without obstruction or gangrene Other bed bug exterminator (current) drug therapy Encounter for screening for [...] microscopic and culture (08/07/2024 12:00 AM EDT) [facility] Specific [place] Urine 1.010 1.003 - 1.030 LAB URINALYSIS - AUTOMATED METHOD 08/07/2024 7:53 PM [facility] pH, Urine 7.0 5.0 - 8.0 pH LAB URINALYSIS - AUTOMATED METHOD 08/07/2024 7:53 PM [facility] Leukocytes, Urine Negative Negative LAB URINALYSIS - AUTOMATED METHOD 08/07/2024 7:53 PM EDT [facility] Nitrite, Urine Negative Negative LAB URINALYSIS - AUTOMATED METHOD 08/07/2024 7:53 PM EDT [facility] Protein, Urine Negative <=Trace mg/dL LAB URINALYSIS - AUTOMATED METHOD [facility]24 [facility] Glucose, Urine Negative Negative mg/dL LAB URINALYSIS - AUTOMATED METHOD 08/07/2024 7:[facility] Ketones, Urine Negative Negative mg/dL LAB URINALYSIS - AUTOMATED METHOD 08/07/2024 7:53 PM [facility] Urobilinogen, Urine 0.2 0.2 - 1.0 mg/dL LAB URINALYSIS - AUTOMATED METHOD 08/07/2024 7:53 PM [facility] Bilirubin, Urine Negative Negative LAB URINALYSIS - AUTOMATED METHOD 08/07/2024 7:53 [facility] Blood, Urine Negative Negative LAB URINALYSIS - AUTOMATED METHOD 08/07/2024 7:53 PM [facility] Urine Urine specimen obtained by clean catch procedure / Unknown 08/07/2024 08/07/2024 7:11 PM EDT Vikram AMARO LAB URINE ORDERABLES Final Res ult [facility] [address] [place] [address], * Stewart urine culture tube (08/07/2024 12:00 AM EDT) Extra Tube Hold for add-ons. 08/07/2024 9:01 PM EDT [facility] Comment:Auto resulted. Urine Urine specimen obtained by clean catch procedure / Unknown 08/07/2024 08/07/2024 7:05 PM EDT Vikram AMARO LAB URINE ORDERABLES Final Res ult Performing Organization Address [facility]/ZIP Co de Phone Number [facility] [address] [place] [address], [place] [phone] * Lavender tube (08/07/2024 12:00 AM EDT) Extra Tube Hold for add-ons. 08/07/2024 9:01 PM EDT [facility] Comment:Auto resulted. Blood Venous blood specimen / Unknown 08/07/2024 08/07/2024 7:05 PM EDT Vikram AMARO LAB BLOOD ORDERABLES Final Res ult Performing Organization Address [facility] Co de Phone Number [facility] [address] [place] [address], [place] [phone] * SST tube (08/07/2024 12:00 AM EDT) Extra Tube Hold for add-ons. 08/07/2024 9:01 PM EDT [facility] Comment:Auto resulted. Blood Venous blood specimen / Unknown 08/07/2024 08/07/2024 7:05 PM EDT Vikrma AMARO LAB BLOOD ORDERABLES Final Res ult Performing Organization Address City/[facility]/ZIP Co de Phone Number [facility] [address] [place] [address], [place] [phone] * (ABNORMAL) CBC auto differential (08/07/2024 12:00 AM EDT) WBC 5.1 4.8 - 10.8 K/[facility] LAB HEMETOLOGY METHOD 08/07/2024 7:28 PM EDT [facility] RBC 4.80 4.50 - 5.50 M/mcL LAB HEMETOLOGY METHOD 08/07/2024 7:28 PM EDT [facility] Hemoglobin 14.1 13.5 - 17.5 g/dL LAB HEMETOLOGY METHOD 08/07/2024 7:28 PM [facility] Hematocrit 42.6 42.0 - 54.0 % LAB HEMETOLOGY METHOD 08/07/2024 7:28 PM [facility] MCV 89.5 79.0 - 98.0 FL LAB HEMETOLOGY METHOD 08/07/2024 7:28 [facility] MCH 29.6 27.0 - 32.0 pcg LAB HEMETOLOGY METHOD 08/07/2024 7:28 PM [facility] MCHC 33.1 32.0 - 37.0 g/dL LAB HEMETOLOGY METHOD 08/07/2024 7:28 PM [facility] RDW 12.7 11.0 - 15.0 % LAB HEMETOLOGY METHOD 08/07/2024 7:28 PM [facility] Platelets 162 130 - 400 K/mcL LAB HEMETOLOGY METHOD 08/07/2024 7:28 PM [facility] MPV 11.5(H) 7.0 - 11.0 FL LAB HEMETOLOGY METHOD 08/07/2024 7:28 PM [facility] NRBC 0.0 <1.0 % LAB HEMETOLOGY METHOD 08/07/2024 7:28 PM [facility] NRBC Absolute 0.00 <0.10 K/mcL LAB HEMETOLOGY METHOD 08/07/2024 7:28 [facility] Neutrophils Relative 48.3 % LAB HEMETOLOGY METHOD 08/07/2024 7:28 PM [facility] Lymphocytes Relative 36.5 % LAB HEMETOLOGY METHOD 08/07/2024 7:28 PM EDT [facility] Monocytes Relative 7.7 % LAB HEMETOLOGY METHOD 08/07/2024 7:28 PM EDT [facility] Eosinophils Relative 6.7 % LAB HEMETOLOGY METHOD 08/07/2024 7:28 [facility] Basophils Relative 0.6 % LAB HEMETOLOGY METHOD 08/07/2024 7:28 PM EDT [facility] Immature Granulocytes Relative 0.2 % LAB HEMETOLOGY METHOD 08/07/2024 7:28 PM EDT [facility] Neutrophils Absolute 2.45 1.50 - 7.00 K/mcL LAB HEMETOLOGY METHOD 08/07/2024 7:28 [facility] Lymphocytes Absolute 1.85 1.00 - 5.00 K/mcL LAB HEMETOLOGY METHOD 08/07/2024 7:28 PM EDT [facility] Monocytes Absolute 0.39 0.20 - 1.00 K/mcL LAB HEMETOLOGY METHOD 08/07/2024 7:28 PM EDT [facility] Eosinophils Absolute 0.34 0.00 - 0.50 K/mcL LAB HEMETOLOGY METHOD 08/07/2024 7:[facility] Basophils Absolute 0.03 0.00 - 0.20 K/mcL LAB HEMETOLOGY METHOD 08/07/2024 7:28 [facility] Immature Granulocytes Absolute 0.01 0.00 - 0.03 K/mcL LAB HEMETOLOGY METHOD 08/07/2024 7:28 PM EDT [facility] Blood Venous blood specimen / Unknown 08/07/2024 08/07/2024 7:05 PM EDT us Vikram AMARO LAB BLOOD ORDERABLES Final Res ult [facility] [address] [place] [address], [place] [phone] * Vitamin D 25 hydroxy (08/07/2024 12:00 AM EDT) Vit D, 25-Hydroxy 66.8 30.0 - 80.0 ng/mL LAB CHEMISTRY METHOD 08/07/2024 9:11 PM EDT [facility] Blood Venous blood specimen / Unknown 08/07/2024 08/07/2024 7:05 PM EDT us Vikram AMARO LAB BLOOD ORDERABLES Final Res ult [facility] [address] [place] [address], [place] [phone] * Thyroid stimulating hormone (08/07/2024 12:00 AM EDT) Pathologist [facility] TSH 1.14 0.40 - 4.00 mcIU/mL LAB CHEMISTRY METHOD 08/07/2024 9:50 PM EDT [facility] Blood Venous blood specimen / Unknown 08/07/2024 08/07/2024 7:05 PM EDT us Vikram AMARO LAB BLOOD ORDERABLES Final Res ult [facility] [address] [place] [address], [place] [phone] * Prostate specific antigen screen (08/07/2024 12:00 AM EDT) PSA 1.33 0.00 - 4.00 ng/mL LAB CHEMISTRY METHOD 08/07/2024 9:12 PM EDT [facility] Blood Venous blood specimen / Unknown 08/07/2024 08/07/2024 7:05 PM EDT Narrative [facility] - 08/07/2024 9:12 PM EDT The Siemens Advia Centaur Chemiluminescent Immunoassay is used. Results obtained with different assay methods or kits cannot be used interchangeably. Results cannot be interpreted as absolute evidence of the presence or absence of malignant disease. Vikram AMARO LAB BLOOD ORDERABLES Final Res ult Performing Organization Address [facility]/ZIP Co de Phone Number [facility] [address] [place] [address], [place] [phone] * Magnesium (08/07/2024 12:00 AM EDT) Magnesium 2.1 1.9 - 2.6 mg/dL LAB CHEMISTRY METHOD 08/07/2024 8:48 PM EDT [facility] Blood Venous blood specimen / Unknown 08/07/2024 08/07/2024 7:05 PM EDT Vikram AMARO LAB BLOOD ORDERABLES Final Res ult Performing Organization Address [facility] Co de Phone Number [facility] [address] [place] [address], [place] [phone] * (ABNORMAL) Hemoglobin A1c (08/07/2024 12:00 AM EDT) Hemoglobin A1C 6.5(H) <6.5 % LAB CHEMISTRY METHOD 08/07/2024 9:36 PM EDT [facility] Mean Bld Glu Estim. 140 mg/dL LAB CHEMISTRY METHOD 08/07/2024 9:36 PM EDT [facility] Blood Venous blood specimen / Unknown 08/07/2024 08/07/2024 7:05 PM EDT Vikram AMARO LAB BLOOD ORDERABLES Final Res ult Performing Organization Address [facility]/ZIP Co de Phone Number [facility] [address] [place] [address], [place] [phone] * Thyroxine free (08/07/2024 12:00 AM EDT) Free T4 1.20 0.70 - 1.80 ng/dL LAB CHEMISTRY METHOD 08/07/2024 9:11 PM EDT [facility] Blood Venous blood specimen / Unknown 08/07/2024 08/07/2024 7:05 PM EDT us Vikram AMARO LAB BLOOD ORDERABLES Final Res ult [facility] [address] [place] [address], * C-reactive protein (08/07/2024 12:00 AM EDT) [facility] C-Reactive Protein <0.29 <=0.50 mg/dL LAB CHEMISTRY METHOD 08/07/2024 8:48 PM EDT [facility] Blood Venous blood specimen / Unknown 08/07/2024 08/07/2024 7:05 PM EDT us Vikram AMARO LAB BLOOD ORDERABLES Final Res ult [facility] [address] [place] [address], [place] [phone] * (ABNORMAL) Vitamin B12 (08/07/2024 12:00 AM EDT) Pathologist [facility] Vitamin B-12 939(H) 250 - 900 pcg/mL LAB CHEMISTRY METHOD 08/07/2024 9:16 PM EDT [facility] Blood Venous blood specimen / Unknown 08/07/2024 08/07/2024 7:05 PM EDT us Vikram AMARO LAB BLOOD ORDERABLES Final Res ult [facility] [address] [place] [address], * (ABNORMAL) Drug abuse screen 8a panel, urine (08/07/2024 12:00 AM EDT) Amphetamine Screen, Ur Negative Negative LAB CHEMISTRY METHOD 5 8:55 PM EDT [facility] Comment:Certain OTC medicati ons containing ephedrine, phenylephrine, pseudoephedrine and phenylpropanolamine can cause false positive results. Barbiturate Screen, Ur Negative Negative LAB CHEMISTRY METHOD 5 8:55 PM EDT [facility] Benzodiazepine Screen, Ur Positive(A ) Negative LAB CHEMISTRY METHOD 5 8:55 PM EDT [facility] Cocaine Screen, Ur Negative Negative [facility] Opiate Screen, Ur Negative Negative LAB CHEMISTRY METHOD 5 8:55 PM [facility] Cannabinoid (THC) Screen, Ur Negative Negative LAB CHEMISTRY METHOD 5 8:55 PM T [facility] Comment:Specimens from patie nts taking pantoprazole sodium (Protonix) have been shown to produce false positive results. Oxycodone Screen, Ur Negative Negative LAB CHEMISTRY METHOD 5 8:55 PM EDT [facility] Fentanyl, Ur Negative Negative LAB CHEMISTRY METHOD 5 8:55 PM [facility] Urine Urine specimen obtained by clean catch procedure / Unknown 08/07/2024 08/07/2024 7:05 PM EDT Narrative [facility] - 08/07/2024 8:55 PM EDT [...] AMARO LAB URINE ORDERABLES Final Res ult [facility] [address] [place] [address], [place] [phone] * (ABNORMAL) Comprehensive metabolic panel (08/07/2024 12:00 AM EDT) Sodium 140 133 - 145 mmol/L LAB CHEMISTRY METHOD 08/07/2024 9:16 PM [facility] Potassium 4.1 3.5 - 5.5 mmol/L LAB CHEMISTRY METHOD 08/07/2024 9:16 PM [facility] Chloride 109 96 - 110 mmol/L LAB CHEMISTRY METHOD 08/07/2024 9:16 PM [facility] CO2 25 21 - 32 mmol/L LAB CHEMISTRY METHOD 08/07/2024 9:16 PM [facility] Anion Gap 6 3 - 11 LAB CHEMISTRY METHOD 08/07/2024 9:16 PM [facility] Glucose 103(H) 70 - 100 mg/dL LAB CHEMISTRY METHOD 08/07/2024 9:16 PM [facility] BUN 20 5 - 25 mg/dL LAB CHEMISTRY METHOD 08/07/2024 9:16 PM [facility] Creatinine 1.06 0.70 - 1.30 mg/dL LAB CHEMISTRY METHOD 08/07/2024 9:16 PM [facility] eGFR 73 >=60 mL/min/1. 73m2 LAB CHEMISTRY METHOD 08/07/2024 9:16 PM [facility] Comment:Calculation based on the Chronic Kidney Disease Epidemiology Collaboration (CKD-EPI) equation refit without adjustment for race. BUN/Creatinine Ratio 18.9 LAB CHEMISTRY METHOD 08/07/2024 9:16 PM [facility] Calcium 8.9 8.5 - 10.5 mg/dL LAB CHEMISTRY METHOD 08/07/2024 9:16 PM [facility] AST (SGOT) 20 10 - 42 unit/L LAB CHEMISTRY METHOD 08/07/2024 9:16 PM [facility] ALT (SGPT) 27 10 - 60 unit/L LAB CHEMISTRY METHOD 08/07/2024 9:16 PM [facility] Alkaline Phosphatase 58 42 - 121 unit/L LAB CHEMISTRY METHOD 08/07/2024 9:16 PM [facility] Total Protein 7.3 6.0 - 8.0 g/dL LAB CHEMISTRY METHOD 08/07/2024 9:16 PM [facility] Albumin 4.1 3.2 - 5.0 g/dL LAB CHEMISTRY METHOD 08/07/2024 9:16 PM [facility] Total Bilirubin 0.6 0.0 - 1.4 mg/dL LAB CHEMISTRY METHOD 08/07/2024 9:16 PM [facility] Blood Venous blood specimen / Unknown 08/07/2024 08/07/2024 7:05 PM EDT us Vikram AMARO LAB BLOOD ORDERABLES Final Res ult [facility] [address] [place] [address], [place] [phone] documented in this encounter Visit Diagnoses Diagnosis Essential (primary) hypertension Unspecified essential hypertension Unspecified abdominal hernia without obstruction or gangrene Other custodial (current) drug therapy Encounter for screening for malignant neoplasm of prostate documented in this encounter Care Teams Timekeeping Supervisor Relationship Specialty Start Date End Date Physician, Pcp Unknown PCP - General 08/08/24 documented as of this encounter
--- OUTSIDE RECORDS SUMMARY | 2025-02-19 17:59 | XMS_ITS | Clinical Summary ---
Author Organization [address] Address [address] [place] [address] Phone Care Team Providers Care Die Set Up Worker Name Role Phone Physician, Pcp Unknown [...] Depression Screening 04/03/2024 COVID-19 Vaccine (1 - 2024-2 6 season) 2024 Influenza Vaccine (#1) 2024 HIB Vaccines Aged Out No longer eligi [...] on patient's age to complete this topic Insurance [facility] Care Teams Die Set Up Worker Relationship Specialty Start Date End Date Physician, Pcp Unknown PCP - General 08/08/24
--- OUTSIDE RECORDS SUMMARY | 2025-02-19 17:59 | XMS_ITS | Encounter Summary ---
Author Organization [facility] Address [address] [facility] [address] [place] [address] Phone Care Team Providers Care Glass Cutter Hand Name Role Phone Dorian Villalobos MD Unavailable [phone] Vladimir Jones MD Unavailable [phone] Karen Love MD Primary Care Provide r Roger Benedict MD Primary Care Provider + Encounter Details Date Type Department Care Team (Late st Contact Info) Description 08/01/2020 Procedure Pass [facility], Ct Scan - [address] [address] Social History Tobacco Use Types Packs/Day Years [...] 2:11 PM EDT Anna Addison, KAYY * [place] Suicide Severity Rating Scale (Screener/Recent Self-Report) Question [...] on filedocumented in this encounter Care Teams Glass Cutter Hand Relationship Specialty Start Date End Date Karen Love MD [address] [place] [address] PCP - General Internal Medicine 05/29/20 12/21/21 Roger Benedict MD [address] [place] [id number] PCP - General Internal Medicine 12/22/21 Dorian Villalobos MD [address] [place] [address] [place] [address] [email or web address] Historical LMR Provider 01/18/17 04/10/21 Vladimir Jones MD [address] [place] [id number] Historical LMR Provider 01/18/17 documented as of this encounter Additional Source Comments The information contained in this document represents components of the legal health record. It is not the complete legal health record.[facility]
--- OUTSIDE RECORDS SUMMARY | 2025-02-19 17:59 | XMS_ITS | Encounter Summary ---
Author Organization [employer] Address [address] [facility] [address] [place] [address] Care Team Providers Care Nurse Liaison Name Role Phone Uma Kd DMD Unavailable Reason for Visit * Reason Onset Date Comments emergency dental insurance 03/22/2024 Encounter Details Date Type Department Care Team (Late st Contact Info) Description 03/22/2024 Telephone C ADULT DENTAL [address] [place] [address] Kd Eaton DMD [address] [place] [address] emergency dental insurance Social History Tobacco Use [...] documented in this encounter Plan of Treatment Not on file documented as of this encounter Visit Diagnoses Not on filedocumented in this encounter Care Teams Nurse Liaison Relationship Specialty Start Date End Date Kd Eaton DMD [address] [place] [address] Dental Cold Roll Packer Sheet Iron 04/01/24 documented as of this encounter
--- OUTSIDE RECORDS SUMMARY | 2025-02-19 17:59 | XMS_ITS | Encounter Summary ---
Author Organization [facility] Address [address] [place] [address] [place] [phone] Phone Care Team Providers Care Cadd Instructor Name Role Phone Vladimir Jones MD Primary Care Provider [phone] Dorian Villalobos MD Unavailable [phone] Vladimir Jones MD Unavailable [phone] Karen Love MD Primary Care Provide r Roger Benedict MD Primary Care Provider + Encounter Details Date Type Department Care Team (Late st Contact Info) Description 08/29/2017 Transcribe Orders [facility] Phleb Main [address] [place] [address] Vladimir Jones MD [address] [place] [address] [place] [address] Hypertension, unspecified type (Primary Dx); Elevated cholesterol; [...] * Magnesium (08/29/2017 2:27 PM EDT) Pathologist [facility] MAGNESIUM 1.8 1.6 - 2.6 mg/dL [facility] Blood 08/29/2017 2:27 PM EDT 08/29/2017 2:31 PM EDT us Vladimir Jones MD LAB BLOOD BKR ORDERABLES Final Result Performing Organization Address [facility]/ZIP Co de Phone Number [address] [address] * TSH (08/29/2017 2:27 PM EDT) [facility] TSH 1.38 0.27 - 4.20 uIU/mL [facility] Blood 08/29/2017 2:27 PM EDT 08/29/2017 2:31 PM EDT us Vladimir Jones MD LAB BLOOD BKR ORDERABLES Final Result Performing Organization Address [facility] Co de Phone Number [address] [address] * T4, total (08/29/2017 2:27 PM EDT) [facility] THYROXINE 6.6 4.6 - 12.0 ug/dL [facility] Blood 08/29/2017 2:27 PM EDT 08/29/2017 2:31 PM EDT us Vladimir Jones MD LAB BLOOD ORDERABLES Final Res ult Performing Organization Address [facility] Co de Phone Number [address] [address] * (ABNORMAL) Lipid panel (08/29/2017 2:27 PM EDT) [facility] HDL 64 mg/dL [facility] Comment: Interpretation: Risk Level Males Decreased >45 mg/dL Average 40-45 mg/dL Increased <40 mg/dL CHOLESTEROL 178 0 - 240 mg/dL [facility] TRIGLYCERIDES 98 30 - 160 mg/dL [facility] LDL 94 50 - 129 mg/dL [facility] Comment: LDL levels in terms of risk for coronary heart disease: <100 mg/dL: Optimal 100-129 mg/dL: Near or above optimal 130-159 mg/dL: Borderline high 160-189 mg/dL: High >190 mg/dL: Very High CARDIAC RISK RATIO 2.8(L) 3.4 - 5.0 C [facility] Blood 08/29/2017 2:27 PM EDT 08/29/2017 2:31 PM EDT us Vladimir Jones MD LAB BLOOD BKR ORDERABLES Final Result [facility] [address] [place] [address] * (ABNORMAL) Comprehensive metabolic panel (08/29/2017 2:27 PM EDT) SODIUM 139 133 - 146 mmol/L [facility] POTASSIUM 4.3 3.3 - 5.1 mmol/L [facility] CHLORIDE 103 96 - 108 mmol/L [facility] CO2 21 21 - 35 mmol/L [facility] BUN 18 6 - 19 mg/dL [facility] CREATININE 1.10 0.5 - 1.5 mg/dL [facility] GLUCOSE 109(H) 70 - 99 mg/dL [facility] ALBUMIN 4.5 3.9 - 4.8 g/dL [facility] TOTAL PROTEIN 7.4 6.5 - 8.0 g/dL [facility] CALCIUM 9.1 8.4 - 10.3 mg/dL [facility] ALKALINE PHOSPHATASE 46 39 - 117 U/L [facility] TOTAL BILIRUBIN 0.5 0.0 - 1.2 mg/dL [facility] AST 22 0 - 37 U/L [facility] ALT 20 0 - 40 U/L [facility] GLOBULIN 2.9 1 - 4.8 g/dL [facility] EGFR 68 >59 mL/min/1.7 3m2 [facility] Comment:If patient is black, multiply result by 1.159. The eGFR calculation has changed from the MDRD equation to the CKD-EPI equation as of June 06, 2017. ANION GAP 19 10 - 20 mmol/L [facility] Blood 08/29/2017 2:27 PM EDT 08/29/2017 2:31 PM EDT us Vladimir Jones MD LAB BLOOD BKR ORDERABLES Final Result Performing Organization Address City/[facility] Co de Phone Number [address] [address] * CBC (08/29/2017 2:27 PM EDT) [facility] WBC 5.24 3.40 - 11.20 K/uL [facility] RBC 4.64 4.50 - 5.50 M/uL [facility] HGB 14.0 13.0 - 17.0 g/dL [facility] HCT 40.1 40.0 - 51.0 % [facility] PLT 152 130 - 400 K/uL [facility] MCV 86.4 79.0 - 98.0 fL [facility] MCH 30.2 27.0 - 34.8 pg [facility] MCHC 34.9 31.5 - 36.0 g/dL [facility] RDW 12.6 10.8 - 14.6 % [facility] MPV 10.7 9.4 - 12.4 fl [facility] NRBC 0.00 /100 WBCs [facility] ABSOLUTE NRBC 0.00 K/uL [facility] Blood 08/29/2017 2:27 PM EDT 08/29/2017 2:31 PM EDT us Vladimir Jones MD LAB BLOOD BKR ORDERABLES Final Result Performing Organization Address City/[facility]/ZIP Co de Phone Number [address] [address] documented in this encounter Visit Diagnoses Diagnosis Hypertension, unspecified type- Primary Elevated cholesterol Pure hypercholesterolemia Fatigue, unspecified type documented in this encounter Care Teams Cadd Instructor Relationship Specialty Start Date End Date Vladimir Jones MD [address] [place] [address] [place] [address] PCP - General 01/17/17 05/28/20 Karen Love MD [address] [place] [address] PCP - General Internal Medicine 05/29/20 12/21/21 Roger Benedict MD [address] [place] [address] PCP - General Internal Medicine 12/22/21 Dorian Villalobos MD [address] [place] [address] [address] [place] [address] [email or web address] Historical LMR Provider 01/18/17 04/10/21 Vladimir Jones MD [address] [place] [id number] Historical LMR Provider 01/18/17 documented as of this encounter Additional Source Comments The information contained in this document represents components of the legal health record. It is not the complete legal health record.[facility]
== END 2025-02-19 10:47 | disposition home or self-care (01) ==
LOC: HO.HGS 09:43
PROVIDERS: PCP Internal Medicine; Visit Provider Surgery
DX: K40.90 Unilateral inguinal hernia, without obstruction or gangrene, not specified as recurrent (principal)
CPT/HCPCS: 99203

== ENCOUNTER → 2025-02-19 09:42 | Outpatient (BNVA) | payer OTHER, SELFPAY | PROVIDERS: PCP Internal Medicine; Visit Provider Surgery | DX: K40.90 Unilateral inguinal hernia, without obstruction or gangrene, not specified as recurrent (principal) | CPT/HCPCS: 99202 ==

== ENCOUNTER 2025-03-31 12:47 | Outpatient (AMB) | payer OTHER, SELFPAY ==
[2025-03-31 12:51] VITALS: BP 138/70; PULSE 60; BMI 29.9
--- NOTE | 2025-03-31 12:51 | A.OFFVIS_ITS ---
Vital Signs 03/31/25 12:51 Height 5 ft 9 in Weight 202 lb 13.204 oz BMI 29.9 BP 138/70 Blood Pressure Location Lt brachial Position Sitting Pulse 60 Pulse Source Pulse Oximeter Intake Visit Reasons: 3 month Allergies amoxicillin Allergy (Intermediate, Verified 02/19/25 10:27) Facial Swelling clindamycin Adverse Reaction (Intermediate, Verified 02/19/25 10:27) Blister doxycycline Adverse Reaction (Mild, Verified 02/19/25 10:27) Blister propranolol (From Inderal [place]) Adverse Reaction (Unknown, Verified 03/31/25 15:09) paraesthesia Medication List - Last Reconciled 03/31/25 by Kevin Oglesby MD alprazolam 0.5 mg PO DAILY lisinopril 5 mg PO DAILY HPI Comments Details: Edgar returns for follow-up. He was referred for cardiac consultation by his previous PCP Dr. Benedict for elevated blood pressure, but then his current PCP is Dr. Doe. Any case, he does not have any known cardiac issues including coronary disease or myocardial infarction or cardiomyopathy. He states that he can randomly feels some heart fluttering. He does not have any clear-cut exertional angina. He has completed an echocardiogram, Holter and a partial stress test. He refused the resting portion of the stress test. [facility] Medical History (Updated 03/31/25 @ 15:05 by Kevin Oglesby MD) Right inguinal hernia Macular degeneration of left eye Thyroiditis Primary hypertension Surgical History Hx of partial adrenalectomy History of cataract surgery Family History Father Heart attack Cerebral hemorrhage Social History Alcohol intake: current Alcohol type: beer and wine Patient Tobacco Use Status: Never used Tobacco Review of Systems Const Denies weakness ENT Denies dizziness Card Denies chest pain, Denies chest pain with activity, Denies syncope, Denies rapid heart rate, Denies pedal edema, Denies edema, Denies leg edema, Denies lightheadedness, Reports palpitations, Denies dyspnea, Denies dyspnea on exertion and Denies orthopnea Resp Denies cough, Denies dyspnea and Denies dyspnea on exertion GI Denies hematochezia and Denies change in stool character Musc Denies abnormal gait, Denies muscle cramps, Denies muscle weakness, Denies numbness, Denies radiating pain into limb and Denies tingling Neuro Denies abnormal gait, Denies dizziness, Denies syncope, Denies numbness, Denies tingling and Denies weakness Endo Reports palpitations Physical Exam Vital Signs: Last Vital Signs Pulse 60 03/31/25 12:51 BP 138/70 03/31/25 12:51 BMI result Body Mass Index 29.9 Const General: comfortable and no acute distress Orientation/consciousness: patient oriented x3 HEENT Other: Unremarkable Head: Yes normal to inspection Neck Neck: Yes normal visual inspection Chest Chest palpation & inspection: normal inspection of the chest Resp Auscultation: clear to auscultation bilaterally Cardio Palpation: normal PMI Heart sounds: S1 normal heart sound present, S2 normal heart sound present, no gallops, no murmurs and no rubs GI Palpation (GI): Soft to palpation Back/Spine/Pelvis Other: unremarkable Skin General skin exam: no rashes or lesions noted Neuro General: patient oriented x3 Extrem General: Yes normal to inspection Psych Mental Status: mental status grossly normal Assessment & Plan Assessment & Plan (1) PAC (premature atrial contraction): Code(s): I49.1 - Atrial premature depolarization Category: Medical Plan: In the Holter monitor, frequent supraventricular ectopy with a burden of 27%. We discussed about trying out beta-blockers or calcium blockers but he is absolutely against it. He has had some nonspecific side effect from Inderal like like weakness but I doubt if it is truly related. Any case, patient does not want to try any medications. (2) PVC (premature ventricular contraction): Code(s): I49.3 - Ventricular premature depolarization Category: Medical Plan: Rare PVCs on Holter. No specific implications. (3) Primary hypertension: Code(s): I10 - Essential (primary) hypertension Category: Medical Plan: On lisinopril. Borderline blood pressures. Not interested in any other medications. (4) Abnormal stress test: Code(s): R94.39 - Abnormal result of other cardiovascular function study Category: Medical Plan: In the ETT portion, he reached 4.6 METS and reached target heart rate and had some chest pressure with a hypertensive blood pressure response up to 210/100 mm Hg. In the perfusion component, only the stress part was done as he refused the resting portion. Stress part showed inferior perfusion defect but as there is no comparison resting images could not differentiate if it is infarct versus ischemia versus just artifactual. Clinically, he does not have any exertional angina. Not amenable to any suggestions. Plan Discussion Notes: I confirmed the patient's sensation of palpitations is due to frequent extra beats from the top chamber of the heart, noting this could potentially lead to atrial fibrillation. I discussed treatment options, explaining that beta-block ers and calcium channel blockers are the primary classes of drugs used for this condition. The patient declined these options, citing a history of severe adverse reactions to Inderal and a general unwillingness to be a guinea pig for new medications. I informed him that since he refused the standard therapies, I had nothing else to offer for his arrhythmia. I also noted that management of his long-term alprazolam use is not within my area of expertise or privileges. I advised him to monitor his blood pressure and to call if anything new comes up. Patient was informed and verbally consented to the use of an ambient scribe for clinic note documentation during this visit. Total time spent including review of data, counseling, documentation, coordination of care-32 minutes. Coding Level of Care Code Est Pt Level 4 (12559) Add On Problem Visit Only Diagnoses PAC (premature atrial contraction) I49.1 PVC (premature ventricular contraction) I49.3 Primary hypertension I10 Abnormal stress test R94.39
--- OUTSIDE RECORDS SUMMARY | 2025-03-31 14:39 | XMS_ITS | Encounter Summary ---
Author Organization [employer] Address [address] [place] [address] Care Team Providers Care Airport Screener Name Role Phone Uma Kd DMD Unavailable Reason for Visit * Reason Onset Date Comments emergency dental insurance 03/22/2024 Encounter Details Date Type Department Care Team (Late st Contact Info) Description 03/22/2024 Telephone C ADULT DENTAL [address] [place] [address] Kd Eaton DMD [address] [place] [address] emergency dental insurance Social History Tobacco Use [...] on filedocumented in this encounter Care Teams Airport Screener Relationship Specialty Start Date End Date Kd Eaton DMD [address] [place] [address] Dental Hitch Technician 04/01/24 documented as of this encounter
--- OUTSIDE RECORDS SUMMARY | 2025-03-31 14:39 | XMS_ITS | Encounter Summary ---
Author Organization [facility] Address [address] [place] [address] Care Team Providers Care Neuropathologist Name Role Phone Physician, Pcp Unknown Primary Care Provider Susan vailable Encounter Details Date Type Department Care Team (Late st Contact Info) Description 08/07/2024 Lab Requisition [facility] - Main Lab [address] [facility] [place] [address] Vikram Soto PA [address] [facility] [address] [place], [place] [id number] Essential (primary) hypertension; Unspecified abdominal hernia without obstruction or gangrene; Other alf (current) drug therapy; Encounter for screening for [...] abdominal hernia without obstruction or gangrene Other alf (current) drug therapy Encounter for screening for malignant neoplasm of prostate URINALYSIS WITH REFLEX MICROSCOPIC AND CULTURE Routine 08/07/2024 12:00 AM EDT Essential (primary) hypertension Unspecified abdominal hernia without obstruction or gangrene Other terminal makeup operator (current) drug therapy Encounter for screening for malignant neoplasm of prostate STEWART URINE CULTURE TUBE Routine 08/07/2024 12:00 AM EDT Essential (primary) hypertension Unspecified abdominal hernia without obstruction or gangrene Other alf (current) drug therapy Encounter for screening for malignant neoplasm of prostate SST - GOLD Routine 08/07/2024 12:00 AM EDT Essential (primary) hypertension Unspecified abdominal hernia without obstruction or gangrene Other alf (current) drug therapy Encounter for screening for malignant neoplasm of prostate DRUG ABUSE SCREEN 8A PANEL, URINE Routine 08/07/2024 12:00 AM EDT Essential (primary) hypertension Unspecified abdominal hernia without obstruction or gangrene Other terminal makeup operator (current) drug therapy Encounter for screening for malignant neoplasm of prostate CBC WITH AUTO DIFFERENTIAL Routine 08/07/2024 12:00 AM EDT Essential (primary) hypertension Unspecified abdominal hernia without obstruction or gangrene Other alf (current) drug therapy Encounter for screening for malignant neoplasm of prostate LAVENDER - EDTA Routine 08/07/2024 12:00 AM EDT Essential (primary) hypertension Unspecified abdominal hernia without obstruction or gangrene Other terminal makeup operator (current) drug therapy Encounter for screening for malignant neoplasm of prostate VITAMIN D 25 HYDROXY Routine 08/07/2024 12:00 AM EDT Essential (primary) hypertension Unspecified abdominal hernia without obstruction or gangrene Other terminal makeup operator (current) drug therapy Encounter for screening for malignant neoplasm of prostate URINALYSIS WITH REFLEX MICROSCOPIC AND CULTURE Routine 08/07/2024 12:00 AM EDT Essential (primary) hypertension Unspecified abdominal hernia without obstruction or gangrene Other terminal makeup operator (current) drug therapy Encounter for screening for malignant neoplasm of prostate CBC AND DIFFERENTIAL Routine 08/07/2024 12:00 AM EDT Essential (primary) hypertension Unspecified abdominal hernia without obstruction or gangrene Other terminal makeup operator (current) drug therapy Encounter for screening for malignant neoplasm of prostate C-REACTIVE PROTEIN Routine 08/07/2024 12 :00 AM EDT Essential (primary) hypertension Unspecified abdominal hernia without obstruction or gangrene Other terminal makeup operator (current) drug therapy Encounter for screening for malignant neoplasm of prostate THYROID STIMULATING HORMONE Routine 08/07/2024 12:00 AM EDT Essential (primary) hypertension Unspecified abdominal hernia without obstruction or gangrene Other alf (current) drug therapy Encounter for screening for malignant neoplasm of prostate THYROXINE FREE Routine 08/07/2024 12:00 AM EDT Essential (primary) hypertension Unspecified abdominal hernia without obstruction or gangrene Other terminal makeup operator (current) drug therapy Encounter for screening for malignant neoplasm of prostate MAGNESIUM Routine 08/07/2024 12:00 AM EDT Essential (primary) hypertension Unspecified abdominal hernia without obstruction or gangrene Other terminal makeup operator (current) drug therapy Encounter for screening for malignant neoplasm of prostate HEMOGLOBIN A1C Routine 08/07/2024 12:00 AM EDT Essential (primary) hypertension Unspecified abdominal hernia without obstruction or gangrene Other alf (current) drug therapy Encounter for screening for malignant neoplasm of prostate VITAMIN B12 Routine 08/07/2024 12:00 AM EDT Essential (primary) hypertension Unspecified abdominal hernia without obstruction or gangrene Other alf (current) drug therapy Encounter for screening for malignant neoplasm of prostate COMPREHENSIVE METABOLIC PANEL Routine 08/07/2024 12:00 AM EDT Essential (primary) hypertension Unspecified abdominal hernia without obstruction or gangrene Other alf (current) drug therapy Encounter for screening for malignant neoplasm of prostate documented in this encounter Results * Urinalysis with reflex microscopic and culture (08/07/2024 12:00 AM EDT) [facility] Specific [place] Urine 1.010 1.003 - 1.030 LAB URINALYSIS - AUTOMATED METHOD 08/07/2024 7:53 PM [facility] pH, Urine 7.0 5.0 - 8.0 pH LAB URINALYSIS - AUTOMATED METHOD 08/07/2024 7:53 PM [facility] Leukocytes, Urine Negative Negative LAB URINALYSIS - AUTOMATED METHOD 08/07/2024 7:[address] [facility] Nitrite, Urine Negative Negative LAB URINALYSIS - AUTOMATED METHOD 08/07/2024 7:[address] [facility] Protein, Urine Negative <=Trace mg/dL LAB URINALYSIS - AUTOMATED METHOD 08/07/2024 7:[facility] Glucose, Urine Negative Negative mg/dL LAB URINALYSIS - AUTOMATED METHOD 08/07/2024 7:53 [facility] Ketones, Urine Negative Negative mg/dL LAB URINALYSIS - AUTOMATED METHOD 08/07/2024 7:53 PM [facility] Urobilinogen, Urine 0.2 0.2 - 1.0 mg/dL LAB URINALYSIS - AUTOMATED METHOD 08/07/2024 7:53 PM [facility] Bilirubin, Urine Negative Negative LAB URINALYSIS - AUTOMATED METHOD 08/07/2024 7:53 PM [facility] Blood, Urine Negative Negative LAB URINALYSIS - AUTOMATED METHOD 08/07/2024 7:53 PM [facility] Urine Urine specimen obtained by clean catch procedure / Unknown 08/07/2024 08/07/2024 7:11 PM EDT Vikram AMARO LAB URINE ORDERABLES Final Res ult [facility] [address] [place] [address], * Stewart urine culture tube (08/07/2024 12:00 AM EDT) Extra Tube Hold for add-ons. 08/07/2024 9:[address] [facility] Comment:Auto resulted. Urine Urine specimen obtained by clean catch procedure / Unknown 08/07/2024 08/07/2024 7:05 PM EDT Vikram AMARO LAB URINE ORDERABLES Final Res ult Performing Organization Address [facility]/ZIP Co de Phone Number [facility] [address] [place] [address], [place] [phone] * Lavender tube (08/07/2024 12:00 AM EDT) Extra Tube Hold for add-ons. 08/07/2024 9:[address] [facility] Comment:Auto resulted. Blood Venous blood specimen / Unknown 08/07/2024 08/07/2024 7:05 PM EDT Vikram AMARO LAB BLOOD ORDERABLES Final Res ult Performing Organization Address [facility] Co de Phone Number [facility] [address] [place] [address], [place] [phone] * SST tube (08/07/2024 12:00 AM EDT) Extra Tube Hold for add-ons. 08/07/2024 9:[address] [facility] Comment:Auto resulted. Blood Venous blood specimen / Unknown 08/07/2024 08/07/2024 7:05 PM EDT Vikram AMARO LAB BLOOD ORDERABLES Final Res ult Performing Organization Address City/[facility]/ZIP Co de Phone Number [facility] [address] [place] [address], [place] [phone] * (ABNORMAL) CBC auto differential (08/07/2024 12:00 AM EDT) WBC 5.1 4.8 - 10.8 K/[facility] LAB HEMETOLOGY METHOD 08/07/2024 7:[address] [facility] RBC 4.80 4.50 - 5.50 M/mcL LAB HEMETOLOGY METHOD 08/07/2024 7:[address] [facility] Hemoglobin 14.1 13.5 - 17.5 g/dL LAB HEMETOLOGY METHOD 08/07/2024 7:28 PM [facility] Hematocrit 42.6 42.0 - 54.0 % LAB HEMETOLOGY METHOD 08/07/2024 7:28 PM [facility] MCV 89.5 79.0 - 98.0 FL LAB HEMETOLOGY METHOD 08/07/2024 7:28 PM [facility] MCH 29.6 27.0 - 32.0 pcg LAB HEMETOLOGY METHOD 08/07/2024 7:28 PM [facility] MCHC 33.1 32.0 - 37.0 g/dL LAB HEMETOLOGY METHOD 08/07/2024 7:28 PM [facility] RDW 12.7 11.0 - 15.0 % LAB HEMETOLOGY METHOD 08/07/2024 7:28 PM [facility] Platelets 162 130 - 400 K/mcL LAB HEMETOLOGY METHOD 08/07/2024 7:28 PM [facility] MPV 11.5(H) 7.0 - 11.0 FL LAB HEMETOLOGY METHOD 08/07/2024 7:28 PM [facility] NRBC 0.0 <1.0 % LAB HEMETOLOGY METHOD 08/07/2024 7:28 PM [facility] NRBC Absolute 0.00 <0.10 K/mcL LAB HEMETOLOGY METHOD 08/07/2024 7:28 PM [facility] Neutrophils Relative 48.3 % LAB HEMETOLOGY METHOD 08/07/2024 7:28 PM [facility] Lymphocytes Relative 36.5 % LAB HEMETOLOGY METHOD 08/07/2024 7:[address] [facility] Monocytes Relative 7.7 % LAB HEMETOLOGY METHOD 08/07/2024 7:[address] [facility] Eosinophils Relative 6.7 % LAB HEMETOLOGY METHOD 08/07/2024 7:28 PM [facility] Basophils Relative 0.6 % LAB HEMETOLOGY METHOD 08/07/2024 7:[address] [facility] Immature Granulocytes Relative 0.2 % LAB HEMETOLOGY METHOD 08/07/2024 7:[address] [facility] Neutrophils Absolute 2.45 1.50 - 7.00 K/mcL LAB HEMETOLOGY METHOD 08/07/2024 7:28 PM [facility] Lymphocytes Absolute 1.85 1.00 - 5.00 K/mcL LAB HEMETOLOGY METHOD 08/07/2024 7:[address] [facility] Monocytes Absolute 0.39 0.20 - 1.00 K/mcL LAB HEMETOLOGY METHOD 08/07/2024 7:[address] [facility] Eosinophils Absolute 0.34 0.00 - 0.50 K/mcL LAB HEMETOLOGY METHOD 08/07/2024 7:28 PM [facility] Basophils Absolute 0.03 0.00 - 0.20 K/mcL LAB HEMETOLOGY METHOD 08/07/2024 7:28 PM [facility] Immature Granulocytes Absolute 0.01 0.00 - 0.03 K/mcL LAB HEMETOLOGY METHOD 08/07/2024 7:[address] [facility] Blood Venous blood specimen / Unknown 08/07/2024 08/07/2024 7:05 PM EDT us Vikram AMARO LAB BLOOD ORDERABLES Final Res ult [facility] [address] [place] [address], [place] [phone] * Vitamin D 25 hydroxy (08/07/2024 12:00 AM EDT) Vit D, 25-Hydroxy 66.8 30.0 - 80.0 ng/mL LAB CHEMISTRY METHOD 08/07/2024 9:[address] [facility] Blood Venous blood specimen / Unknown 08/07/2024 08/07/2024 7:05 PM EDT us Vikram AMARO LAB BLOOD ORDERABLES Final Res ult [facility] [address] [place] [address], [place] [phone] * Thyroid stimulating hormone (08/07/2024 12:00 AM EDT) Pathologist [facility] TSH 1.14 0.40 - 4.00 mcIU/mL LAB CHEMISTRY METHOD 08/07/2024 9:[address] [facility] Blood Venous blood specimen / Unknown 08/07/2024 08/07/2024 7:05 PM EDT us Vikram AMARO LAB BLOOD ORDERABLES Final Res ult [facility] [address] [place] [address], [place] [phone] * Prostate specific antigen screen (08/07/2024 12:00 [...] Final Res ult Performing Organization Address [facility]/ZIP Co de Phone Number [facility] [address] [place] [address], [place] [phone] * Magnesium (08/07/2024 12:00 AM EDT) Magnesium 2.1 1.9 - 2.6 mg/dL LAB CHEMISTRY METHOD 08/07/2024 8:[address] [facility] Blood Venous blood specimen / Unknown 08/07/2024 08/07/2024 7:05 PM EDT Vikram AMARO LAB BLOOD ORDERABLES Final Res ult Performing Organization Address [facility] Co de Phone Number [facility] [address] [place] [address], [place] [phone] * (ABNORMAL) Hemoglobin A1c (08/07/2024 12:00 AM [...] Final Res ult Performing Organization Address [facility]/ZIP Co de Phone Number [facility] [address] [place] [address], [place] [phone] * Thyroxine free (08/07/2024 12:00 AM EDT) Free T4 1.20 0.70 - 1.80 ng/dL LAB CHEMISTRY METHOD 08/07/2024 9:[address] [facility] Blood Venous blood specimen / Unknown 08/07/2024 08/07/2024 7:05 PM EDT us Vikram AMARO LAB BLOOD ORDERABLES Final Res ult [facility] [address] [place] [address], * C-reactive protein (08/07/2024 12:00 AM EDT) [facility] C-Reactive Protein <0.29 <=0.50 mg/dL LAB CHEMISTRY METHOD 08/07/2024 8:[address] [facility] Blood Venous blood specimen / Unknown 08/07/2024 08/07/2024 7:05 PM EDT us Vikram AMARO LAB BLOOD ORDERABLES Final Res ult [facility] [address] [place] [address], [place] [phone] * (ABNORMAL) Vitamin B12 (08/07/2024 12:00 AM EDT) Pathologist [facility] Vitamin B-12 939(H) 250 - 900 pcg/mL LAB CHEMISTRY METHOD 08/07/2024 9:[address] [facility] Blood Venous blood specimen / Unknown 08/07/2024 08/07/2024 7:05 PM EDT us Vikram AMARO LAB BLOOD ORDERABLES Final Res ult [facility] [address] [place] [address], * (ABNORMAL) Drug abuse screen 8a panel, [...] Negative LAB CHEMISTRY METHOD 5 8:55 PM [facility] Opiate Screen, Ur Negative Negative LAB CHEMISTRY METHOD 5 8:55 PM [facility] Cannabinoid (THC) Screen, Ur Negative Negative LAB CHEMISTRY METHOD 5 8:[address] [facility] Comment:Specimens from patie nts taking pantoprazole sodium (Protonix) have been shown to produce false positive results. Oxycodone Screen, Ur Negative Negative LAB CHEMISTRY METHOD 5 8:[address] [facility] Fentanyl, Ur Negative Negative LAB CHEMISTRY METHOD 5 8:55 PM [facility] Urine Urine specimen obtained [...] Res ult [facility] [address] [place] [address], [place] [phone] * (ABNORMAL) Comprehensive metabolic panel (08/07/2024 12:00 AM EDT) Sodium 140 133 - 145 mmol/L LAB CHEMISTRY METHOD 08/07/2024 9:16 PM [facility] Potassium 4.1 3.5 - 5.5 mmol/L LAB CHEMISTRY METHOD 08/07/2024 9:16 PM [facility] Chloride 109 96 - 110 mmol/L LAB CHEMISTRY METHOD 08/07/2024 9:16 PM [facility] CO2 25 21 - 32 mmol/L LAB CHEMISTRY METHOD 08/07/2024 9:16 PM [facility] Anion Gap 6 3 - 11 LAB CHEMISTRY METHOD 08/07/2024 9:16 PM [facility] Glucose 103(H) 70 - 100 mg/dL LAB CHEMISTRY METHOD 08/07/2024 9:16 PM [facility] BUN 20 5 - 25 mg/dL LAB CHEMISTRY METHOD 08/07/2024 9:16 PM [facility] Creatinine 1.06 0.70 - 1.30 mg/dL LAB CHEMISTRY METHOD 08/07/2024 9:16 PM [facility] eGFR 73 >=60 mL/min/1. 73m2 LAB CHEMISTRY METHOD 08/07/2024 9:16 PM [facility] Comment:Calculation based on the Chronic Kidney Disease Epidemiology Collaboration (CKD-EPI) equation refit without adjustment for race. BUN/Creatinine Ratio 18.9 LAB CHEMISTRY METHOD 08/07/2024 9:16 PM [facility] Calcium 8.9 8.5 - 10.5 mg/dL LAB CHEMISTRY METHOD 08/07/2024 9:16 PM [facility] AST (SGOT) 20 10 - 42 unit/L LAB CHEMISTRY METHOD 08/07/2024 9:16 PM [facility] ALT (SGPT) 27 10 - 60 unit/L LAB CHEMISTRY METHOD 08/07/2024 9:16 PM [facility] Alkaline Phosphatase 58 42 - 121 unit/L LAB CHEMISTRY METHOD 08/07/2024 9:16 PM [facility] Total Protein 7.3 6.0 - 8.0 g/dL LAB CHEMISTRY METHOD 08/07/2024 9:16 PM [facility] Albumin 4.1 3.2 - 5.0 g/dL LAB CHEMISTRY METHOD 08/07/2024 9:16 PM [facility] Total Bilirubin 0.6 0.0 - 1.4 mg/dL LAB CHEMISTRY METHOD 08/07/2024 9:16 PM [facility] Blood Venous blood specimen / Unknown 08/07/2024 08/07/2024 7:05 PM EDT us Vikram AMARO LAB BLOOD ORDERABLES Final Res ult [facility] [address] [place] [address], [place] [phone] documented in this encounter Visit Diagnoses Diagnosis Essential (primary) hypertension Unspecified essential hypertension Unspecified abdominal hernia without obstruction or gangrene Other alf (current) drug therapy Encounter for screening for malignant neoplasm of prostate documented in this encounter Care Teams Neuropathologist Relationship Specialty Start Date End Date Physician, Pcp Unknown PCP - General 08/08/24 documented as of this encounter
--- OUTSIDE RECORDS SUMMARY | 2025-03-31 14:39 | XMS_ITS | Encounter Summary ---
Author Organization [facility] Address [address] [facility] [address] [place] [address] Phone Care Team Providers Care Cloth Hauler Name Role Phone Dorian Villalobos MD Unavailable [phone] Vladimir Jones MD Unavailable [phone] Karen Love MD Primary Care Provide r Roger Benedict MD Primary Care Provider + Encounter Details Date Type Department Care Team (Late st Contact Info) Description 08/01/2020 Procedure Pass [facility], Ct Scan - [address] [address] Social History Tobacco Use Types Packs/Day Years [...] on filedocumented in this encounter Care Teams Cloth Hauler Relationship Specialty Start Date End Date Karen Love MD [address] [place] [address] PCP - General Internal Medicine 05/29/20 12/21/21 Roger Benedict MD [address] [place] [id number] PCP - General Internal Medicine 12/22/21 Dorian Villalobos MD [address] [place] [address] [address] [place] [address] [email or web address] Historical LMR Provider 01/18/17 04/10/21 Vladimir Jones MD [address] [place] [address] Historical LMR Provider 01/18/17 documented as of this encounter Additional Source Comments The information contained in this document represents components of the legal health record. It is not the complete legal health record.[facility]
--- OUTSIDE RECORDS SUMMARY | 2025-03-31 14:39 | XMS_ITS | Encounter Summary ---
Author Organization [facility] Address [address] [place] [address] [place] [address] Phone Care Team Providers Care On Site Manager Name Role Phone Vladimir Jones MD Primary Care Provider [phone] Dorian Villalobos MD Unavailable [phone] Vladimir Jones MD Unavailable [phone] Karen Love MD Primary Care Provide r Roger Benedict MD Primary Care Provider + Encounter Details Date Type Department Care Team (Late st Contact Info) Description 08/29/2017 Transcribe Orders [facility] Phleb Main [address] [place] [address] Vladimir Jones MD [address] [place] [address] [place] [address] Hypertension, unspecified type (Primary Dx); Elevated cholesterol; [...] * Magnesium (08/29/2017 2:27 PM EDT) Pathologist [facility] MAGNESIUM 1.8 1.6 - 2.6 mg/dL [facility] Blood 08/29/2017 2:27 PM EDT 08/29/2017 2:31 PM EDT us Vladimir Jones MD LAB BLOOD BKR ORDERABLES Final Result Performing Organization Address [facility]/ZIP Co de Phone Number [address] [address] * TSH (08/29/2017 2:27 PM EDT) [facility] TSH 1.38 0.27 - 4.20 uIU/mL [facility] Blood 08/29/2017 2:27 PM EDT 08/29/2017 2:31 PM EDT us Vladimir Jones MD LAB BLOOD BKR ORDERABLES Final Result Performing Organization Address [facility] Co de Phone Number [address] [address] * T4, total (08/29/2017 2:27 PM EDT) [facility] THYROXINE 6.6 4.6 - 12.0 ug/dL [facility] Blood 08/29/2017 2:27 PM EDT 08/29/2017 2:31 PM EDT us Vladimir Jones MD LAB BLOOD ORDERABLES Final Res ult Performing Organization Address [facility] Co de Phone Number [address] [address] * (ABNORMAL) Lipid panel (08/29/2017 2:27 PM EDT) [facility] HDL 64 mg/dL [facility] Comment: Interpretation: Risk Level Males Decreased >45 mg/dL Average 40-45 mg/dL Increased <40 mg/dL CHOLESTEROL 178 0 - 240 mg/dL [facility] TRIGLYCERIDES 98 30 - 160 mg/dL [facility] LDL 94 50 - 129 mg/dL [facility] Comment: LDL levels in terms of risk for coronary heart disease: <100 mg/dL: Optimal 100-129 mg/dL: Near or above optimal 130-159 mg/dL: Borderline high 160-189 mg/dL: High >190 mg/dL: Very High CARDIAC RISK RATIO 2.8(L) 3.4 - 5.0 C [facility] Blood 08/29/2017 2:27 PM EDT 08/29/2017 2:31 PM EDT us Vladimir Jones MD LAB BLOOD BKR ORDERABLES Final Result [facility] [address] [place] [address] * (ABNORMAL) Comprehensive metabolic panel (08/29/2017 2:27 PM EDT) SODIUM 139 133 - 146 mmol/L [facility] POTASSIUM 4.3 3.3 - 5.1 mmol/L [facility] CHLORIDE 103 96 - 108 mmol/L [facility] CO2 21 21 - 35 mmol/L [facility] BUN 18 6 - 19 mg/dL [facility] CREATININE 1.10 0.5 - 1.5 mg/dL [facility] GLUCOSE 109(H) 70 - 99 mg/dL [facility] ALBUMIN 4.5 3.9 - 4.8 g/dL [facility] TOTAL PROTEIN 7.4 6.5 - 8.0 g/dL [facility] CALCIUM 9.1 8.4 - 10.3 mg/dL [facility] ALKALINE PHOSPHATASE 46 39 - 117 U/L [facility] TOTAL BILIRUBIN 0.5 0.0 - 1.2 mg/dL [facility] AST 22 0 - 37 U/L [facility] ALT 20 0 - 40 U/L [facility] GLOBULIN 2.9 1 - 4.8 g/dL [facility] EGFR 68 >59 mL/min/1.7 3m2 [facility] Comment:If patient is black, multiply result by 1.159. The eGFR calculation has changed from the MDRD equation to the CKD-EPI equation as of June 06, 2017. ANION GAP 19 10 - 20 mmol/L [facility] Blood 08/29/2017 2:27 PM EDT 08/29/2017 2:31 PM EDT us Vladimir Jones MD LAB BLOOD BKR ORDERABLES Final Result Performing Organization Address City/[facility] Co de Phone Number [address] [address] * CBC (08/29/2017 2:27 PM EDT) [facility] WBC 5.24 3.40 - 11.20 K/uL [facility] RBC 4.64 4.50 - 5.50 M/uL [facility] HGB 14.0 13.0 - 17.0 g/dL [facility] HCT 40.1 40.0 - 51.0 % [facility] PLT 152 130 - 400 K/uL [facility] MCV 86.4 79.0 - 98.0 fL [facility] MCH 30.2 27.0 - 34.8 pg [facility] MCHC 34.9 31.5 - 36.0 g/dL [facility] RDW 12.6 10.8 - 14.6 % [facility] MPV 10.7 9.4 - 12.4 fl [facility] NRBC 0.00 /100 WBCs [facility] ABSOLUTE NRBC 0.00 K/uL [facility] Blood 08/29/2017 2:27 PM EDT 08/29/2017 2:31 PM EDT us Vladimir Jones MD LAB BLOOD BKR ORDERABLES Final Result Performing Organization Address City/[facility]/ZIP Co de Phone Number [address] [address] documented in this encounter Visit Diagnoses Diagnosis Hypertension, unspecified type- Primary Elevated cholesterol Pure hypercholesterolemia Fatigue, unspecified type documented in this encounter Care Teams On Site Manager Relationship Specialty Start Date End Date Vladimir Jones MD [address] [place] [address] [place] [address] PCP - General 01/17/17 05/28/20 Karen Love MD [address] [place] [address] PCP - General Internal Medicine 05/29/20 12/21/21 Roger Benedict MD [address] [place] [address] PCP - General Internal Medicine 12/22/21 Dorian Villalobos MD [address] [place] [address] [address] [place] [address] [email or web address] Historical LMR Provider 01/18/17 04/10/21 Vladimir Jones MD [address] [place] [address] Historical LMR Provider 01/18/17 documented as of this encounter Additional Source Comments The information contained in this document represents components of the legal health record. It is not the complete legal health record.[facility]
--- OUTSIDE RECORDS SUMMARY | 2025-03-31 14:39 | XMS_ITS | Clinical Summary ---
Author Organization [facility] Address [address] [place] [address] Phone Care Team Providers Care Operations Consultant Name Role Phone Vladimir Jones MD Unavailable [phone] Roger Benedict MD Primary Care Provider [...] EDT) SODIUM 140 133 - 146 mmol/L [facility] POTASSIUM 4.5 3.3 - 5.1 mmol/L [facility] Comment:Specimen slightly he molyzed, result may be falsely elevated. CHLORIDE 105 96 - 108 mmol/L [facility] CO2 23 21 - 35 mmol/L [facility] BUN 20(H) 6 - 19 mg/dL [facility] CREATININE 1.00 0.5 - 1.5 mg/dL [facility] GLUCOSE 111(H) 70 - 99 mg/dL [facility] ALBUMIN 4.6 3.9 - 4.8 g/dL [facility] TOTAL PROTEIN 7.3 6.5 - 8.0 g/dL [facility] CALCIUM 9.6 8.4 - 10.3 mg/dL [facility] ALKALINE PHOSPHATASE 60 39 - 117 U/L [facility] TOTAL BILIRUBIN 0.5 0.0 - 1.2 mg/dL [facility] AST 24 0 - 37 U/L [facility] ALT 18 0 - 40 U/L [facility] GLOBULIN 2.7 1 - 4.8 g/dL [facility] EGFR 78 >59 mL/min/1.7 3m2 [facility] Comment:Estimated glomerular filtration rate calculated using the CKD-EPI refit equation. ANION GAP 17 10 - 20 mmol/L [facility] Blood 10/07/2024 12:3 3 PM EDT 10/07/2024 12:37 PM EDT us Ana Doe MD LAB BLOOD BKR ORDERABL ES Final Result [address] [id number] * (ABNORMAL) Lipid panel (10/07/2024 12:33 PM EDT) HDL 61 mg/dL [facility] Comment: Interpretation <40 mg/dL: Low HDL cholesterol (major risk factor for CHD) Greater than or equal to 60 mg/dL: High HDL cholesterol ( negative risk factor for CHD) HDL - cholesterol is affected by a number of factors, e.g. smoking, excerise, hormones, sex and age. CHOLESTEROL 166 0 - 240 mg/dL [facility] TRIGLYCERIDES 122 30 - 160 mg/dL [facility] LDL 81 50 - 129 mg/dL [facility] Comment: LDL levels in terms of risk for coronary heart disease: <100 mg/dL: Optimal 100-129 mg/dL: Near or above optimal 130-159 mg/dL: Borderline high 160-189 mg/dL: High >190 mg/dL: Very High CARDIAC RISK RATIO 2.7(L) 3.4 - 5.0 C [facility] Blood 10/07/2024 12:3 3 PM EDT 10/07/2024 12:37 PM EDT us Ana Doe MD LAB BLOOD BKR ORDERABL ES Final Result [address] [address] from Last 3 Months or Most Recently Relevant to Health Maintenance Insurance [facility] MEDICARE REPLACEMENT [employer] [id number] [facility] MEDICARE [facility]PLACEMENT [facility] MEDICARE REPLACEMENT [facility] MEDICARE REPLACEMENT [facility] MEDICARE REPLACEMENT [facility] MEDICARE REPLACEMENT Care Teams Operations Consultant Relationship Specialty Start Date End Date Roger Benedict MD [address] [place] [address] PCP - General Internal Medicine 12/22/21 Vladimir Jones MD [address] [place] [address] [place] [address] Historical LMR Provider 01/18/17 Additional Source Comments The information contained in this document represents components of the legal health record. It is not the complete legal health record.[facility]
--- OUTSIDE RECORDS SUMMARY | 2025-03-31 14:39 | XMS_ITS | Clinical Summary ---
Author Organization [address] Address [address] [place] [address] Phone Care Team Providers Care Lock And Dam Operator Name Role Phone Physician, Pcp Unknown Primary [...] patient's age to complete this topic Insurance [facility] PL[facility] Care Teams Lock And Dam Operator Relationship Specialty Start Date End Date Physician, Pcp Unknown PCP - General 08/08/24
--- OUTSIDE RECORDS SUMMARY | 2025-03-31 14:39 | XMS_ITS | Encounter Summary ---
Author Organization [facility] Address [address] [facility] [address] [place] [address] Phone Care Team Providers Care Unarmed Security Officer Name Role Phone Dorian Villalobos MD Unavailable [phone] Vladimir Jones MD Unavailable [phone] Karen Love MD Primary Care Provide r Roger Benedict MD Primary Care Provider + Encounter Details Date Type Department Care Team (Latest Contact Info) Description 06/17/2020 Transcribe Orders [facility] Phleb Main [address] [place] [address] Karen Love MD [address] [place] [address] Essential hypertension, malignant (Primary Dx); Anxiety hyperventilation [...] URINE MICROALBUMIN <1.2 0 - 2.3 mg/dL [facility] URINE CREATININE 61 mg/dL [facility] MICROALB/CRE RATIO NOT CALCULATED 0 - 20 mg/g Cre [facility] Comment:due to Microalbumin <1.2 Urine (Urine) 06/17/2020 2:2 4 PM EDT 06/17/2020 2:30 PM EDT us Karen Love MD LAB URINE ORDERABLES Final Result Performing Organization Address [facility]/ZIP Co de Phone Number [address] [address] * (ABNORMAL) Hemoglobin A1c (06/17/2020 2:24 PM EDT) HEMOGLOBIN A1C 6.1(H) 4.3 - 5.8 % [facility] Blood 06/17/2020 2:24 PM EDT 06/17/2020 2:29 PM EDT us Karen Love MD LAB BLOOD BKR ORDERAB LES Final Result Performing Organization Address [facility]/ZIP Co de Phone Number [address] [address] * TSH with reflex (06/17/2020 2:24 PM EDT) TSH 1.14 0.27 - 4.20 uIU/mL [facility] Blood 06/17/2020 2:24 PM EDT 06/17/2020 2:29 PM EDT us Karen Love MD LAB BLOOD BKR ORDERAB LES Final Result Performing Organization Address [facility] Co de Phone Number [address] [address] * PSA (screening) (06/17/2020 2:24 PM EDT) PSA 1.57 0 - 4.00 ng/mL [facility] Blood 06/17/2020 2:24 PM EDT 06/17/2020 2:30 PM EDT Karen Love MD LAB BLOOD BKR ORDERAB LES Final Result Performing Organization Address City/[facility]/ZIP Co de Phone Number [address] [address] * (ABNORMAL) Lipid panel (06/17/2020 2:24 PM EDT) HDL 59 mg/dL [facility] Comment: Interpretation <40 mg/dL: Low HDL cholesterol (major risk factor for CHD) Greater than or equal to 60 mg/dL: High HDL cholesterol ( negative risk factor for CHD) HDL - cholesterol is affected by a number of factors, e.g. smoking, excerise, hormones, sex and age. CHOLESTEROL 196 0 - 240 mg/dL [facility] TRIGLYCERIDES 106 30 - 160 mg/dL [facility] LDL 116 50 - 129 mg/dL [facility] Comment: LDL levels in terms of risk for coronary heart disease: <100 mg/dL: Optimal 100-129 mg/dL: Near or above optimal 130-159 mg/dL: Borderline high 160-189 mg/dL: High >190 mg/dL: Very High CARDIAC RISK RATIO 3.3(L) 3.4 - 5.0 C [facility] Blood 06/17/2020 2:24 PM EDT 06/17/2020 2:29 PM EDT us Karen Love MD LAB BLOOD BKR ORDERAB LES Final Result Performing Organization Address City/[facility]/ZIP Co de Phone Number [address] [address] * (ABNORMAL) Comprehensive metabolic panel (06/17/2020 2:24 PM EDT) SODIUM 140 133 - 146 mmol/L [facility] POTASSIUM 4.7 3.3 - 5.1 mmol/L [facility] CHLORIDE 104 96 - 108 mmol/L [facility] CO2 27 21 - 35 mmol/L [facility] BUN 19 6 - 19 mg/dL [facility] CREATININE 0.90 0.5 - 1.5 mg/dL [facility] GLUCOSE 105(H) 70 - 99 mg/dL [facility] ALBUMIN 4.6 3.9 - 4.8 g/dL [facility] TOTAL PROTEIN 7.4 6.5 - 8.0 g/dL [facility] CALCIUM 9.5 8.4 - 10.3 mg/dL [facility] ALKALINE PHOSPHATASE 52 39 - 117 U/L [facility] TOTAL BILIRUBIN 0.4 0.0 - 1.2 mg/dL [facility] AST 24 0 - 37 U/L [facility] ALT 20 0 - 40 U/L [facility] GLOBULIN 2.8 1 - 4.8 g/dL [facility] EGFR 85 >59 mL/min/1.7 3m2 [facility] Comment:Estimated glomerular filtration rate calculated using the CKD-EPI equation. ANION GAP 14 10 - 20 mmol/L [facility] Blood 06/17/2020 2:24 PM EDT 06/17/2020 2:29 PM EDT us Karen Love MD LAB BLOOD BKR ORDERAB LES Final Result [facility] [address] [place] [address] * CBC and differential (06/17/2020 2:24 PM EDT) WBC 4.71 4.00 - 11.00 K/uL [facility] RBC 4.70 3.90 - 5.69 M/uL [facility] HGB 14.4 12.4 - 17.3 g/dL [facility] HCT 42.0 37.0 - 51.0 % [facility] PLT 154 140 - 430 K/uL [facility] MCV 89.4 78.0 - 97.0 fL [facility] MCH 30.6 25.0 - 33.0 pg [facility] MCHC 34.3 32.0 - 36.0 g/dL [facility] RDW 12.1 11.0 - 15.0 % [facility] MPV 11.3 8.4 - 12.8 fl [facility] NRBC 0.00 0 /100 WBCs [facility] ABSOLUTE NRBC 0.00 0 K/uL [facility] DIFF METHOD Auto [facility] NEUTS 50.2 43.0 - 75.0 % [facility] LYMPHS 33.5 18.2 - 47.4 % [facility] MONOS 7.6 4.00 - 11.00 % [facility] EOS 7.4 0.0 - 8.0 % [facility] BASOS 1.1 0.0 - 2.0 % [facility] Granulocytes, immature (%) 0.2 0.0 - 0.9 % [facility] ABSOLUTE NEUTS 2.36 1.80 - 7.70 K/uL [facility] ABSOLUTE LYMPHS 1.58 1.00 - 3.10 K/uL [facility] ABSOLUTE MONOS 0.36 0.20 - 0.80 K/uL [facility] ABSOLUTE EOS 0.35 0.00 - 0.80 K/uL [facility] ABSOLUTE BASOS 0.05 0.00 - 0.09 K/uL [facility] Granulocytes, immature 0.01 0.00 - 0.05 K/uL [facility] Blood 06/17/2020 2:24 PM EDT 06/17/2020 2:29 PM EDT us Karen Love MD LAB BLOOD BKR ORDERAB LES Final Result [address] [address] documented in this encounter Visit Diagnoses Diagnosis Essential hypertension, malignant- Primary Anxiety hyperventilation Respiratory malfunction arising from mental factors documented in this encounter Care Teams Unarmed Security Officer Relationship Specialty Start Date End Date Karen Love MD [address] [place] [address] PCP - General Internal Medicine 05/29/20 12/21/21 Roger Benedict MD [address] [place] [address] PCP - General Internal Medicine 12/22/21 Dorian Villalobos MD [address] [place] [address] [address] [place] [address] [email or web address] Historical LMR Provider 01/18/17 04/10/21 Vladimir Jones MD [address] [place] [address] Historical LMR Provider 01/18/17 documented as of this encounter Additional Source Comments The information contained in this document represents components of the legal health record. It is not the complete legal health record.[facility]
--- OUTSIDE RECORDS SUMMARY | 2025-03-31 14:39 | XMS_ITS | Clinical Summary ---
Author Organization [employer] Address [address] [place] [address] Care Team Providers Care Drop Wire Operator Name Role Phone Kd Eaton DMD [...] to Health Maintenance Insurance DENTAL - DQ [facility] Care Teams Drop Wire Operator Relationship Specialty Start Date End Date Kd Eaton DMD [address] [place] [address] Dental Buckle Wire Inserter 04/01/24
== END 2025-03-31 13:10 | disposition home or self-care (01) ==
LOC: HO.HCS 12:48
PROVIDERS: PCP Internal Medicine; Visit Provider Internal Medicine
DX: I49.1 Atrial premature depolarization (principal); I49.3 Ventricular premature depolarization; I10 Essential (primary) hypertension; R94.39 Abnormal result of other cardiovascular function study
CPT/HCPCS: 99214; G2211

== ENCOUNTER → 2025-03-31 12:47 | Outpatient (BNVA) | payer OTHER, SELFPAY | PROVIDERS: PCP Internal Medicine; Visit Provider Internal Medicine | DX: I49.3 Ventricular premature depolarization (principal); I10 Essential (primary) hypertension; I49.1 Atrial premature depolarization; R94.39 Abnormal result of other cardiovascular function study; Z79.899 Other long term (current) drug therapy | CPT/HCPCS: 99212 ==